=== PATIENT | female | born 1950 | race African-American/Black ===

== ENCOUNTER 2021-09-02 21:50 | Inpatient (IN) | payer MEDICARE, OTHER ==
[~2021-09-02] VITALS: Ht 154.9 cm; Wt 63.5 kg
--- NOTE | 2021-09-02 22:31 | NUR ---
PT BIBRA [facility] 30 C/O FEVER 101 & WHEEZING. UPON TRIAGE RECTAL TEMP 103.6. PT A/OX0. TOLERATING R/A AT 99%. CONNECTED PT TO POX AND MONITOR
--- NOTE | 2021-09-02 22:32 | NUR ---
PT COMING FROM [facility]. POLST: FULL CODE
[2021-09-02] MEDS ORDERED: ACETAMINOPHEN 650 MG/SUPP.RECT RC ONE ×2 (22:45→23:00)
[2021-09-02] MEDS ORDERED: ALBUTEROL FS 2.5 MG/0.5 ML VIAL.NEB ONE (22:46)
--- NOTE | 2021-09-02 22:50 | NUR ---
RAC #18G S/L; PATENT AND INTACT. BLOOD COLLECTED AND SENT TO LAB
--- NOTE | 2021-09-02 22:50 | NUR ---
RT AT PT'S BEDSIDE
[2021-09-02] MEDS ORDERED: ALBUTEROL FS 2.5 MG/0.5 ML VIAL.NEB NEB ONE (23:00)
[2021-09-02 23:14] LABS: BASOPHILS # (AUTO) 0.1 K/uL (0.0-0.2); BASOPHILS % (AUTO) 0.6 % (0.0-2.0); EOSINOPHILS % (AUTO) 0.1 % (0.0-6.0); HEMATOCRIT 34 % (33-45); HEMOGLOBIN 10.9 g/dL (11.5-14.8); LYMPHOCYTES # (AUTO) 1.7 K/uL (0.8-4.8); LYMPHOCYTES % (AUTO) 15.4 % (20.0-44.0); MEAN CORPUSCULAR HGB CONC 32 g/dl (31.0-36.0); MEAN CORPUSCULAR VOLUME 101 fL (82-100); MONOCYTES # (AUTO) 1.8 K/uL (0.1-1.30); MONOCYTES % (AUTO) 16.6 % (2.0-12.0); NEUTROPHILS # (AUTO) 7.5 K/uL (1.8-8.9); NEUTROPHILS % (AUTO) 67.3 % (43.0-81.0); PLATELET COUNT (AUTO) 269 K/uL (150-450); RED BLOOD CELL COUNT(AUTO) 3.36 MIL/uL (4.0-5.2); WHITE BLOOD COUNT (AUTO) 11.1 K/uL (4.3-11.0)
[2021-09-02 23:17] LABS: BILIRUBIN,URINE NEGATIVE (NEGATIVE); COLOR,URINE YELLOW (YELLOW); LEUKOCYTE ESTERASE ,URINE LARGE (NEGATIVE); NITRITE, URINE POSITIVE (NEGATIVE); PH,URINE 7.5 (5.0-8.0); PROTEIN,URINE 100 mg/dl (NEGATIVE); UGLUCOSE NEGATIVE (NEGATIVE)
[2021-09-02 23:46] LABS: CALCIUM, SERUM 8.4 mg/dL (8.5-10.1); CARBON DIOXIDE 22 mmol/L (21-32); CHLORIDE 105 mmol/L (98-107); CREATININE 1.2 mg/dL (0.6-1.3); GLUCOSE 123 mg/dL (74-106); POTASSIUM 4.3 mmol/L (3.5-5.1); SODIUM SERUM 138 mmol/L (136-145); UREA NITROGEN, BLOOD 12 mg/dL (7-18)
[2021-09-02 23:59] LABS: ALANINE AMINOTRANSFERASE 32 U/L (12-78); ALBUMIN 2.8 g/dL (3.4-5.0); ALKALINE PHOSPHATASE 79 U/L (46-116); ASPARTATE AMINOTRANSFERASE 21 U/L (15-37); BILIRUBIN,DIRECT 0.2 mg/dL (0.0-0.2); BILIRUBIN,TOTAL 0.6 mg/dL (0.2-1.0); TOTAL PROTEIN, SERUM 7.1 g/dL (6.4-8.2)
[2021-09-03] VITALS (7 sets, daily range): BP systolic 92–132; BP diastolic 54–77
[2021-09-03] MEDS ORDERED: ONDANSETRON HCL/PF 4 MG/2 ML VIAL IVP PRN
[2021-09-03] MEDS ORDERED: MAGNESIUM HYDROXIDE 30 ML UDC PO PRN
[2021-09-03] MEDS ORDERED: Z GUARD REMEDY 4 OZ OINT TP PRN
[2021-09-03] MEDS ORDERED: MAG HYDROX/AL HYDROX/SIMETH 30 ML UDC PO PRN
[2021-09-03] MEDS ORDERED: ACETAMINOPHEN 325 MG TABLET PO PRN
[2021-09-03] MEDS ORDERED: CEFTRIAXONE 1GM BAG (ER ONLY) 1 GM/50 ML PIGGYBACK IV ONE
[2021-09-03] MEDS ORDERED: ZOLPIDEM TARTRATE 5 MG TABLET PO PRN
[2021-09-03] MEDS ORDERED: CEFTRIAXONE 1GM BAG (ER ONLY) 50 ML IV ONE (00:17)
--- NOTE | 2021-09-03 00:39 | NUR ---
TELE 324-2
--- NOTE | 2021-09-03 00:55 | NUR ---
REPORT GIVEN TO NIDIA ALVARADO
--- NOTE | 2021-09-03 01:22 | NUR ---
PT TRANSFERRED TO 3W VIA ACLS PROTOCOL; VSS. ALL BELONGINGS WITH PT.
[2021-09-03] MEDS: IV NS 0.9% 1,000 ML IV PRN ×3 (01:51→20:11)
[2021-09-03] MEDS ORDERED: PANTOPRAZOLE 40 MG TABLET.DR PO SCH (07:30)
--- NOTE | 2021-09-03 07:35 | NUR ---
MACHINE HOSTLER OPENING NOTES RECEIVED IN BED, AWAKE, ALERT AND ORIENTED X1. VS STABLE, NO SHORTNESS OF BREATH NOTED, NOT IN ANY FORM OF RESPIRATORY DISTRESS. ON EXTERNAL CARDIAC MONITORING, SINUS RHYTHM 80. ON ROOM AIR, TOLERATED WELL. WITH IVF OF NORMAL SALINE 1L AT 125 ML/HR INFUSING WELL AT RIGHT ANTECUBITAL G18; PATENT AND INTACT. BED IS IN LOWEST LOCKED POSITION. TABLE AND CALL LIGHT WITHIN REACH. SAFETY MEASURES IN PLACED. NEEDS ATTENDED. WILL CONTINUE TO MONITOR
[2021-09-03 07:50] LABS: CALCIUM, SERUM 8.4 mg/dL (8.5-10.1); CREATININE 1.1 mg/dL (0.6-1.3); POTASSIUM 3.9 mmol/L (3.5-5.1)
[2021-09-03 08:09] LABS: BACTERIA,URINE MANY /HPF (None Seen); RBC,URINE 20-30 /HPF (0-2); SQUAMOUS EPITHELIAL CELL,UR None Seen /HPF (None Seen); WBC,URINE >100 /HPF (0-3)
[2021-09-03 08:24] LABS: BASOPHILS % (AUTO) 0.5 % (0.0-2.0); EOSINOPHILS % (AUTO) 0.3 % (0.0-6.0); HEMATOCRIT 30 % (33-45); HEMOGLOBIN 9.9 g/dL (11.5-14.8); LYMPHOCYTES # (AUTO) 1.4 K/uL (0.8-4.8); LYMPHOCYTES % (AUTO) 17.4 % (20.0-44.0); MEAN CORPUSCULAR HGB CONC 33 g/dl (31.0-36.0); MEAN CORPUSCULAR VOLUME 101 fL (82-100); MONOCYTES # (AUTO) 1.6 K/uL (0.1-1.30); MONOCYTES % (AUTO) 19.7 % (2.0-12.0); NEUTROPHILS # (AUTO) 5.1 K/uL (1.8-8.9); NEUTROPHILS % (AUTO) 62.1 % (43.0-81.0); PLATELET COUNT (AUTO) 254 K/uL (150-450); RED BLOOD CELL COUNT(AUTO) 2.99 MIL/uL (4.0-5.2); WHITE BLOOD COUNT (AUTO) 8.2 K/uL (4.3-11.0)
--- NOTE | 2021-09-03 08:30 | NUR ---
HYDROGEN POWER PLANT ENGINEER NOTES SEEN AND EXAMINED BY DR VERO ROCHE, WITH ORDERS MADE. DUE MEDS GIVEN IV AND SQ ORDERED.
[2021-09-03] MEDS: ENOXAPARIN SODIUM 40 MG/0.4 ML DISP.SYRIN SQ SCH (09:29)
[2021-09-03] MEDS: PANTOPRAZOLE 40 MG VIAL IV SCH (09:32)
[2021-09-03 13:42] LABS: LYMPHOCYTES % (MANUAL) 20 % (16-48); MONOCYTES % (MANUAL) 15 % (0-11.0); NEUTROPHILS % (MANUAL) 65 (42-76)
[2021-09-03 13:44] LABS: LYMPHOCYTES % (MANUAL) 17 % (16-48); MONOCYTES % (MANUAL) 19 % (0-11.0); NEUTROPHILS % (MANUAL) 64 (42-76)
[2021-09-03 16:00] LABS: THYROID STIMULATING HORMONE 3.569 uIU/mL (0.358-3.74)
--- NOTE | 2021-09-03 19:12 | NUR ---
HAND ORNAMENT MAKER CLOSING NOTES PATIENT IS IN BED, AWAKE, ALERT AND ORIENTED TIMES 1. BREATHING IS EVEN AND UNLABORED. NO SOB. SINUS RHYTHM 98. SAFETY MEASURES IN PLACED. BED IS IN LOWEST LOCKED POSITION. ENDORSED TO NEXT SHIFT.
--- NOTE | 2021-09-03 19:45 | NUR ---
RN OPENING NOTES RECEIVED PT IN BED, AWAKE. AOx1-2, WITH CONFUSION. ON RA AND TOLERATING WELL. NO SOB NOTED. NO S/SX OF RESPIRATORY DISTRESS NOTED. TELE MONITOR DETECTS SINUS RHYTHM, WITH RATE IN 90s. IV ACCESS IN RAC #18 RUNNING NS @ 125 ML/HR. SAFETY PRECAUTIONS IN PLACE: BED IN LOWEST, LOCKED POSITION, SIDERAILS UPx2, AND BRAKES ON. TABLE AND CALL LIGHT WITHIN REACH. WILL CONTINUE TO MONITOR.
[2021-09-03] MEDS: CEFTRIAXONE 1 G in IV D5W 50 ML IV SCH (20:12)
--- NOTE | 2021-09-03 20:37 | NUR ---
RECEIVED CALL FROM LAB STATING BLOOD CULTURE WAS POSITIVE FOR GRAM NEGATIVE RODS. WILL LET KNOW. Addendum: 09/04/21 at 0108 by LINNETTE NGUYEN RN DR. JAIRO ESCAMILLA.
[2021-09-04] VITALS: BP 126/73
[2021-09-04 04:00] VITALS: BP 117/71
[2021-09-04] MEDS: IV NS 0.9% 1,000 ML IV PRN ×2 (06:58→17:18)
--- NOTE | 2021-09-04 07:19 | NUR ---
RN CLOSING NOTES PT IN BED, AWAKE. AOx1-2, WITH CONFUSION. ON RA AND TOLERATING WELL. NO SOB NOTED. NO S/SX OF RESPIRATORY DISTRESS NOTED. TELE MONITOR DETECTS SINUS RHYTHM, WITH RATE IN 90s. IV ACCESS IN RAC #18 RUNNING NS @ 125 ML/HR. ALL NEEDS MET. PT KEPT CLEAN AND DRY. SAFETY PRECAUTIONS IN PLACE: BED IN LOWEST, LOCKED POSITION, SIDERAILS UPx2, AND BRAKES ON. TABLE AND CALL LIGHT WITHIN REACH. WILL ENDORSE TO ONCOMING SHIFT FOR KWAME.
--- NOTE | 2021-09-04 07:35 | NUR ---
WASTE WATER PLANT OPERATOR OPENING NOTES RECEIVED ON BED; ALERT, AWAKE AND RESPONSIVE TIMES 2. NOT IN ANY FORM OF RESPIRATORY DISTRESS. NO SHORTNESS OF BREATH NOTED. ON ROOM AIR, TOLERATING WELL. WITH IVF OF NS 1L AT 125 ML/HR INFUSING WELL AT RIGHT AC. DENIES ANY PAIN. BED PLACED IN LOWEST LOCKED POSITION. TABLE AND CALL LIGHT WITHIN REACH. SIDE RAILS UP TIMES 2. SAFETY MEASURES IN PLACED. WILL CONTINUE TO MONITOR
[2021-09-04 07:43] LABS: BASOPHILS % (AUTO) 0.6 % (0.0-2.0); EOSINOPHILS % (AUTO) 0.6 % (0.0-6.0); HEMATOCRIT 28 % (33-45); HEMOGLOBIN 9.1 g/dL (11.5-14.8); LYMPHOCYTES # (AUTO) 1.2 K/uL (0.8-4.8); LYMPHOCYTES % (AUTO) 19.3 % (20.0-44.0); MEAN CORPUSCULAR HGB CONC 32 g/dl (31.0-36.0); MEAN CORPUSCULAR VOLUME 101 fL (82-100); MONOCYTES # (AUTO) 1.1 K/uL (0.1-1.30); MONOCYTES % (AUTO) 17.9 % (2.0-12.0); NEUTROPHILS # (AUTO) 3.7 K/uL (1.8-8.9); NEUTROPHILS % (AUTO) 61.6 % (43.0-81.0); PLATELET COUNT (AUTO) 269 K/uL (150-450); RED BLOOD CELL COUNT(AUTO) 2.79 MIL/uL (4.0-5.2); WHITE BLOOD COUNT (AUTO) 6.1 K/uL (4.3-11.0)
[2021-09-04 08:00] VITALS: BP 121/66
--- NOTE | 2021-09-04 08:05 | NUR ---
ARCHITECTURAL PROJECT MANAGER NOTES SEEN AND EXAMINED BY VERO ROCHE MD; WITH ORDERS MADE AND CARRIED OUT.
[2021-09-04 08:46] LABS: CALCIUM, SERUM 7.9 mg/dL (8.5-10.1); CREATININE 0.7 mg/dL (0.6-1.3); POTASSIUM 3.8 mmol/L (3.5-5.1)
[2021-09-04] MEDS: PANTOPRAZOLE 40 MG VIAL IV SCH (09:42)
[2021-09-04] MEDS: ENOXAPARIN SODIUM 40 MG/0.4 ML DISP.SYRIN SQ SCH (09:44)
--- NOTE | 2021-09-04 10:00 | NUR ---
SUPERVISOR REWORK NOTES DUE MEDS GIVEN IV AND SQ ORDERED
[2021-09-04 11:12] LABS: LYMPHOCYTES % (MANUAL) 20 % (16-48); MONOCYTES % (MANUAL) 19 % (0-11.0); NEUTROPHILS % (MANUAL) 61 (42-76)
[2021-09-04 16:00] VITALS: BP 126/76
--- NOTE | 2021-09-04 18:13 | NUR ---
ms rn on bed,no distress noted, will monitor patient.
[2021-09-04 20:00] VITALS: BP 105/59
[2021-09-04] MEDS: risperiDONE 0.25 MG TABLET PO SCH (20:14)
[2021-09-04] MEDS: RIVASTIGMINE TARTRATE 1.5 MG CAPSULE PO SCH (20:15)
[2021-09-04] MEDS: CEFTRIAXONE 1 G in IV D5W 50 ML IV SCH (20:15)
--- NOTE | 2021-09-05 06:07 | NUR ---
MILLI JACOB NOTES PT REFUSED BLOOD DRAW. EXPLAINED TO PT IMPORTANCE OF BLOOD DRAW IN HIS POC BUT PT STILL REFUSED. WILL TRY AGAIN LATER PER LAB. Addendum: 09/05/21 at 0607 by TIARA ASTUDILLO RN MS JACOB NOTES SHEFALI MORLEY
--- NOTE | 2021-09-05 06:30 | NUR ---
MS RN NOTES AWAKE & RESPONSIVE. NOT IN ANY DISTRESS. NO SOB NOTED. DENIES ANY PAIN OR DISCOMFORT AT THIS TIME. WITH IVF INFUSING WELL. AM CARE DONE. MONITORED ACCORDINGLY. CALL LIGHT WITHIN REACH. BED IN LOWEST POSITION. SR UP X 3 WITH BED ALARM ON FOR SAFETY. WILL ENDORSE TO NEXT SHIFT.
--- NOTE | 2021-09-05 07:30 | NUR ---
MS RN OPENING NOTES RECEIVED PATIENT ON BED AWAKE. ALERT, AWAKE AND RESPONSIVE TIMES 2. NO RESPIRATORY DISTRESS NOTED. NO SHORTNESS OF BREATH NOTED. ON ROOM AIR, TOLERATING WELL. WITH IVF OF NS AT 125 ML/HR INFUSING WELL AT RIGHT AC. DENIES ANY PAIN AND DISCOMFORT. BED IN LOWEST LOCKED POSITION. TABLE AND CALL LIGHT WITHIN REACH. SIDE RAILS UP TIMES 2. SAFETY MEASURES IN PLACED. WILL CONTINUE TO MONITOR
[2021-09-05] MEDS: RIVASTIGMINE TARTRATE 1.5 MG CAPSULE PO SCH (07:40)
[2021-09-05] MEDS: risperiDONE 0.25 MG TABLET PO SCH (07:40)
[2021-09-05] MEDS ORDERED: RISP0.2515 PO (07:59)
[2021-09-05] MEDS ORDERED: RIVA1.5C13 PO (07:59)
[2021-09-05] MEDS ORDERED: SULF1TAB48 PO (07:59)
[2021-09-05 08:00] VITALS: BP 110/71
[2021-09-05] MEDS: PANTOPRAZOLE 40 MG VIAL IV SCH (08:35)
[2021-09-05] MEDS: ENOXAPARIN SODIUM 40 MG/0.4 ML DISP.SYRIN SQ SCH (08:37)
[2021-09-05 12:25] LABS: EOSINOPHILS % (AUTO) 1.3 % (0.0-6.0); HEMATOCRIT 29 % (33-45); HEMOGLOBIN 9.6 g/dL (11.5-14.8); LYMPHOCYTES # (AUTO) 1.2 K/uL (0.8-4.8); LYMPHOCYTES % (AUTO) 27.3 % (20.0-44.0); MEAN CORPUSCULAR HGB CONC 33 g/dl (31.0-36.0); MEAN CORPUSCULAR VOLUME 99 fL (82-100); MONOCYTES # (AUTO) 0.6 K/uL (0.1-1.30); MONOCYTES % (AUTO) 13.9 % (2.0-12.0); NEUTROPHILS # (AUTO) 2.4 K/uL (1.8-8.9); NEUTROPHILS % (AUTO) 56.5 % (43.0-81.0); PLATELET COUNT (AUTO) 312 K/uL (150-450); RED BLOOD CELL COUNT(AUTO) 2.96 MIL/uL (4.0-5.2); WHITE BLOOD COUNT (AUTO) 4.2 K/uL (4.3-11.0)
[2021-09-05 12:26] LABS: CALCIUM, SERUM 8.5 mg/dL (8.5-10.1); CREATININE 0.8 mg/dL (0.6-1.3); POTASSIUM 3.5 mmol/L (3.5-5.1)
--- NOTE | 2021-09-05 13:30 | NUR ---
RN NOTES CALLED JEN JACOB AT [facility] WITH PHONE NUMBER [phone] AT 1330 AND GAVE REPORT FOR THE PATIENT.
--- NOTE | 2021-09-05 14:08 | NUR ---
RN NOTES 3 MT FROM [facility] 275 CAME AND RADIATION ENGINEER PATIENT AT 1400 WITH RENATO.
--- NOTE | 2021-09-05 14:09 | NUR ---
SERVER SYSTEMS ADMINISTRATOR NOTES PATIENT DISCHARGED AT 1400 IN STABLE CONDITION. VITAL SIGNS IN STABLE CONDITION. NO PAIN NOTED. NO RESPIRATORY DISTRESS NOTED. IV FROM LEFT HAND REMOVED COVERED WITH DRY DRESSING.NO BLEEDING NOTED. ID BAND REMOVED FROM BOTH HANDS. BELONGINGS ACCOUNTED AND SIGNED FOR WITH ME AND JOVEN THE RN SINCE PATIENT IS UNABLE TO SIGN. PATIENT LEFT THE FACILITY IN GOOD CONDITION. MD AND CHARGE NURSE AWARE OF THE DISCHARGE.
[2021-09-06] MEDS ORDERED: PANTOPRAZOLE 40 MG TABLET.DR PO SCH (07:30)
== END 2021-09-05 14:00 | DRG 872 ==
LOC: ER 21:58 → TELE 09-03 00:46 → MED 09-04 10:51
PROVIDERS: ADMIT Student in an Organized Health Care Education/Training Program; ATTEND Family Medicine
DX: A41.51 Sepsis due to Escherichia coli [E. coli] (principal); E44.0 Moderate protein-calorie malnutrition; N39.0 Urinary tract infection, site not specified; E78.5 Hyperlipidemia, unspecified; F03.90 Unspecified dementia, unspecified severity, without behavioral disturbance, psychotic disturbance, mood disturbance, and anxiety; G40.909 Epilepsy, unspecified, not intractable, without status epilepticus; Z20.822 Contact with and (suspected) exposure to COVID-19; Z79.01 Long term (current) use of anticoagulants; F22 Delusional disorders; F29 Unspecified psychosis not due to a substance or known physiological condition; D63.8 Anemia in other chronic diseases classified elsewhere; E88.09 Other disorders of plasma-protein metabolism, not elsewhere classified; B96.20 Unspecified Escherichia coli [E. coli] as the cause of diseases classified elsewhere; R73.03 Prediabetes; R73.9 Hyperglycemia, unspecified
CPT/HCPCS: 36415; 70450-TC; 71045-TC; 80048-TC; 80076-TC; 81001; 83605-TC; 83735-TC; 83880; 84100-TC; 84443-TC; 84484-TC; 85025-TC; 85730-TC; 87040-TC; 87081-TC; 87086-TC; 87186-TC; 92526; 92611-TC; 97116-TC; 97530-TC; C9113; C9803; G0378; J0696; J1650; J7030; J7060

== ENCOUNTER 2021-09-08 13:38 | Emergency (ER) | payer MEDICARE, OTHER ==
[~2021-09-08] VITALS: Ht 154.9 cm; Wt 62.1 kg
[~2021-09-08 13:38] MED LIST: RISP0.2515 PO; RIVA1.5C13 PO; SULF1TAB48 PO
--- NOTE | 2021-09-08 13:45 | NUR ---
[facility] FOR WITNESSED SEIZURE LASTING "30SECS" + VOMITING. ZOFRAM 4MG IVP GIVEN ELECTRONIC GLUING MACHINE OPERATOR WITH BS152. PATIENT CAME ASLEEP, AROUSABLE BUT STILL CONFUSED. CAME WITH IV CANNULA G20 ON LEFT HAND. PLACED COMFORTABLY IN BED. VITALS CHECKED. CHANGE TO HOSPITAL GOWN.
--- NOTE | 2021-09-08 13:45 | NUR ---
PLACED PATIENT ON SEIZURE PRECAUTION
--- NOTE | 2021-09-08 13:50 | NUR ---
BLOOD DRAWN AND SENT TO LAB
--- NOTE | 2021-09-08 14:12 | NUR ---
RADIOLOGY AT BEDSIDE FOR CHEST XRAY.
[2021-09-08 14:29] LABS: BASOPHILS # (AUTO) 0.1 K/uL (0.0-0.2); BASOPHILS % (AUTO) 0.8 % (0.0-2.0); EOSINOPHILS % (AUTO) 0.1 % (0.0-6.0); HEMATOCRIT 31 % (33-45); HEMOGLOBIN 9.7 g/dL (11.5-14.8); LYMPHOCYTES # (AUTO) 1.4 K/uL (0.8-4.8); LYMPHOCYTES % (AUTO) 16.7 % (20.0-44.0); MEAN CORPUSCULAR HGB CONC 32 g/dl (31.0-36.0); MEAN CORPUSCULAR VOLUME 101 fL (82-100); MONOCYTES # (AUTO) 0.4 K/uL (0.1-1.30); MONOCYTES % (AUTO) 4.2 % (2.0-12.0); NEUTROPHILS # (AUTO) 6.7 K/uL (1.8-8.9); NEUTROPHILS % (AUTO) 78.2 % (43.0-81.0); PLATELET COUNT (AUTO) 434 K/uL (150-450); RED BLOOD CELL COUNT(AUTO) 3.02 MIL/uL (4.0-5.2); WHITE BLOOD COUNT (AUTO) 8.5 K/uL (4.3-11.0)
--- NOTE | 2021-09-08 14:30 | NUR ---
pt is wheeled to ct scan via [facility].
--- NOTE | 2021-09-08 14:30 | NUR ---
WHEELED OUT VIA RNEY FOR CT SCAN
[2021-09-08 14:35] LABS: CALCIUM, SERUM 8.8 mg/dL (8.5-10.1); CARBON DIOXIDE 20 mmol/L (21-32); CHLORIDE 106 mmol/L (98-107); GLUCOSE 138 mg/dL (74-106); POTASSIUM 3.9 mmol/L (3.5-5.1); SODIUM SERUM 138 mmol/L (136-145); UREA NITROGEN, BLOOD 11 mg/dL (7-18)
[2021-09-08 14:41] LABS: ALANINE AMINOTRANSFERASE 36 U/L (12-78); ALBUMIN 2.8 g/dL (3.4-5.0); ALCOHOL, BLOOD < 3 mg/dL (0-0); ALKALINE PHOSPHATASE 74 U/L (46-116); ASPARTATE AMINOTRANSFERASE 14 U/L (15-37); BILIRUBIN,DIRECT 0.1 mg/dL (0.0-0.2); BILIRUBIN,TOTAL 0.2 mg/dL (0.2-1.0); TOTAL PROTEIN, SERUM 7.4 g/dL (6.4-8.2)
--- NOTE | 2021-09-08 15:02 | NUR ---
[facility] CALLED FOR TRANSPORT ETA 30 MINS PER JOLEEN.
--- NOTE | 2021-09-08 15:29 | NUR ---
REPORT GIVEN TO NIDIA WHITMAN OF [facility] FOR KWAME.
--- NOTE | 2021-09-08 15:32 | NUR ---
REPORT GIVEN TO EMT FOR PT TRANSPORT BACK TO [facility].
[2021-09-08 15:33] VITALS: BP 135/72
--- NOTE | 2021-09-08 15:33 | NUR ---
IV removed. Catheter intact and site benign. Pressure and 4x4 applied to site. No bleeding noted.
[2021-09-08 15:41] LABS: BAND % (MANUAL) 2 % (0.0-5.0); LYMPHOCYTES % (MANUAL) 22 % (16-48); MONOCYTES % (MANUAL) 6 % (0-11.0); NEUTROPHILS % (MANUAL) 70 (42-76)
== END 2021-09-08 15:39 ==
LOC: ER 13:40
DX: G40.909 Epilepsy, unspecified, not intractable, without status epilepticus (principal); E78.5 Hyperlipidemia, unspecified; Z86.69 Personal history of other diseases of the nervous system and sense organs; Z87.440 Personal history of urinary (tract) infections; Z79.899 Other long term (current) drug therapy
CPT/HCPCS: 36415; 70450-TC; 71045-TC; 80048-TC; 80076-TC; 85025-TC; G0480

== ENCOUNTER 2021-10-19 07:50 | Inpatient (IN) | payer MEDICARE, OTHER ==
[~2021-10-19] VITALS: Ht 154.9 cm; Wt 56.7 kg
--- NOTE | 2021-10-19 07:55 | NUR ---
BIB RA [facility] EP[facility], VERSED GIVEN AUTOMOBILE UPHOLSTERY TRIM INSTALLER. PLACED ON BE NOT RESPONDING TO VERBAL AND PAINFUL STIMULI. NOT IN DISTRESS BREATHING SPONTANEOUSLY SATURATING AT 97% ON ROOM AIR.
--- NOTE | 2021-10-19 08:00 | NUR ---
AT BED SIDE
--- NOTE | 2021-10-19 08:20 | NUR ---
BLOOD DRAWN, SWAB FOR RAPID COVID 19 AND SENT TO LAB.
[2021-10-19 08:24] LABS: BASOPHILS % (AUTO) 0.4 % (0.0-2.0); EOSINOPHILS % (AUTO) 0.1 % (0.0-6.0); HEMATOCRIT 37 % (33-45); HEMOGLOBIN 12.3 g/dL (11.5-14.8); LYMPHOCYTES % (AUTO) 15.3 % (20.0-44.0); MEAN CORPUSCULAR HGB CONC 33 g/dl (31.0-36.0); MEAN CORPUSCULAR VOLUME 98 fL (82-100); MONOCYTES # (AUTO) 0.1 K/uL (0.1-1.30); MONOCYTES % (AUTO) 1.8 % (2.0-12.0); NEUTROPHILS # (AUTO) 5.2 K/uL (1.8-8.9); NEUTROPHILS % (AUTO) 82.4 % (43.0-81.0); PLATELET COUNT (AUTO) 261 K/uL (150-450); RED BLOOD CELL COUNT(AUTO) 3.76 MIL/uL (4.0-5.2); WHITE BLOOD COUNT (AUTO) 6.3 K/uL (4.3-11.0)
--- NOTE | 2021-10-19 08:25 | NUR ---
PATIENT WENT FOR CT HEAD VIA [facility]
[2021-10-19] MEDS ORDERED: DIVA500T2 PO (08:26)
[2021-10-19] MEDS ORDERED: ACET-868 PO (08:26)
[2021-10-19] MEDS ORDERED: RISP0.2515 PO (08:26)
[2021-10-19] MEDS ORDERED: ACET-2605 PO (08:26)
[2021-10-19] MEDS ORDERED: RIVA1.5C13 PO (08:26)
[2021-10-19] MEDS ORDERED: DEXT38GE12 PO (08:26)
[2021-10-19] MEDS ORDERED: POLY17PO4 PO (08:26)
[2021-10-19] MEDS ORDERED: MAGN400O6 PO (08:26)
[2021-10-19] MEDS ORDERED: TOPI100T PO (08:26)
[2021-10-19] MEDS ORDERED: GLUC1KIT IM (08:26)
[2021-10-19] MEDS ORDERED: IV NS 0.9% 1,000 ML BAG IV ONE (08:30)
--- NOTE | 2021-10-19 09:00 | NUR ---
URINE SAMPLE SENT TO LAB
[2021-10-19 09:43] LABS: ALANINE AMINOTRANSFERASE 17 U/L (12-78); ALBUMIN 3.6 g/dL (3.4-5.0); ALKALINE PHOSPHATASE 86 U/L (46-116); ASPARTATE AMINOTRANSFERASE 11 U/L (15-37); BILIRUBIN,DIRECT 0.1 mg/dL (0.0-0.2); BILIRUBIN,TOTAL 0.2 mg/dL (0.2-1.0); CARBON DIOXIDE 25 mmol/L (21-32); CREATININE 0.9 mg/dL (0.6-1.3); GLUCOSE 119 mg/dL (74-106); TOTAL PROTEIN, SERUM 7.8 g/dL (6.4-8.2); UREA NITROGEN, BLOOD 13 mg/dL (7-18)
[2021-10-19 09:50] LABS: BILIRUBIN,URINE NEGATIVE (NEGATIVE); COLOR,URINE YELLOW (YELLOW); LEUKOCYTE ESTERASE ,URINE NEGATIVE (NEGATIVE); NITRITE, URINE NEGATIVE (NEGATIVE); PH,URINE 7.5 (5.0-8.0); PROTEIN,URINE NEGATIVE (NEGATIVE); UGLUCOSE NEGATIVE (NEGATIVE); UROBILINOGEN,URINE 0.2 EU/dL (0.2)
[2021-10-19 09:57] LABS: ALCOHOL, BLOOD < 3 mg/dL (0-0)
[2021-10-19 10:21] LABS: CALCIUM, SERUM 9.2 mg/dL (8.5-10.1)
[2021-10-19 10:23] LABS: POTASSIUM 4.8 mmol/L (3.5-5.1); SODIUM SERUM 141 mmol/L (136-145)
[2021-10-19 10:26] LABS: CHLORIDE 108 mmol/L (98-107)
--- NOTE | 2021-10-19 11:13 | NUR ---
WHEELED PATIENT TO ROOM
--- NOTE | 2021-10-19 11:15 | NUR ---
PATIENT TRANFER TO W-106 REPORT GIVEN TO BOBY FOR KWAME.
[2021-10-19] MEDS ORDERED: MAGNESIUM HYDROXIDE 30 ML UDC PO PRN (11:30)
[2021-10-19] MEDS ORDERED: ACETAMINOPHEN ES 500 MG TABLET PO PRN (11:30)
[2021-10-19] MEDS ORDERED: POLYETHYLENE GLYCOL 3350 17 GM POWD.PACK PO PRN (11:30)
[2021-10-19] MEDS ORDERED: LORAZEPAM INJ 2 MG/ML VIAL IV PRN (11:30)
[2021-10-19] MEDS ORDERED: Z GUARD REMEDY 4 OZ OINT TP PRN (11:30)
[2021-10-19] MEDS ORDERED: ONDANSETRON HCL/PF 4 MG/2 ML VIAL IVP PRN (11:30)
--- NOTE | 2021-10-19 11:44 | NUR ---
ASSISTANT UNIT FORESTER NOTE T 100.2, DR BRUCE WELSH NOTIFIED WITH ORDER TYLENOL SUPPOSITORY , PATIENT IS LETHARGIC AT THIS TIME ,OK TO ORDER SWALLOW EVAL WILL F\U
--- NOTE | 2021-10-19 11:45 | NUR ---
SALES DEVELOPMENT REPRESENTATIVE NOTES RECEIVED PATIENT FROM ER VIA GURNEY, LETHARGIC, RESPONDS TO LOCALIZED PAIN ONLY. ON 2L O2 NASAL CANULA. NO DISTRESS, NO SOB, RESPIRATION UNLABORED. O2 SAT 97%. SR HR 84 ON MONITOR. NO SIGNS OF PAIN/DISCOMFORT. IV ACCESS ON LAC G 20, FLUSHES WELL, SITE CLEAR. ABD SOFT, NON TENDER. BED REST FOR NOW. NO SKIN ISSUES. ON DIAPERS. HOB UP 30 DEG. SEIZURE PRECAUTION/PADDINGS IN PLACE. BED LOW LOCKED, SR UP X 3, CALL LIGHT WITHIN REACH. SAFETY MEASURES IN PLACE. WILL CONT TO MONITOR
[2021-10-19 11:53] VITALS: BP 111/55
[2021-10-19] MEDS ORDERED: ACETAMINOPHEN 650 MG/SUPP.RECT RC PRN (12:00)
--- NOTE | 2021-10-19 12:21 | NUR ---
SUPERVISOR SHELLFISH FARMING NOTE PATIENT LETHARGIC, UNABLE TO TAKE PO MEDS ,SPOKE WITH DR BRUCE MEZA TO CHANGE DEPAKOTE AND PROTONIX FROM PO TO IV ,PHARMACY NOTIFIED , WILL F\U
[2021-10-19] MEDS: ENOXAPARIN SODIUM 40 MG/0.4 ML DISP.SYRIN SQ SCH (12:28)
[2021-10-19] MEDS: IV NS 0.9% 1,000 ML IV PRN (12:29)
[2021-10-19] MEDS ORDERED: DOSE PER PHARMACY (MD SPECIFY MEDICATION) 1 EA IV PRN (12:30)
--- NOTE | 2021-10-19 12:30 | NUR ---
RN NOTES TEMPERATURE RECHECKED 99 DEG
[2021-10-19] MEDS ORDERED: DIVALPROEX SODIUM 500 MG TABLET.DR PO SCH (13:00)
[2021-10-19] MEDS: VALPROATE 500 MG in IV D5W 100 ML IV SCH ×2 (13:41→20:32)
--- NOTE | 2021-10-19 14:20 | NUR ---
LAB NURSE NOTE CALLED SON RAMON ANDERSON LEFT A MESSAGE ABOUT SOFT RESTRAIN, WILL F\U
--- NOTE | 2021-10-19 15:01 | NUR ---
SENIOR LEAD SOFTWARE ENGINEER NOTE NG TUBE PLACED ORDERED , PLACEMENT VERIFIED BY AUSCULTATION BY AIR , CHEST X RAY DONE , PER RADIOLOGY N G TUBE IS ADEQUATE POSITION IN STOMACH, WILL F\U
[2021-10-19 16:00] VITALS: BP 143/83
--- NOTE | 2021-10-19 18:56 | NUR ---
CLINICAL DATA COORDINATOR CLOSING NOTES PATIENT IN BED, STILL LETHARGIC, RESPONDS TO LOCALIZED PAIN ONLY. ON 2L O2 NASAL CANULA. NO DISTRESS, NO SOB, RESPIRATION UNLABORED. O2 SAT 97%. SR MONITOR. NO SIGNS OF PAIN/DISCOMFORT. IV ACCESS ON LAC G 20, FLUSHES WELL, SITE CLEAR. NS AT 75 ML INFUSING WELL. NGT IN PLACE. CLAMPED. NPO EXCEPT MEDS. ABD SOFT, NON TENDER. BED REST FOR NOW. NO SKIN ISSUES. ON DIAPERS. HOB UP 30 DEG. SEIZURE PRECAUTION/PADDINGS IN PLACE. BED LOW LOCKED, SR UP X 3, CALL LIGHT WITHIN REACH. SAFETY MEASURES IN PLACE. ALL NEEDS MET. WILL ENDORSE TO NEXT SHIFT FOR KWAME.
[2021-10-19] MEDS: risperiDONE 0.25 MG TABLET PO SCH (20:31)
[2021-10-19] MEDS: TOPIRAMATE 100 MG TABLET PO SCH (20:31)
[2021-10-19] MEDS: RIVASTIGMINE TARTRATE 1.5 MG CAPSULE PO SCH (20:31)
[2021-10-19] MEDS: ACETAMINOPHEN 325 MG TABLET PO PRN (20:32)
[2021-10-20] MEDS: IV NS 0.9% 1,000 ML IV PRN ×2 (04:45→19:52)
[2021-10-20] MEDS: VALPROATE 500 MG in IV D5W 100 ML IV SCH ×2 (04:47→12:22)
[2021-10-20 06:33] LABS: BASOPHILS % (AUTO) 0.8 % (0.0-2.0); EOSINOPHILS % (AUTO) 0.4 % (0.0-6.0); HEMATOCRIT 34 % (33-45); HEMOGLOBIN 11.2 g/dL (11.5-14.8); LYMPHOCYTES # (AUTO) 1.9 K/uL (0.8-4.8); LYMPHOCYTES % (AUTO) 48.4 % (20.0-44.0); MEAN CORPUSCULAR HGB CONC 33 g/dl (31.0-36.0); MEAN CORPUSCULAR VOLUME 99 fL (82-100); MONOCYTES # (AUTO) 0.3 K/uL (0.1-1.30); MONOCYTES % (AUTO) 6.9 % (2.0-12.0); NEUTROPHILS # (AUTO) 1.7 K/uL (1.8-8.9); NEUTROPHILS % (AUTO) 43.5 % (43.0-81.0); PLATELET COUNT (AUTO) 238 K/uL (150-450); RED BLOOD CELL COUNT(AUTO) 3.41 MIL/uL (4.0-5.2)
--- NOTE | 2021-10-20 06:44 | NUR ---
car repairer pullman Closing Note Pt in bed, continues to be lethargic, but withdraws from localized pain. Pt remains to be on 2L NC, O2sat 100%. No s/s of resp distress, SOB; non-labored breathing. Pt attached to external monitor and is SR throughout the night with HR 63-73. Bilateral soft wrist restraints are continued; no s/s of impaired circulation and skin remains intact. NGT noted to be at 55 and is intact and patent. LAC IV intact and patent. Bed in lowest position, side rails up x3, call light within reach. Will endorse care to dayshift to continue care.
[2021-10-20] MEDS ORDERED: PANTOPRAZOLE 40 MG TABLET.DR PO SCH (07:30)
[2021-10-20] MEDS: TOPIRAMATE 100 MG TABLET PO SCH ×2 (08:22→21:12)
[2021-10-20] MEDS: RIVASTIGMINE TARTRATE 1.5 MG CAPSULE PO SCH ×2 (08:22→21:12)
[2021-10-20] MEDS: PANTOPRAZOLE 40 MG VIAL IV SCH (08:22)
[2021-10-20] MEDS: risperiDONE 0.25 MG TABLET PO SCH ×2 (08:22→21:12)
[2021-10-20 08:37] LABS: BILIRUBIN,TOTAL 0.4 mg/dL (0.2-1.0); CALCIUM, SERUM 8.5 mg/dL (8.5-10.1); CREATININE 0.9 mg/dL (0.6-1.3); MAGNESIUM 2.1 mg/dL (1.8-2.4); PHOSPHORUS 2.9 mg/dL (2.5-4.9); POTASSIUM 3.9 mmol/L (3.5-5.1); TOTAL PROTEIN, SERUM 6.6 g/dL (6.4-8.2)
[2021-10-20 08:54] LABS: THYROID STIMULATING HORMONE 1.199 uIU/mL (0.358-3.74)
[2021-10-20] MEDS: ENOXAPARIN SODIUM 40 MG/0.4 ML DISP.SYRIN SQ SCH (11:07)
[2021-10-20 12:00] VITALS: BP 151/93
[2021-10-20 13:36] VITALS: BP 118/55
[2021-10-20] MEDS: JEVITY 1.2 CAL 1,000 ML BOTTLE NG PRN (15:55)
[2021-10-20 16:00] VITALS: BP 119/56
--- NOTE | 2021-10-20 17:23 | NUR ---
RN NOTE PT RESTING IN BED, REMAINS LETHARGIC. RESPONSIVE TO PAINFUL STIMULI. ON O2 AT 2L VIA NC WITH O2 SAT OF 99. NGT IN PLACE AND PATENT. STARTED ON FEEDING JEVITY 1.2 @50/HR. TOLERATING WELL. PT HAS IV ACCESS TO LAC G20 WITH IVF NS @75/HR. CONTINUES ON ASPIRATION AND SEIZURE PREC. DUE MEDS GIVEN. MORNING CARE DONE. NEEDS ATTENDED. WILL CONTINUE TO MONITOR. SAFETY MEASURES FOLLOWED.
--- NOTE | 2021-10-20 19:10 | NUR ---
RN OPENING NOTES RECEIVED PATIENT ON BED, SLEEPING. ON NASAL CANULA @ 2LPM. RESPIRATORY EVEN AND UNLABORED, NO SOB NOTED. REMAIN AFEBRILE. NO S/S OF DISTRESS NOTED. NOTED WITH LAC PERIPHERAL LINE, INTACT PATENT, FLUSHED WITH NS. NO INFILTRATION NOTED AT SITE. RUNNING WITH NS 1L @ 75ML/HR. NG TUBE INTACT, INPLACED, VERIFIED PLACEMENT BY AUSCULTATION, NO RESIDUAL NOTED UPON ASPIRATION, FLUSH WITH WATER, RUNNING WITH JEVITY 1.5 @ 50 ML/HR. SAFETY MEASURE PROVIDED. SEIZURE AND ASPIRATION PRECAUTION PROVIDED. BED IN LOWEST POSITION, LOCKED. BED ALARM ARMED. CONTINUE TO MONITOR.
[2021-10-20 20:00] VITALS: BP 113/79
[2021-10-20] MEDS: VALPROIC ACID 250 MG/5 ML UDC GT SCH (21:11)
[2021-10-21] VITALS: BP 126/70
[2021-10-21 04:00] VITALS: BP 107/66
[2021-10-21 06:50] LABS: BASOPHILS % (AUTO) 0.3 % (0.0-2.0); EOSINOPHILS % (AUTO) 1.1 % (0.0-6.0); HEMATOCRIT 34 % (33-45); LYMPHOCYTES # (AUTO) 1.3 K/uL (0.8-4.8); LYMPHOCYTES % (AUTO) 22.8 % (20.0-44.0); MEAN CORPUSCULAR HGB CONC 33 g/dl (31.0-36.0); MEAN CORPUSCULAR VOLUME 99 fL (82-100); MONOCYTES # (AUTO) 0.4 K/uL (0.1-1.30); MONOCYTES % (AUTO) 6.6 % (2.0-12.0); NEUTROPHILS % (AUTO) 69.2 % (43.0-81.0); PLATELET COUNT (AUTO) 241 K/uL (150-450); RED BLOOD CELL COUNT(AUTO) 3.43 MIL/uL (4.0-5.2); WHITE BLOOD COUNT (AUTO) 5.8 K/uL (4.3-11.0)
[2021-10-21 07:03] LABS: CALCIUM, SERUM 8.4 mg/dL (8.5-10.1); CREATININE 0.7 mg/dL (0.6-1.3); PHOSPHORUS 2.7 mg/dL (2.5-4.9); POTASSIUM 3.6 mmol/L (3.5-5.1)
--- NOTE | 2021-10-21 07:22 | NUR ---
STRAIGHT LINE EDGER NOTES RECEIVED PATIENT ON BED, RESTING COMFORTABLY. ON NASAL CANULA @ 2LPM. RESPIRATORY EVEN AND UNLABORED, NO SOB NOTED. REMAIN AFEBRILE. NO S/S OF DISTRESS NOTED. NOTED WITH LAC PERIPHERAL LINE, INTACT PATENT, RUNNING WITH NS 1L @ 75ML/HR. NG TUBE INTACT, IN PLACED, VERIFIED PLACEMENT BY AUSCULTATION, NO RESIDUAL NOTED UPON ASPIRATION, RUNNING WITH JEVITY 1.5 @ 50 ML/HR. SAFETY MEASURE PROVIDED. SEIZURE AND ASPIRATION PRECAUTION PROVIDED. BED IN LOWEST POSITION, LOCKED. BED ALARM ARMED. CONTINUE TO MONITOR.
--- NOTE | 2021-10-21 07:22 | NUR ---
RN NOTES PATIENT REMAIN STABLE THROUGH OUT THE SHIFT. RESPIRATORY EVEN AND UNLABORED, NO SOB NOTED. REMAIN AFEBRILE. NO S/S OF DISTRESS NOTED. RUNNING WITH NS 1L @ 75ML/HR. RUNNING WITH JEVITY 1.5 @ 50 ML/HR, HEAD OF BED KEPT ELEVATED. ALL DUE MEDS GIVEN ORDERED. SAFETY MEASURE PROVIDED. SEIZURE AND ASPIRATION PRECAUTION PROVIDED. BED IN LOWEST POSITION, LOCKED. BED ALARM ARMED. ENDORSED TO NEXT SHIFT.
[2021-10-21 08:00] VITALS: BP 122/67
[2021-10-21] MEDS: risperiDONE 0.25 MG TABLET PO SCH ×2 (08:37→21:31)
[2021-10-21] MEDS: PANTOPRAZOLE 40 MG VIAL IV SCH (08:37)
[2021-10-21] MEDS: RIVASTIGMINE TARTRATE 1.5 MG CAPSULE PO SCH ×2 (08:37→21:31)
[2021-10-21] MEDS: TOPIRAMATE 100 MG TABLET PO SCH ×2 (08:37→21:31)
[2021-10-21] MEDS: VALPROIC ACID 250 MG/5 ML UDC GT SCH ×3 (08:38→21:31)
[2021-10-21] MEDS: IV NS 0.9% 1,000 ML IV PRN ×2 (08:45→21:41)
--- NOTE | 2021-10-21 09:56 | NUR ---
teletype clerk note rounds made all needs attended cont on ivf and g tube feeding, keep hob elevated ,will cont to monitor
[2021-10-21] MEDS: ENOXAPARIN SODIUM 40 MG/0.4 ML DISP.SYRIN SQ SCH (11:53)
[2021-10-21 12:00] VITALS: BP 122/77
--- NOTE | 2021-10-21 12:00 | NUR ---
PIT STEWARD NOTE ON N G TUBE FEEDING ORDERED ,PLACEMENT VERIFIED BY AUSCULTATION OF AIR , KEEP HOB ELEVATED AT ALL TIME , WILL MONITOR
--- NOTE | 2021-10-21 12:19 | NUR ---
tele r n note patient is lethargic unable to remove or pooled all tubes ,will monitor, restrain is removed at this time,will monitor closely
[2021-10-21] MEDS: JEVITY 1.2 CAL 1,000 ML BOTTLE NG PRN (14:56)
[2021-10-21 16:00] VITALS: BP 130/92
--- NOTE | 2021-10-21 16:00 | NUR ---
PROJECTION PRINTER NOTE ROUND MADE ,T 99.6 TYLENOL VIA N G TU BE GIVEN .PLACEMENT VERIFIED BY AUSCULTATION OF AIR, KEEP HOB ELEVATED AT ALL TIME , WILL CONT TO MONITOR
[2021-10-21] MEDS: ACETAMINOPHEN 325 MG TABLET PO PRN (16:24)
--- NOTE | 2021-10-21 17:38 | NUR ---
teletypesetter monitor note patient become more alert , open both eyes and start to speak ,trying to touch n g tube and iv line attempting to remove , placed soft restrain, dr Jitendra Jasmine notified, called son Sundar notified about soft restrain
--- NOTE | 2021-10-21 19:08 | NUR ---
television parts tester note patient in bed ,more awake and alert at this time with soft restrain at this time ,with n g tube feeding as ordered, keep hob elevated at all time , noted t 100.0 ,cooling measure provided, will cont to monitor closely
[2021-10-21 20:00] VITALS: BP 146/46
--- NOTE | 2021-10-21 21:00 | NUR ---
television production technician note Received patient in bed ,more awake and alert at this time on 2 liters of o2 via nc sating 97% no sob no distress noted v/s stable afebrile . on ngt at right nosetrils at 55cm intact and patent . on gt feeding of jevity 1.2 at 50cc/hr , ivf of ns at 75cc/hr infusing well . with bilateral soft wrist restraint to prevent pulling invasive tubing . kept hob elevated at all time , all due meds given as ordered no ase noted .will cont to monitor closely.
[2021-10-22] VITALS: BP 126/81
[2021-10-22 04:00] VITALS: BP 108/45
[2021-10-22] MEDS ORDERED: PANTOPRAZOLE 40 MG TABLET.DR PO SCH (07:30)
--- NOTE | 2021-10-22 07:30 | NUR ---
RN OPENING NOTES RECEIVED PATIENT IN BED SLEEPING, RESPONDS TO VERBAL STIMULI. A/O X1. ON 2L OF O2 VIA NC WITH RESPIRATIONS EVEN AND UNLABORED. L AC G#20 INTACT AND PATENT. RUNNING WITH NS 1L @ 75ML/HR. NG TUBE INTACT AND PATENT VERIFIED PLACEMENT BY AUSCULTATION, NO RESIDUAL NOTED UPON ASPIRATION, RUNNING JEVITY 1.5 @ 50 ML/HR. SAFETY MEASURE PROVIDED. SEIZURE AND ASPIRATION PRECAUTIONS IN PLACE. BED IN LOWEST POSITION, LOCKED. BED ALARM ARMED. WILL CONTINUE TO MONITOR
[2021-10-22 08:00] VITALS: BP 115/52
[2021-10-22] MEDS: VALPROIC ACID 250 MG/5 ML UDC GT SCH ×3 (08:36→20:39)
[2021-10-22] MEDS: risperiDONE 0.25 MG TABLET PO SCH ×2 (08:36→20:38)
[2021-10-22] MEDS: TOPIRAMATE 100 MG TABLET PO SCH ×2 (08:36→20:38)
[2021-10-22] MEDS: RIVASTIGMINE TARTRATE 1.5 MG CAPSULE PO SCH ×2 (08:36→20:38)
[2021-10-22] MEDS: PANTOPRAZOLE 40 MG/PACK PACK GT SCH (08:36)
[2021-10-22 12:00] VITALS: BP 110/53
[2021-10-22] MEDS: ENOXAPARIN SODIUM 40 MG/0.4 ML DISP.SYRIN SQ SCH (12:43)
[2021-10-22] MEDS: JEVITY 1.2 CAL 1,000 ML BOTTLE NG PRN (13:35)
[2021-10-22] MEDS: IV NS 0.9% 1,000 ML IV PRN (13:35)
[2021-10-22 16:00] VITALS: BP 110/54
--- NOTE | 2021-10-22 18:38 | NUR ---
RN NOTES PATIENT WAS SEEN BY DR TIDWELL. AWAKE MOST OF THE DAY WITH NO SEIZURES PRESENTED. SEEN BY SPEECH THERAPIST FOR SWALLOW EVALUATION, PATIENT NOT READY FOR EVALUATION AT THIS TIME, UNABLE TO FOLLOW COMMANDS. NO S/SX OF DISTRESS NOTED THROUGH OUT SHIFT. ON 2L OF O2 VIA NC WITH UNLABORED BREATHING. NG-TUBE IN PLACE AND PATENT. SAFETY, ASPIRATION, AND SEIZURE PRECAUTIONS MAINTAINED. WILL ENDORSE TO THE RUNNING SPECIALIST NURSE FOR KWAME
--- NOTE | 2021-10-22 19:40 | NUR ---
RN NOTE RECEIVED PATIENT IN BED, EYES CLOSED, OPENS EYES TO NAME AND TOUCH. CONFUSED WITH GARBLED SPEECH. BREATHING EVEN AND UNLABORED. ON 2L/MIN VIA NASAL CANNULA. NO S/S OF RESPIRATORY DISTRESS. HOB ELEVATED 35 DEGREES. ON TELE MONITORING, NO S/S OF DISTRESS. SKIN WARM AND DRY. NOTED WITH LEFT AC 20G, INFUSING NS AT 75 CC/HR, NO INFILTRATION. BILATERAL SOFT WRIST RESTRAINTS ARE ON. RELEASED TO PERFORM PASSIVE RANGE OF MOTION. NOTED WITH NGT ON RIGHT NARE, INFUSING JEVITY AT 50 CC/HR. NO RESIDUAL. FEEDING CONTINUED. NO EPISODE OF SEIZURES AT THIS TIME, WILL CONTINUE TO ASSESS. BEDSIDE RAILS PADDED TO PREVENT INJURY. ASSISTED WITH TURNING AND REPOSITIONING. BED LOW, IN LOCKED POSITION, CALL LIGHT WITHIN REACH.
[2021-10-22 20:00] VITALS: BP 125/75
[2021-10-22] MEDS: ACETAMINOPHEN 325 MG TABLET PO PRN (20:17)
--- NOTE | 2021-10-22 20:30 | NUR ---
RN NOTE PATIENT NOTED WITH ELEVATED TEMPERATURE 100.6 F. COOLING MEASURES INITIATED WITH ICE BAGS. WET TOWEL TO FOREHEAD. ADMINISTERED TYLENOL 650 VIA NGT. WILL CONTINUE TO MONITOR.
[2021-10-23] VITALS: BP 116/62
[2021-10-23] MEDS: IV NS 0.9% 1,000 ML IV PRN (02:16)
[2021-10-23 04:00] VITALS: BP 126/78
--- NOTE | 2021-10-23 07:12 | NUR ---
RN OPENING NOTES RECEIVED PATIENT IN BED SLEEPING A/O X1. RESPONDS TO VERBAL STIMULI. ON 2L OF O2 VIA NC WITH RESPIRATIONS EVEN AND UNLABORED. L AC G#20 INTACT AND PATENT. RUNNING WITH NS 1L @ 75ML/HR. NG TUBE INTACT AND PATENT VERIFIED PLACEMENT BY AUSCULTATION, NO RESIDUAL NOTED UPON ASPIRATION, RUNNING JEVITY 1.5 @ 50 ML/HR. SAFETY MEASURE PROVIDED. SEIZURE AND ASPIRATION PRECAUTIONS IN PLACE. BED IN LOWEST POSITION, LOCKED. BED ALARM ARMED. WILL CONTINUE TO MONITOR THROUGHOUT SHIFT.
[2021-10-23 08:00] VITALS: BP 104/46
[2021-10-23] MEDS: TOPIRAMATE 100 MG TABLET PO SCH ×2 (09:04→21:21)
[2021-10-23] MEDS: PANTOPRAZOLE 40 MG/PACK PACK GT SCH (09:05)
[2021-10-23] MEDS: VALPROIC ACID 250 MG/5 ML UDC GT SCH ×3 (09:05→21:20)
[2021-10-23] MEDS: RIVASTIGMINE TARTRATE 1.5 MG CAPSULE PO SCH ×2 (09:05→21:20)
[2021-10-23] MEDS: risperiDONE 0.25 MG TABLET PO SCH ×2 (09:05→21:21)
[2021-10-23] MEDS: ENOXAPARIN SODIUM 40 MG/0.4 ML DISP.SYRIN SQ SCH (11:06)
[2021-10-23 12:00] VITALS: BP 131/76
[2021-10-23 16:00] VITALS: BP 109/59
--- NOTE | 2021-10-23 18:59 | NUR ---
RN CLOSING NOTES PATIENT IN BED SLEEPING A/O X1. RESPONDS TO VERBAL STIMULI. ON 2L OF O2 VIA NC WITH RESPIRATIONS EVEN AND UNLABORED. L AC G#20 INTACT AND PATENT. RUNNING WITH NS 1L @ 75ML/HR. NG TUBE INTACT AND PATENT VERIFIED PLACEMENT BY AUSCULTATION, NO RESIDUAL NOTED UPON ASPIRATION, RUNNING JEVITY 1.5 @ 50 ML/HR. SAFETY MEASURE PROVIDED. SEIZURE AND ASPIRATION PRECAUTIONS IN PLACE. BED IN LOWEST POSITION, LOCKED. BED ALARM ARMED. WILL ENDORSE TO THERAPEUTIC RECREATION ASSISTANT NURSE FOR KWAME.
--- NOTE | 2021-10-23 19:10 | NUR ---
RN NOTES RECEIVED REPORT FROM MORNING RN PATIENT NON VERBAL. WITH NGT PATENT CONNECTED TO TUBE FEEDING JEVITY 1.2 @ 50CC/HR NO GASTRIC RESIDUAL NOTED. WITH IV ACCESS AT L AC # 20 CONNECTED TO CONTINUOS IVF NS@75CC/HR TOLERATING WELL. WITH OXYGEN INHALATION AT 2 LPM SATING 98% TOLERATING WELL NO SOB NOTED AT THIS TIME. WITH BILATERAL SOFT RESTRAINTS IN PLACE AT ALL TIMES. ALL SAFETY MEASURES IN PLACE. HOB ELEVATED AT ALL TIMES. BED ON LOWEST POSITION AND LOCKED. WILL CLOSELY MONITOR THE PATIENT.
[2021-10-23 20:00] VITALS: BP 122/74
[2021-10-24] VITALS: BP 100/55
[2021-10-24 04:00] VITALS: BP 106/70
[2021-10-24] MEDS: IV NS 0.9% 1,000 ML IV PRN ×2 (06:11→19:19)
[2021-10-24 06:15] LABS: BASOPHILS % (AUTO) 0.5 % (0.0-2.0); EOSINOPHILS % (AUTO) 2.9 % (0.0-6.0); HEMATOCRIT 32 % (33-45); HEMOGLOBIN 10.8 g/dL (11.5-14.8); LYMPHOCYTES # (AUTO) 1.4 K/uL (0.8-4.8); LYMPHOCYTES % (AUTO) 34.6 % (20.0-44.0); MEAN CORPUSCULAR HGB CONC 33 g/dl (31.0-36.0); MEAN CORPUSCULAR VOLUME 99 fL (82-100); MONOCYTES # (AUTO) 0.4 K/uL (0.1-1.30); MONOCYTES % (AUTO) 8.8 % (2.0-12.0); NEUTROPHILS # (AUTO) 2.1 K/uL (1.8-8.9); NEUTROPHILS % (AUTO) 53.2 % (43.0-81.0); PLATELET COUNT (AUTO) 220 K/uL (150-450); RED BLOOD CELL COUNT(AUTO) 3.27 MIL/uL (4.0-5.2)
[2021-10-24 06:44] LABS: CALCIUM, SERUM 8.6 mg/dL (8.5-10.1); CREATININE 0.6 mg/dL (0.6-1.3); MAGNESIUM 2.2 mg/dL (1.8-2.4); PHOSPHORUS 3.9 mg/dL (2.5-4.9); POTASSIUM 3.9 mmol/L (3.5-5.1)
--- NOTE | 2021-10-24 07:04 | NUR ---
RN NOTES PATIENT IN BED NO SIGNIFICANT CHANGES IN HEALTH CONDITION THIS SHIFT. ALL DUE MEDS GIVEN ORDERED. STILL WITH NGT PATENT CONNECTED TO CONTINUOS FEEDING. IV ACCES PATENT FLUSHES WELL CONNECTED TO CONNECTED TO CONTINUOS IVF 75CC/HR. ALL DUE MEDS GIVEN ORDERED NO SOB NO DISTRESS NO SEIZURE NOTED AT THIS TIME. ALL NEEDS ATTENDED. KEPT CLEAN AND DRY AT ALL TIMES. ALL SAFETY MEASURES IN PLACE AT ALL TIMES. BED ON LOWEST POSITION AND LOCKED. HOB ELEVATED. WILL ENDORSED TO MORNING SHIFT FOR KWAME
--- NOTE | 2021-10-24 07:30 | NUR ---
RN OPENING NOTE PATIENT IS IN BED, ON SEMI HIGGINBOTHAM'S POSITION, AOX1, NON VERBAL. ON O2 VIA NASAL CANNULA AT 2L/MIN. WITH NGT CONNECTED TO TUBE FEEDING AT 50 CC/HR. ON TOWER HELPER SHOWING SINUS RHYTHM AT 75 BPM,. PATIENT IS ON SOFT WRIST RESTRAINTS. WITH LEFT ARM IV GAUGE 20 INFUSING WITH NSS AT 75 ML/HR. DENIES PAIN AND NOT IN ACUTE RESPIRATORY DISTRESS. BED IS LOCKED IN LOWEST POSITION, 3 GUARD RAILS RAISED, CALL [place] WITHIN REACH, AND ALL HOSPITAL SAFETY PRECAUTIONS ARE IN PLACE. WILL CONTINUE TO MONITOR THROUGHOUT SHIFT.
[2021-10-24 08:00] VITALS: BP 121/75
[2021-10-24] MEDS: RIVASTIGMINE TARTRATE 1.5 MG CAPSULE PO SCH ×2 (09:26→20:12)
[2021-10-24] MEDS: TOPIRAMATE 100 MG TABLET PO SCH ×2 (09:27→20:14)
[2021-10-24] MEDS: risperiDONE 0.25 MG TABLET PO SCH ×2 (09:27→20:14)
[2021-10-24] MEDS: VALPROIC ACID 250 MG/5 ML UDC GT SCH ×3 (09:27→20:13)
[2021-10-24] MEDS: PANTOPRAZOLE 40 MG/PACK PACK GT SCH (09:28)
[2021-10-24] MEDS: ENOXAPARIN SODIUM 40 MG/0.4 ML DISP.SYRIN SQ SCH (10:57)
[2021-10-24 12:08] VITALS: BP 125/60
[2021-10-24 16:00] VITALS: BP 129/61
[2021-10-24] MEDS: JEVITY 1.2 CAL 1,000 ML BOTTLE NG PRN (16:08)
--- NOTE | 2021-10-24 18:39 | NUR ---
RN CLOSING NOTE PATIENT IS IN BED, ON SEMI HIGGINBOTHAM'S POSITION, AOX1, NON VERBAL. ON O2 VIA NASAL CANNULA AT 2L/MIN. WITH NGT CONNECTED TO TUBE FEEDING AT 50 CC/HR. ON ELECTRONICS DESIGN ENGINEER SHOWING SINUS RHYTHM AT 65 BPM,. PATIENT IS ON SOFT WRIST RESTRAINTS. WITH LEFT ARM IV GAUGE 20 INFUSING WITH NSS AT 75 ML/HR, INTACT. DENIES PAIN AND NOT IN ACUTE RESPIRATORY DISTRESS. BED IS LOCKED IN LOWEST POSITION, 3 GUARD RAILS RAISED, CALL [place] WITHIN REACH, AND ALL HOSPITAL SAFETY PRECAUTIONS ARE IN PLACE. ALL DUE MEDICATIONS GIVEN AND PATIENT REMAINED STABLE THROUGHOUT SHIFT. WILL ENDORSE TO PLODDING MACHINE OPERATOR NURSE.
--- NOTE | 2021-10-24 19:30 | NUR ---
RN OPENING NOTE RECEIVED PATIENT IN BED, ON SEMI HIGGINBOTHAM'S POSITION, AOX1, NON VERBAL. ON O2 VIA NASAL CANNULA AT 2L/MIN. WITH NGT CONNECTED TO TUBE FEEDING AT 50 CC/HR. ON SCOOP MACHINE OPERATOR SHOWING SINUS RHYTHM, PATIENT IS ON BILATERAL SOFT WRIST RESTRAINTS. WITH LEFT ARM IV GAUGE 20 INFUSING WITH NSS AT 75 ML/HR. DENIES PAIN AND NOT IN ACUTE RESPIRATORY DISTRESS. BED IS LOCKED IN LOWEST POSITION, SIDERAILS UP X3, CALL LIGHT WITHIN REACH, WILL CONTINUE TO MONITOR CLOSELY.
[2021-10-24 20:00] VITALS: BP 146/62
--- NOTE | 2021-10-24 20:45 | NUR ---
RN NOTE DUE MEDS GIVEN
[2021-10-25] VITALS: BP 136/59
[2021-10-25 04:00] VITALS: BP 118/62
[2021-10-25 06:44] LABS: BASOPHILS % (AUTO) 0.8 % (0.0-2.0); EOSINOPHILS % (AUTO) 1.9 % (0.0-6.0); HEMATOCRIT 34 % (33-45); HEMOGLOBIN 11.1 g/dL (11.5-14.8); LYMPHOCYTES # (AUTO) 1.5 K/uL (0.8-4.8); MEAN CORPUSCULAR HGB CONC 33 g/dl (31.0-36.0); MEAN CORPUSCULAR VOLUME 99 fL (82-100); MONOCYTES # (AUTO) 0.4 K/uL (0.1-1.30); MONOCYTES % (AUTO) 9.4 % (2.0-12.0); NEUTROPHILS # (AUTO) 2.5 K/uL (1.8-8.9); NEUTROPHILS % (AUTO) 54.9 % (43.0-81.0); PLATELET COUNT (AUTO) 249 K/uL (150-450); RED BLOOD CELL COUNT(AUTO) 3.39 MIL/uL (4.0-5.2); WHITE BLOOD COUNT (AUTO) 4.5 K/uL (4.3-11.0)
--- NOTE | 2021-10-25 07:09 | NUR ---
RN CLOSING NOTE PATIENT IN BED SLEEPING A/O X1. RESPONDS TO VERBAL STIMULI. ON 2L OF O2 VIA NC WITH RESPIRATIONS EVEN AND UNLABORED. L AC G#20 INTACT AND PATENT. RUNNING WITH NS 1L @ 75ML/HR. NG TUBE INTACT AND PATENT RUNNING JEVITY 1.5 @ 50 ML/HR. SAFETY MEASURES PROVIDED. SEIZURE AND ASPIRATION PRECAUTIONS IN PLACE. ALL DUE MEDS GIVEN, BED IN LOWEST POSITION, LOCKED. BED ALARM ARMED. WILL ENDORSE TO THE DAY SHIFT NURSE.
[2021-10-25 07:29] LABS: CREATININE 0.7 mg/dL (0.6-1.3); MAGNESIUM 2.3 mg/dL (1.8-2.4); PHOSPHORUS 3.9 mg/dL (2.5-4.9); POTASSIUM 4.2 mmol/L (3.5-5.1)
--- NOTE | 2021-10-25 07:47 | NUR ---
RN OPENING NOTE PATIENT IS IN BED, ON SEMI HIGGINBOTHAM'S POSITION, AOX1, NON VERBAL. ON O2 VIA NASAL CANNULA AT 2L/MIN. WITH NGT CONNECTED TO TUBE FEEDING AT 50 CC/HR. ON OFFICE EXECUTIVE SHOWING SINUS RHYTHM AT 77 BPM,. PATIENT IS ON SOFT WRIST RESTRAINTS. WITH LEFT ARM IV GAUGE 20 INFUSING WITH NSS AT 75 ML/HR. PATIENT IS NOT IN ACUTE DISTRESS. BED IS LOCKED IN LOWEST POSITION, 3 GUARD RAILS RAISED, CALL [place] WITHIN REACH, AND ALL HOSPITAL SAFETY PRECAUTIONS ARE IN PLACE. WILL CONTINUE TO MONITOR THROUGHOUT SHIFT.
[2021-10-25 08:00] VITALS: BP 108/55
[2021-10-25] MEDS: IV NS 0.9% 1,000 ML IV PRN (08:04)
[2021-10-25] MEDS: RIVASTIGMINE TARTRATE 1.5 MG CAPSULE PO SCH ×2 (08:30→21:58)
[2021-10-25] MEDS: TOPIRAMATE 100 MG TABLET PO SCH ×2 (08:30→21:58)
[2021-10-25] MEDS: PANTOPRAZOLE 40 MG/PACK PACK GT SCH (08:31)
[2021-10-25] MEDS: VALPROIC ACID 250 MG/5 ML UDC GT SCH ×3 (08:31→21:58)
[2021-10-25] MEDS: risperiDONE 0.25 MG TABLET PO SCH ×2 (08:31→21:58)
--- NOTE | 2021-10-25 09:40 | NUR ---
RN NOTE BRADYCARDIA AT 39 BPM OCCURRED FOR LESS THAN [address] TIDWELL INFORMED. CURRENT HR IS AT 70 BPM. WILL CONTINUE TO MONITOR.
[2021-10-25 12:00] VITALS: BP 131/48
[2021-10-25] MEDS: ENOXAPARIN SODIUM 40 MG/0.4 ML DISP.SYRIN SQ SCH (12:15)
[2021-10-25] MEDS ORDERED: ANESTHESIA TRAY IN PYXIS 1 EA TRAY MC ONE (14:44)
[2021-10-25 16:00] VITALS: BP 132/91
--- NOTE | 2021-10-25 19:01 | NUR ---
RN CLOSING NOTE PATIENT CURRENTLY AT OR FOR PEG INSERTION. WILL ENDORSE TO LINING SETTER NURSE.
--- NOTE | 2021-10-25 19:45 | NUR ---
RN OPENING NOTES: PT CAME BACK FROM OR AFTER GTUBE PLACEMENT. RECEIVED REPORT FROM NIDIA DIEGO AT BEDSIDE. PT AWAKE, A/O X1, EPISODES OF TALKING TO HERSELF. ON 2L/MIN VIA N/C, O2 SAT 100% AND PT TOLERATED WELL. IV ACCESS LAC#20G INTACT AND PATENT. NO S/S OF INFILTRATIONS. RUNNING NS 75CC/HR. NO FACIAL GRIMACING NOTED. NO ACUTE DISTRESS. GTUBE INTACT AND PATENT. PER OR NURSE WILL START FEEDING IN THE MORNING. GTUBE SITE NOTED WITH SCANT AMOUNT OF BLEEDING. APPLIED DRESSING. ALL SAFETY MEASURES IN PLACE. SIDE RAILS UP X3, PLACE CALL LIGHT WITH IN REACH. BED IN LOWEST POSITION AND LOCKED. WILL CONTINUE TO MONITOR
[2021-10-25 20:00] VITALS: BP 138/74
--- NOTE | 2021-10-25 20:45 | NUR ---
RN NOTES: NOTIFIED DR. ROMO, IF IT'S OKAY TO ADMINISTER THE ROUTINE MEDS NOW. HE AGREED. WILL ADMINISTER HER ROUTINE MEDS ORDER. WILL CONTINUE TO MONITOR
[2021-10-26] VITALS: BP 109/58
[2021-10-26 04:00] VITALS: BP 100/45
[2021-10-26] MEDS: ACETAMINOPHEN 325 MG TABLET PO PRN (05:02)
[2021-10-26 06:33] LABS: CALCIUM, SERUM 8.4 mg/dL (8.5-10.1); CREATININE 0.7 mg/dL (0.6-1.3); PHOSPHORUS 3.6 mg/dL (2.5-4.9); POTASSIUM 4.2 mmol/L (3.5-5.1)
[2021-10-26 06:46] LABS: BASOPHILS % (AUTO) 0.4 % (0.0-2.0); EOSINOPHILS % (AUTO) 0.3 % (0.0-6.0); HEMATOCRIT 34 % (33-45); HEMOGLOBIN 11.5 g/dL (11.5-14.8); LYMPHOCYTES # (AUTO) 1.9 K/uL (0.8-4.8); LYMPHOCYTES % (AUTO) 22.9 % (20.0-44.0); MEAN CORPUSCULAR HGB CONC 34 g/dl (31.0-36.0); MEAN CORPUSCULAR VOLUME 99 fL (82-100); MONOCYTES # (AUTO) 0.6 K/uL (0.1-1.30); NEUTROPHILS # (AUTO) 5.6 K/uL (1.8-8.9); NEUTROPHILS % (AUTO) 68.4 % (43.0-81.0); PLATELET COUNT (AUTO) 238 K/uL (150-450); RED BLOOD CELL COUNT(AUTO) 3.45 MIL/uL (4.0-5.2); WHITE BLOOD COUNT (AUTO) 8.1 K/uL (4.3-11.0)
--- NOTE | 2021-10-26 06:47 | NUR ---
RN CLOSING NOTES: RECIVED PT IN BED SLEEPING, BUT AROUSABLE, A/O X1, EPISODES OF TALKING TO HERSELF. ON 2L/MIN VIA N/C AND PT TOLERATED WELL. O2 SAT 100%. IV ACCESS LAC#20G AND RAC#22G INTACT AND PATENT. NO S/S OF INFILTRATIONS. RUNNING NS 75CC/HR. NO FACIAL GRIMACING NOTED. NO ACUTE DISTRESS. GTUBE SITE INTACT AND PATENT AND COVERED WITH DRY DRESSING. GTUBE WILL START AM SHIFT. ALL DUE MEDS GIVEN ORDER. . ALL SAFETY MEASURES IN PLACE. SIDE RAILS UP X3, PLACE CALL LIGHT WITH IN REACH. BED IN LOWEST POSITION AND LOCKED. WILLENDORSE TO MORNING SHIFT NURSE.
[2021-10-26] MEDS: IV NS 0.9% 1,000 ML IV PRN (07:06)
--- NOTE | 2021-10-26 07:30 | NUR ---
RN OPENING NOTES, RECEIVED PATIENT FROM PRAMOD JACOB FOR CONTINUATION OF CARE, PATIENT A/O TO SELF UNABLE TO COMMUNICATE, AT 2LPM VIA NC WITH OPTIMAL O2 SAT LEVEL, S/P GT PLACEMENT YESTERDAY, WILL START GT FEEDING THIS MORNING, WITH DC PLANNING TODAY TO [facility], DRY AND CLEAN, BED LOCKED AND IN LOWEST POSITION, BILATERAL S/R OF BED UP, CALL LIGHT W/I REACH, WILL CONTINUE TO MONITOR CLOSELY.
[2021-10-26] MEDS: JEVITY 1.2 CAL 1,000 ML BOTTLE NG PRN (07:53)
[2021-10-26 08:00] VITALS: BP 127/87
[2021-10-26] MEDS ORDERED: JEVITY 1.2 CAL 1,000 ML BOTTLE GT PRN (08:00)
[2021-10-26] MEDS: PANTOPRAZOLE 40 MG/PACK PACK GT SCH (08:59)
[2021-10-26] MEDS: VALPROIC ACID 250 MG/5 ML UDC GT SCH ×2 (08:59→12:22)
[2021-10-26] MEDS: TOPIRAMATE 100 MG TABLET PO SCH (08:59)
[2021-10-26] MEDS: RIVASTIGMINE TARTRATE 1.5 MG CAPSULE PO SCH (08:59)
[2021-10-26] MEDS: risperiDONE 0.25 MG TABLET PO SCH (08:59)
[2021-10-26 10:29] VITALS: BP 127/87
--- NOTE | 2021-10-26 10:54 | NUR ---
REPORT GIVEN TO LIAT FROM [facility] AT [phone], [facility] WILL SOFTWARE TRAINER PATIENT AT 1300.
[2021-10-26 12:00] VITALS: BP 124/52
[2021-10-26] MEDS: ENOXAPARIN SODIUM 40 MG/0.4 ML DISP.SYRIN SQ SCH (12:23)
--- NOTE | 2021-10-26 12:26 | NUR ---
urine specimen obtained via straight cath and send to lab ,awaits result.
[2021-10-26 12:45] LABS: BILIRUBIN,URINE NEGATIVE (NEGATIVE); LEUKOCYTE ESTERASE ,URINE NEGATIVE (NEGATIVE); NITRITE, URINE NEGATIVE (NEGATIVE); PH,URINE 7.5 (5.0-8.0); PROTEIN,URINE NEGATIVE (NEGATIVE); UGLUCOSE NEGATIVE (NEGATIVE); UROBILINOGEN,URINE 0.2 EU/dL (0.2)
[2021-10-26 12:47] LABS: COLOR,URINE LIGHT YELLOW (YELLOW)
--- NOTE | 2021-10-26 13:44 | NUR ---
DISCHARGE NOTES, PATIENT LEFT AT THIS TIME VIA GURNEY IN STABLE CONDITION ACCOMPANIED BY 3EMTS, VITAL SIGNS STABLE AT THIS TIME ON ROOM AIR TOLERATED WELL, NO SOB/ACUTE DISTRESS NOTED, NO BELONGING IN CHART, REPORT GIVEN TO YECENIA AND AWARE PATIENT IS TGRANFERRED AT THIS TIME, DC IV LINES, DC TELE MONITOR.
== END 2021-10-26 13:51 | DRG 100 ==
LOC: ER 07:52 → TRANSITION 09:52 → TELE1 10:46 → MEDSG1 10-26 12:42
PROVIDERS: ADMIT Nurse Practitioner Acute Care; ATTEND Nurse Practitioner Family
PROC: 0DH63UZ Insertion of Feeding Device into Stomach, Percutaneous Approach (ICD-10-PCS; principal; 2021-10-25)
DX: G40.901 Epilepsy, unspecified, not intractable, with status epilepticus (principal); G93.41 Metabolic encephalopathy; F03.90 Unspecified dementia, unspecified severity, without behavioral disturbance, psychotic disturbance, mood disturbance, and anxiety; E11.9 Type 2 diabetes mellitus without complications; Z20.822 Contact with and (suspected) exposure to COVID-19; K29.70 Gastritis, unspecified, without bleeding; E78.5 Hyperlipidemia, unspecified; D64.9 Anemia, unspecified; Z87.440 Personal history of urinary (tract) infections; F29 Unspecified psychosis not due to a substance or known physiological condition; Z79.84 Long term (current) use of oral hypoglycemic drugs; Z79.899 Other long term (current) drug therapy; D72.819 Decreased white blood cell count, unspecified; R13.10 Dysphagia, unspecified; F31.9 Bipolar disorder, unspecified
CPT/HCPCS: 36415; 43246; 70450-TC; 71045-TC; 80048-TC; 80053-TC; 80061-TC; 80076-TC; 80164-TC; 81001; 82140-TC; 82962-TC; 83735-TC; 84100-TC; 84443-TC; 84484-TC; 85025-TC; 85730-TC; 95819-TC; C9113; G0378; G0480; J0690; J1650; J2060; J2704; J3490; J7030; J7060

== ENCOUNTER 2021-11-24 16:38 | Inpatient (IN) | payer MEDICARE, OTHER ==
[~2021-11-24] VITALS: Ht 162.6 cm; Wt 56.7 kg
[~2021-11-24 16:38] MED LIST changes: +ACET-868 GT; +GLUC1KIT IM; +RIVA1.5C13 GT; -RIVA1.5C13 PO; -SULF1TAB48 PO; +TOPI100T GT
--- NOTE | 2021-11-24 16:41 | NUR ---
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 SEIZURE PRECAUTION APPLIED. DR REYNOLDS AT BEDSIDE VERBAL ORDER FOR 2MG ATIVAN IV GIVEN. ATTACHED TO MONITOR, VITALS ARE WITHIN NORMAL LIMITS. AWAITING ORDERS.
[2021-11-24] MEDS ORDERED: LORAZEPAM INJ 2 MG/ML VIAL ONE (16:46)
--- NOTE | 2021-11-24 17:06 | NUR ---
MOVE SHEET SUBMITTED.
[2021-11-24 17:28] LABS: BASOPHILS % (AUTO) 0.5 % (0.0-2.0); HEMATOCRIT 41 % (33-45); HEMOGLOBIN 13.6 g/dL (11.5-14.8); LYMPHOCYTES # (AUTO) 0.8 K/uL (0.8-4.8); LYMPHOCYTES % (AUTO) 11.4 % (20.0-44.0); MEAN CORPUSCULAR HGB CONC 33 g/dl (31.0-36.0); MEAN CORPUSCULAR VOLUME 100 fL (82-100); MONOCYTES # (AUTO) 0.2 K/uL (0.1-1.30); MONOCYTES % (AUTO) 2.7 % (2.0-12.0); NEUTROPHILS # (AUTO) 5.7 K/uL (1.8-8.9); NEUTROPHILS % (AUTO) 85.4 % (43.0-81.0); PLATELET COUNT (AUTO) 162 K/uL (150-450); WHITE BLOOD COUNT (AUTO) 6.7 K/uL (4.3-11.0)
[2021-11-24 17:29] LABS: ALANINE AMINOTRANSFERASE 17 U/L (12-78); ALBUMIN 3.4 g/dL (3.4-5.0); ALCOHOL, BLOOD < 3 mg/dL (0-0); ALKALINE PHOSPHATASE 68 U/L (46-116); ASPARTATE AMINOTRANSFERASE 14 U/L (15-37); BILIRUBIN,DIRECT 0.1 mg/dL (0.0-0.2); BILIRUBIN,TOTAL 0.2 mg/dL (0.2-1.0); CALCIUM, SERUM 8.8 mg/dL (8.5-10.1); CARBON DIOXIDE 23 mmol/L (21-32); CHLORIDE 109 mmol/L (98-107); CREATININE 0.8 mg/dL (0.6-1.3); GLUCOSE 146 mg/dL (74-106); POTASSIUM 4.1 mmol/L (3.5-5.1); SODIUM SERUM 146 mmol/L (136-145); TOTAL PROTEIN, SERUM 7.6 g/dL (6.4-8.2); UREA NITROGEN, BLOOD 16 mg/dL (7-18)
--- NOTE | 2021-11-24 17:31 | NUR ---
X RAY AT BEDSIDE
--- NOTE | 2021-11-24 17:33 | NUR ---
16FR JIMENEZ CATHETER PLACED 50CC OUTPUT, URINE COLLECTED AND SENT.
--- NOTE | 2021-11-24 17:39 | NUR ---
COVID TEST COLLECTED AND SENT
--- NOTE | 2021-11-24 17:43 | NUR ---
PT TAKEN TO CT VIA RENATO
--- NOTE | 2021-11-24 17:44 | NUR ---
HILDA NAVARRO, DAUGHTER IN LAW [phone]
--- NOTE | 2021-11-24 18:25 | NUR ---
[facility] CALLED CRIME LABORATORY ANALYST PAGED.
[2021-11-24] MEDS ORDERED: PANT40SU2 GT (18:30)
[2021-11-24] MEDS ORDERED: MAGN400O6 GT (18:30)
[2021-11-24] MEDS ORDERED: POLY17PO4 GT (18:30)
[2021-11-24] MEDS ORDERED: ACET-2605 GT (18:30)
[2021-11-24] MEDS ORDERED: NUT.237L31 GT (18:30)
[2021-11-24] MEDS ORDERED: VALP250S4 GT ×2 (18:30)
--- NOTE | 2021-11-24 18:31 | NUR ---
GOT BED 306-1
[2021-11-24] MEDS ORDERED: ALLA266C2 TP (18:32)
[2021-11-24] MEDS ORDERED: MAGNESIUM HYDROXIDE 30 ML UDC PO PRN (19:30)
[2021-11-24] MEDS ORDERED: POLYETHYLENE GLYCOL 3350 17 GM POWD.PACK GT PRN (19:30)
[2021-11-24] MEDS ORDERED: ONDANSETRON HCL/PF 4 MG/2 ML VIAL IVP PRN (19:30)
[2021-11-24] MEDS ORDERED: MAGNESIUM HYDROXIDE 30 ML UDC GT PRN (19:30)
[2021-11-24] MEDS ORDERED: Z GUARD REMEDY 4 OZ OINT TP PRN (19:30)
[2021-11-24] MEDS ORDERED: MAG HYDROX/AL HYDROX/SIMETH 30 ML UDC PO PRN (19:30)
--- NOTE | 2021-11-24 19:45 | NUR ---
REPORT GIVEN TO LATRICE FOR KWAME
[2021-11-24] MEDS ORDERED: LORAZEPAM INJ 2 MG/ML VIAL IV ONE (20:00)
[2021-11-24 20:25] VITALS: BP 122/74
--- NOTE | 2021-11-24 20:31 | NUR ---
PATIENT TRANSFERRED TO 306 VIA ACLS
--- NOTE | 2021-11-24 20:35 | NUR ---
RN ADMITTING NOTE PATIENT ADMITTED FROM ER FOR SEIZURES. PATIENT IS AO X 0 AT THIS TIME, ONLY WAKES UP WITH PAINFUL STIMULI. PATIENT IS ON 2 LPM, SATTING 99% NO SOB NOTED. PATIENT'S TELE MONITOR READS SR 110 BPM. PATIENT HAS A JIMENEZ CATHETER IN PLACE DRAINING YELLOW URINE. G TUBE PATENT AND INTACT, IN APPROPRIATE PLACE, AUSCULTATED, ASPIRATED, NO RESIDUAL. PATIENT HAS A LAC 20 G PATENT AND INTACT, FLUSHING WELL. PATIENT HAS SACRAL REDNESS/DISCOLORATION, PHOTOS TAKEN. PATIENT DID NOT COME WITH ANY BELONGINGS, SAFETY MEASURES IN PLACE: BED LOCKED AND IN LOWEST POSITION, CALL LIGHT WITHIN REACH, SIDE RAILS UP, SEIZURE PRECAUTIONS IN PLACE. WILL MONITOR PATIENT CLOSELY.
[2021-11-24] MEDS: IV NS 0.9% 1,000 ML IV PRN (20:59)
[2021-11-24] MEDS ORDERED: GLUCERNA 1.5 1,000 ML BOTTLE GT SCH (21:00)
--- NOTE | 2021-11-24 21:00 | NUR ---
RN NOTE CALLED [facility] TO OBTAIN IMMUNIZATION INFO AND OTHER INFO FOR ADMISSION. PER NURSING BUSINESS REPORTING DEVELOPER. PER SNF, PATIENT HAS A POLST THAT STATES FULL CODE, WILL FAX POLST TO US. PATIENT'S COVID VACCINES RECEIVED, AND PNEUMONIA RECEIVED FEB 2021, FLU JUN 2021.
[2021-11-24] MEDS: VALPROIC ACID 250 MG/5 ML UDC GT SCH (22:12)
[2021-11-24] MEDS: RIVASTIGMINE TARTRATE 1.5 MG CAPSULE GT SCH (22:12)
[2021-11-24] MEDS: TOPIRAMATE 100 MG TABLET GT SCH (22:12)
[2021-11-24] MEDS ORDERED: GLUCERNA 1.2 1,000 ML BOTTLE GT SCH (22:30)
--- NOTE | 2021-11-24 22:35 | NUR ---
RN NOTE PER NUSING COMMUNITY HEALTH PLANNING DIRECTOR, WE DONT CARRY GLUCERNA 1.5, REPLACED ORDER WITH GLUCERNA 1.2 AND PUT PATIENT ON MODERATE SS ACHS. BS 122 MG/DL, NO COVERAGE GIVEN. PATIENT GIVEN TF 237 ML BOLUS.
[2021-11-24] MEDS ORDERED: DEXTROSE 50%-WATER 50 ML DISP.SYRIN IV PRN (23:00)
[2021-11-24] MEDS ORDERED: *INSULIN REGULAR(HUMULIN R)HUM 100 UNIT/ML VIAL SQ PRN (23:00)
[2021-11-24] MEDS ORDERED: INSULIN REGULAR, HUMAN 100 UNIT/ML 3 ML VIAL SQ PRN (23:00)
[2021-11-25] VITALS: BP 121/66
[2021-11-25 04:00] VITALS: BP 118/78
[2021-11-25 05:58] LABS: BASOPHILS # (AUTO) 0.1 K/uL (0.0-0.2); BASOPHILS % (AUTO) 0.6 % (0.0-2.0); HEMATOCRIT 40 % (33-45); HEMOGLOBIN 13.4 g/dL (11.5-14.8); LYMPHOCYTES # (AUTO) 2.1 K/uL (0.8-4.8); LYMPHOCYTES % (AUTO) 19.7 % (20.0-44.0); MEAN CORPUSCULAR HGB CONC 34 g/dl (31.0-36.0); MEAN CORPUSCULAR VOLUME 100 fL (82-100); MONOCYTES # (AUTO) 1.1 K/uL (0.1-1.30); MONOCYTES % (AUTO) 10.2 % (2.0-12.0); NEUTROPHILS # (AUTO) 7.4 K/uL (1.8-8.9); NEUTROPHILS % (AUTO) 69.5 % (43.0-81.0); PLATELET COUNT (AUTO) 172 K/uL (150-450); RED BLOOD CELL COUNT(AUTO) 4.02 MIL/uL (4.0-5.2); WHITE BLOOD COUNT (AUTO) 10.6 K/uL (4.3-11.0)
[2021-11-25 06:02] LABS: ALBUMIN 3.1 g/dL (3.4-5.0); BILIRUBIN,TOTAL 0.2 mg/dL (0.2-1.0)
[2021-11-25 06:11] LABS: THYROID STIMULATING HORMONE 0.733 uIU/mL (0.358-3.74)
[2021-11-25 06:14] LABS: CALCIUM, SERUM 8.9 mg/dL (8.5-10.1); CREATININE 0.7 mg/dL (0.6-1.3); POTASSIUM 3.8 mmol/L (3.5-5.1)
--- NOTE | 2021-11-25 06:42 | NUR ---
RN CLOSING NOTE PATIENT IN BED, EYES CLOSED. PATIENT STILL NONVERBAL AT THIS TIME D/T MENTAL STATUS AND LETHARGIC, PER PATIENT'S SON, PATIENT CAN ANSWER YES OR NO. PATIENT DID NOT HAVE ANY SEIZURES DURING THE SHIFT. PATIENT REMAINS ON 2LPM, TOLERATING WELL NO SOB. PATIENT HAS A JIMENEZ CATHETER IN PLACE DRAINING VIA GRAVITY. GTUBE STILL PATENT AND INTACT, TOLERATED BOLUS FEEDING NO RESIDUAL. TELE MONITOR READS 93 BPM SR. BS 111, NO COVERAGE GIVEN. SAFETY MEASURES IMPLEMENTED. SEIZURE PRECAUTIONS MAINTAINED. ALL NEEDS MET AND ATTENDED. ALL ORDERS CARRIED OUT.
[2021-11-25 08:00] VITALS: BP 106/72
--- NOTE | 2021-11-25 08:01 | NUR ---
RN OPENING NOTE PATIENT RECEIVED IN BED, LETHARGIC. ABLE TO RESPONDS PHYSICAL STIMULI. IN NO ACUTE DISTRESS NOTED. RESPIRATORY EVEN AND UNLABORED ON OXYGEN AT 2Ls VIA NC. SKIN IS WARM TO TOUCH, KEEP CLEAN/DRY. KEPT ELEVATED HOB FOR ENSURE AIRWAY AND ASPIRATION PRECAUTION, ALSO LOWEST POSITION OF THE BED, S/R UP X 3, BED ALARM IS ON AT ALL THE TIMES. ALL SAFETY PRECAUTION APPLIED. CALL LIGHT WITHIN REACH, WILL CONTINUE TO MONITOR.
[2021-11-25] MEDS ORDERED: GLUCERNA SHAKE 237 ML CAN GT SCH (09:00)
[2021-11-25] MEDS: BLOOD SUGAR DIAGNOSTIC 1 EACH STRIP VI SCH ×4 (09:02→21:50)
[2021-11-25] MEDS: RIVASTIGMINE TARTRATE 1.5 MG CAPSULE GT SCH ×2 (09:05→20:14)
[2021-11-25] MEDS: VALPROIC ACID 250 MG/5 ML UDC GT SCH ×3 (09:06→20:15)
[2021-11-25] MEDS: PANTOPRAZOLE 40 MG/PACK PACK GT SCH (09:06)
[2021-11-25] MEDS: TOPIRAMATE 100 MG TABLET GT SCH ×2 (09:06→20:15)
--- NOTE | 2021-11-25 09:16 | NUR ---
WOUND CARE CONSULT: PT PRESENTS WITH SACRAL SCARRING AND INTACT DEEP TISSUE INJURY WELL SCARRING TO FEET AND ANKLES, PRESENT ON ADMISSION. RECOMMENDATIONS MADE FOR SKIN PROTECTION. DISCUSSED [facility] NURSING STAFF. MD IN AGREEMENT WITH PLAN OF CARE. JIMENEZ CATH NOTED.
[2021-11-25] MEDS: IV NS 0.9% 1,000 ML IV PRN (10:16)
[2021-11-25] MEDS: GLUCERNA 1.2 1,000 ML BOTTLE PEG PRN (10:16)
[2021-11-25 12:00] VITALS: BP 118/60
--- NOTE | 2021-11-25 16:12 | NUR ---
PATIENT NOTED 2 SECOND PAUSES HR DROPPED TO 35, THEN BACK UP TO NORMAL HR 60'S AFTER A MINUTE. INFORMED DR. CABRERA REGARDING ABOVE, NO NEW ORDER AT THIS TIME. WILL CONTINUE TO MONITOR.
[2021-11-25 16:14] VITALS: BP 111/60
--- NOTE | 2021-11-25 17:43 | NUR ---
PATIENT NOTED CLOUDY URINE WITH ODOR, MD MADE AWARE AND PLACED ORDER UA/C&S. WILL CONTINUE TO MONITOR.
--- NOTE | 2021-11-25 18:56 | NUR ---
RN CLOSING PATIENT IN BED, SLEEPING COMFORTABLY. IN NO ACUTE DISTRESS OBSERVED. SKIN IS WARM TO TOUCH KEEP CLEAN/DRY, PATIENT TOLERATED TUBE FEEDING GLUCERNA 1.2 AT 55 ML/HR, NO RESIDUAL NOTED. RESPIRATORY EVEN AND UNLABORED ON OXYGEN AT 2Ls VIA NC. KEPT ELEVATED HOB FOR ASPIRATION PRECAUTION AND ENSURE AIRWAY. LOWEST POSITION OF THE BED FOR SAFETY. BED ALARM IS ON AT ALL THE TIME. ALL SAFETY PRECAUTION APPLIED. WILL ENDORSE TO PIER MASTER.
[2021-11-25 20:00] VITALS: BP 114/62
--- NOTE | 2021-11-25 20:04 | NUR ---
RN NOTE PATIENT HANDED TO ME LAST MINUTE ASSIGNED NURSE DID NOT SHOW. PATIENT HAS AN INCREASE DROP FROM 3SECS IN THE DAY TIME TO 5 SECS CURRENTLY OF SR 60S DROPS TO [address] GILL NOTIFIED. PATIENT ALSO CURRENTLY HAS A TEMP 101.5. WILL INITIATE PROTOCOL: TYLENOL, ICE PACKS, REMOVAL OF SHEETS, AND AC TURNED ON. CURRENTLY AWAITING ANY NEW ORDERS FROM .
[2021-11-25] MEDS: ACETAMINOPHEN 325 MG TABLET PO PRN (20:14)
[2021-11-25 21:00] LABS: COLOR,URINE YELLOW (YELLOW)
--- NOTE | 2021-11-25 21:00 | NUR ---
RN NOTE DR. GILL RESPONDED: CONTINUE TO MONITOR PATIENT, F/U W/ DR. CABRERA IN A.M., NO NEW ORDERS AT THIS TIME. PATIENT REMAINS STABLE; WILL CONTINUE TO MONITOR PATIENT.
[2021-11-25 21:01] LABS: PH,URINE 8.5 (5.0-8.0)
[2021-11-25 21:02] LABS: BILIRUBIN,URINE NEGATIVE (NEGATIVE); UGLUCOSE NEGATIVE (NEGATIVE)
[2021-11-25 21:03] LABS: LEUKOCYTE ESTERASE ,URINE LARGE (NEGATIVE); NITRITE, URINE POSITIVE (NEGATIVE); PROTEIN,URINE 3+ mg/dl (NEGATIVE); UROBILINOGEN,URINE 0.2 EU/dL (0.2)
[2021-11-25 21:08] LABS: MUCUS,URINE Moderate /LPF (None Seen)
[2021-11-25 21:09] LABS: FINE GRANULAR CASTS,URINE Few /LPF (None Seen); TRIPLE PHOSPHATE CRYSTAL,UR Few /HPF (None Seen); URINE AMORPHOUS PHOSPHATES Many /HPF (None Seen)
[2021-11-25 21:10] LABS: BACTERIA,URINE 2+ /HPF (None Seen); RBC,URINE 21-50 /HPF (0-2); SQUAMOUS EPITHELIAL CELL,UR 0-2 /HPF (None Seen); WBC,URINE 21-50 /HPF (0-3)
--- NOTE | 2021-11-25 21:49 | NUR ---
RN NOTE PATIENT'S TEMP HAS DECREASED TO 97.4 F. PATIENT STABLE; WILL CONTINUE TO MONITOR PATIENT.
--- NOTE | 2021-11-25 23:54 | NUR ---
RN NOTE PATIENT HAS 3-7 SEC PAUSES ON TELE MONITOR READ OUT. DR. GILL NOTIFIED. PER MD PATIENT WILL BE TRANSFERRED TO [facility] FOR HLOC.
[2021-11-26] VITALS (7 sets, daily range): BP systolic 98–135; BP diastolic 50–77
--- NOTE | 2021-11-26 01:08 | NUR ---
RN NOTE REPORT GIVEN TO SHAWNA IN [facility]/113-1. PATIENT WILL BE TRANSFERRED W/ ACLS MEASURES IN PLACE.
--- NOTE | 2021-11-26 01:18 | NUR ---
RN NOTE PATIENT SAFELY & SUCCESSFULLY TRANSFERRED TO [facility]. REPORT AND HAND-OFF GIVEN TO NIDIA MATOS.
--- NOTE | 2021-11-26 01:25 | NUR ---
RN NOTE REPORT RECEIVED FROM JOVANNY RN, PATIENT TRANSFERRED FROM [facility] VIA MEDICAL BED ACCOMPANIED BY JOVANNY JACOB AND NANI YOST PT NON VERBAL, OPENS EYES, DOES NOT FOLLOW COMMANDS, IN NO ACUTE DISTRESS AT THIS TIME. RESPIRATION UNLABORED, SATURATION AT 97% ON 2L VIA NC, SR ON THE MONITOR, HR IS 74. IV LINE AT L AC 20G PATENT AND FLUSHING WELL, NO S/S OF INFECTION OR INFILTRATION WITH NS INFUSING AT 75 ML/HR. NOTED GTUBE IN PLACE POSITIVE PLACEMENT NOTED, NO RESIDUAL, WITH TUBE FEEDING OF GLUCERNA AT 55 ML/HR. JIMENEZ CATHETER DRAINING TO A CLEAR, YELLOW OUTPUT. SKIN CHECK DONE, NO SKIN ISSUES NOTED. DVT PUMPS IN PLACE. SAFETY MEASURES IMPLEMENTED. PATIENT BED ALARM IS ON. HEAD OF BED ELEVATED. BED IS LOCKED, IN LOWEST POSITION AND SIDE RAILS UP. CALL LIGHT WITHIN REACH OF THE PATIENT. WILL CONTINUE TO MONITOR AND REASSESS FOR ANY CHANGES.
[2021-11-26] MEDS: IV NS 0.9% 1,000 ML IV PRN ×2 (03:43→17:10)
[2021-11-26] MEDS ORDERED: DEXTROSE 50%-WATER 50 ML DISP.SYRIN IV PRN (05:00)
[2021-11-26] MEDS: BLOOD SUGAR DIAGNOSTIC 1 EACH STRIP IN SCH ×4 (06:05→23:09)
[2021-11-26 07:10] LABS: BASOPHILS # (AUTO) 0.1 K/uL (0.0-0.2); BASOPHILS % (AUTO) 0.7 % (0.0-2.0); EOSINOPHILS % (AUTO) 0.5 % (0.0-6.0); HEMATOCRIT 37 % (33-45); HEMOGLOBIN 12.4 g/dL (11.5-14.8); LYMPHOCYTES # (AUTO) 2.6 K/uL (0.8-4.8); MEAN CORPUSCULAR HGB CONC 34 g/dl (31.0-36.0); MEAN CORPUSCULAR VOLUME 100 fL (82-100); MONOCYTES # (AUTO) 0.8 K/uL (0.1-1.30); MONOCYTES % (AUTO) 11.2 % (2.0-12.0); NEUTROPHILS # (AUTO) 3.9 K/uL (1.8-8.9); NEUTROPHILS % (AUTO) 52.6 % (43.0-81.0); PLATELET COUNT (AUTO) 154 K/uL (150-450); WHITE BLOOD COUNT (AUTO) 7.4 K/uL (4.3-11.0)
[2021-11-26 07:24] LABS: ALBUMIN 2.9 g/dL (3.4-5.0); BILIRUBIN,TOTAL 0.2 mg/dL (0.2-1.0); CALCIUM, SERUM 8.6 mg/dL (8.5-10.1); CREATININE 0.9 mg/dL (0.6-1.3); MAGNESIUM 2.2 mg/dL (1.8-2.4); PHOSPHORUS 2.9 mg/dL (2.5-4.9); POTASSIUM 3.8 mmol/L (3.5-5.1); TOTAL PROTEIN, SERUM 6.5 g/dL (6.4-8.2)
--- NOTE | 2021-11-26 07:52 | NUR ---
VEHICLE COST ENGINEER NOTE PATIENT RECEIVED ASLEEP ON BED. A/O X0, PT NON VERBAL, OPENS EYES, DOES NOT FOLLOW COMMANDS, IN NO ACUTE DISTRESS AT THIS TIME. RESPIRATION UNLABORED, SATURATION AT 97% ON 2L VIA NC, SR ON THE MONITOR, HR IS 770-80'S. IV LINE AT L AC 20G PATENT AND FLUSHING WELL, NO S/S OF INFECTION OR INFILTRATION WITH NS INFUSING AT 75 ML/HR. NOTED GTUBE IN PLACE POSITIVE PLACEMENT NOTED, NO RESIDUAL, WITH TUBE FEEDING OF GLUCERNA AT 55 ML/HR. JIMENEZ CATHETER DRAINING CLEAR, YELLOW OUTPUT. NO SKIN ISSUES NOTED. DVT PUMPS AND SAFETY MEASURES IN PLACE. PATIENT BED ALARM IS ON. HEAD OF BED ELEVATED. BED IS LOCKED, IN LOWEST POSITION AND SIDE RAILS UP WITH PADS. CALL LIGHT WITHIN REACH OF THE PATIENT. WILL CONTINUE TO MONITOR AND REASSESS FOR ANY CHANGES.
[2021-11-26] MEDS: RIVASTIGMINE TARTRATE 1.5 MG CAPSULE GT SCH ×2 (08:03→21:47)
[2021-11-26] MEDS: VALPROIC ACID 250 MG/5 ML UDC GT SCH ×3 (08:03→21:47)
[2021-11-26] MEDS: TOPIRAMATE 100 MG TABLET GT SCH ×2 (08:03→21:47)
[2021-11-26] MEDS: PANTOPRAZOLE 40 MG/PACK PACK GT SCH (08:04)
--- NOTE | 2021-11-26 09:30 | NUR ---
RN NOTES DUE MEDS GIVEN
[2021-11-26] MEDS: CEFTRIAXONE 1 G in IV D5W 50 ML IV SCH (10:45)
[2021-11-26] MEDS: GLUCERNA 1.2 1,000 ML BOTTLE PEG PRN (10:51)
--- NOTE | 2021-11-26 13:32 | NUR ---
RN NOTES REPORT GIVEN TO DENISE PUENTE.
[2021-11-26] MEDS: INSULIN REGULAR, HUMAN 100 UNIT/ML 3 ML VIAL SQ PRN ×2 (17:14→23:09)
--- NOTE | 2021-11-26 18:43 | NUR ---
RN CLOSING PATIENT IN BED, SLEEPING COMFORTABLY. IN NO ACUTE DISTRESS OBSERVED. SKIN IS WARM TO TOUCH KEEP CLEAN/DRY, PATIENT TOLERATED TUBE FEEDING GLUCERNA 1.2 AT 55 ML/HR, NO RESIDUAL NOTED. RESPIRATORY EVEN AND UNLABORED ON OXYGEN AT 2L VIA NC. KEPT ELEVATED HOB FOR ASPIRATION PRECAUTION AND ENSURE AIRWAY. JIMENEZ DRAINING CLEAR YELLOW OUTPUT. LOWEST POSITION OF THE BED FOR SAFETY. BED ALARM IS ON AT ALL THE TIME. ALL SAFETY PRECAUTION APPLIED. WILL ENDORSE TO TAX SERVICES SPECIALIST.
--- NOTE | 2021-11-26 19:20 | NUR ---
RN NOTES RECEIVED PT FOR CONTINUITY OF CARE. PATIENT A/OX0 ; NON VERBAL IN NO S/SX OF ACUTE DISTRESS AT THIS TIME; CURRENTLY ON 2L OF 02 VIA NC; WITH 02 SAT >95% AT THIS TIME. IV ACCESS PATENT AND INTACT. WITH IV FLUID RUNNING ORDERED. ALSO HAS A RUNNING TUBE FEEDING PRESCRIBED NO SIGNIFICANT RESIDUAL AT THIS TIME. WILL ENSURE SAFETY MEASURES WITHIN THE SHIFT. PATIENT BED ALARM IS ON. HEAD OF BED ELEVATED. BED IS LOCKED, IN LOWEST POSITION AND SIDE RAILS UP. CALL LIGHT WITHIN REACH OF THE PATIENT. APPLICABLE ISOLATION PRECAUTIONS IN PLACE. WILL CONTINUE TO MONITOR AND REASSESS FOR ANY CHANGES AND WILL CARRY OUT ANY ONGOING AND ACTIVE MD ORDER.
[2021-11-27] VITALS: BP 102/53
[2021-11-27 04:00] VITALS: BP 118/55
--- NOTE | 2021-11-27 04:00 | NUR ---
RN NOTES FACILITATED INSERTION OF IV LINE/ACCESS @ R FA G#22; SECURED, INTACT AND FLUSHING WELL. CONCRETE BOOM OPERATOR MADE AWARE.
[2021-11-27] MEDS: INSULIN REGULAR, HUMAN 100 UNIT/ML 3 ML VIAL SQ PRN ×2 (05:15→12:48)
[2021-11-27] MEDS: BLOOD SUGAR DIAGNOSTIC 1 EACH STRIP IN SCH ×3 (05:15→18:17)
--- NOTE | 2021-11-27 05:22 | NUR ---
RN NOTES REPORT GIVEN TO NIDIA REED FOR KWAME. ALL PERTINENT PT & MEDICAL INFO GIVEN.
--- NOTE | 2021-11-27 05:52 | NUR ---
rn telephone triage notes received pts and report to ricci .remain on 2liters of 02 , iv fluids of ns 75cc/hr cont on tube feeding .no residual noted,will endorse to rn day shift for continuity of care.
[2021-11-27 06:27] LABS: BASOPHILS # (AUTO) 0.1 K/uL (0.0-0.2); BASOPHILS % (AUTO) 0.7 % (0.0-2.0); EOSINOPHILS % (AUTO) 1.7 % (0.0-6.0); HEMATOCRIT 38 % (33-45); HEMOGLOBIN 12.6 g/dL (11.5-14.8); LYMPHOCYTES # (AUTO) 2.2 K/uL (0.8-4.8); LYMPHOCYTES % (AUTO) 25.7 % (20.0-44.0); MEAN CORPUSCULAR HGB CONC 33 g/dl (31.0-36.0); MEAN CORPUSCULAR VOLUME 101 fL (82-100); MONOCYTES % (AUTO) 11.7 % (2.0-12.0); NEUTROPHILS # (AUTO) 5.1 K/uL (1.8-8.9); NEUTROPHILS % (AUTO) 60.2 % (43.0-81.0); PLATELET COUNT (AUTO) 141 K/uL (150-450); RED BLOOD CELL COUNT(AUTO) 3.81 MIL/uL (4.0-5.2); WHITE BLOOD COUNT (AUTO) 8.5 K/uL (4.3-11.0)
[2021-11-27 06:38] LABS: CALCIUM, SERUM 8.8 mg/dL (8.5-10.1); CREATININE 0.8 mg/dL (0.6-1.3)
--- NOTE | 2021-11-27 07:26 | NUR ---
RN AM NOTE PATIENT IS IN BED SLEEPING , ON )2 2L VIAN/C ,BREATHING UNLABORED, NO SIGHS OF DISTRESS, CURRENTLY ON ng TUBE GLUCERNA FEEDING AT 40 ML/HR NO RESIDUAL , HAS R HAND PERIPHERAL LINE 22 G WITH NS RUNNING AT 75 ML PER HR, PATIENT HAS JIMENEZ CATH , URINE IN YELLOW AND CLEAR, O2 SAT 98 %.ALL SAFETY MEASURES ARE OBSERVED . BED AT THE LOWEST POSITION, BED SIDE RAILS ARE UP,CALL LIGHT WITHIN REACH . WILL CONTINUE TO MONITOR.
[2021-11-27] MEDS: GLUCERNA 1.2 1,000 ML BOTTLE PEG PRN (07:48)
[2021-11-27] MEDS: IV NS 0.9% 1,000 ML IV PRN (07:49)
[2021-11-27 08:00] VITALS: BP 112/58
[2021-11-27] MEDS: VALPROIC ACID 250 MG/5 ML UDC GT SCH ×2 (08:35→13:37)
[2021-11-27] MEDS: RIVASTIGMINE TARTRATE 1.5 MG CAPSULE GT SCH (08:36)
[2021-11-27] MEDS: TOPIRAMATE 100 MG TABLET GT SCH (08:37)
[2021-11-27] MEDS: PANTOPRAZOLE 40 MG/PACK PACK GT SCH (08:37)
[2021-11-27] MEDS: CEFTRIAXONE 1 G in IV D5W 50 ML IV SCH (09:39)
[2021-11-27] MEDS ORDERED: VALP250S4 GT (10:55)
[2021-11-27] MEDS ORDERED: LEVO500T90 PO (10:55)
[2021-11-27 12:00] VITALS: BP 131/60
[2021-11-27 16:00] VITALS: BP 137/75
[2021-11-27 16:15] VITALS: BP 137/75
[2021-11-27] MEDS: ACETAMINOPHEN 325 MG TABLET PO PRN (18:13)
--- NOTE | 2021-11-27 18:27 | NUR ---
RN pm note Patient was sleepinf all day,on O2 via n/c 2 L per hr via n/c . Patient has G tube in place , Glucerna at 55 ml/per hr. Patient is breathing un labored , O 2 sat 89 %. Patient is at stable condition and ready for discharge at this moment . IV fluid was discontinued . peripheral IV access was removed .
== END 2021-11-27 20:25 | DRG 100 ==
LOC: ER 16:40 → TELE 20:06 → TELE1 11-26 01:28 → TELE-TD 11-26 01:31 → TELE1 11-26 09:54
PROVIDERS: ADMIT Internal Medicine; ATTEND Internal Medicine
DX: G40.911 Epilepsy, unspecified, intractable, with status epilepticus (principal); E43 Unspecified severe protein-calorie malnutrition; G93.41 Metabolic encephalopathy; N39.0 Urinary tract infection, site not specified; E11.9 Type 2 diabetes mellitus without complications; E78.5 Hyperlipidemia, unspecified; Z20.822 Contact with and (suspected) exposure to COVID-19; E88.09 Other disorders of plasma-protein metabolism, not elsewhere classified; Z79.84 Long term (current) use of oral hypoglycemic drugs; Z79.899 Other long term (current) drug therapy; K21.9 Gastro-esophageal reflux disease without esophagitis; R13.10 Dysphagia, unspecified; Z93.1 Gastrostomy status; B96.89 Other specified bacterial agents as the cause of diseases classified elsewhere; Z86.59 Personal history of other mental and behavioral disorders
CPT/HCPCS: 36415; 70450-TC; 71045-TC; 80048-TC; 80053-TC; 80076-TC; 80164-TC; 81001; 82962-TC; 83735-TC; 84100-TC; 84443-TC; 85025-TC; 85730-TC; 87081-TC; 87086-TC; 87186-TC; 94799-TC; C9803; G0378; G0480; J0696; J1815; J2060; J3490; J7030; J7060

== ENCOUNTER 2022-03-07 08:42 | Inpatient (IN) | payer MEDICARE, OTHER ==
[~2022-03-07] VITALS: Ht 157.5 cm; Wt 43.1 kg
[~2022-03-07 08:42] MED LIST changes: +ACET-2605 GT; +ALLA266C2 TP; +MAGN400O6 GT; +NUT.237L31 GT; +PANT40SU2 GT; +POLY17PO4 GT; -RISP0.2515 PO; +VALP250S4 GT
--- NOTE | 2022-03-07 08:45 | NUR ---
BIB RA 86 FROM [facility] STATING THAT FACICILITY REPORTED SHE HAD A SEIZURE AT 0800 THIS MORNIGN UPON ARRIVAL AT 0820 SHE WAS STILL SEIZING IN WHICH THEY GAVE 5MG VERSED IN WHICH SHE STOPPED SEIZING AND APPLIED NONREBREATHER MASK, PT WAS SATTING LOW 80'S. UPON ARRIVAL PT HAS A FEVER 0F 103. ATTACHED TO MONITOR. PT HAS HX OF SEIZURE BASELINE IS NONVERBAL. AWAITING MD ORDERS.
[2022-03-07] MEDS ORDERED: PHEN125O3 GT (08:56)
[2022-03-07] MEDS ORDERED: LEVE100S GT (08:56)
[2022-03-07] MEDS ORDERED: AMIN30LI27 GT (08:56)
[2022-03-07] MEDS ORDERED: IV NS 0.9% 1,000 ML BAG IV ONE (09:00)
[2022-03-07] MEDS ORDERED: VANCOMYCIN 1 GM in IV D5W 250 ML IV ONE (09:00)
[2022-03-07] MEDS ORDERED: ACETAMINOPHEN 650 MG/SUPP.RECT RC ONE ×2 (09:00→09:03)
[2022-03-07] MEDS ORDERED: PIPERACILLIN /TAZOBACTAM 3.375 G in IV D5W 50 ML IV ONE (09:00)
--- NOTE | 2022-03-07 09:05 | NUR ---
IV LINE ESTABLISHED, BLOOD DRAWN AND SENT TO LAB
--- NOTE | 2022-03-07 09:08 | NUR ---
URINE COLLECTED AND SENT
--- NOTE | 2022-03-07 09:18 | NUR ---
PT TAKEN TO CT VIA RENATO
[2022-03-07 09:23] LABS: BASOPHILS # (AUTO) 0.1 K/uL (0.0-0.2); BASOPHILS % (AUTO) 0.4 % (0.0-2.0); EOSINOPHILS % (AUTO) 0.1 % (0.0-6.0); HEMATOCRIT 42 % (33-45); HEMOGLOBIN 13.1 g/dL (11.5-14.8); LYMPHOCYTES # (AUTO) 2.5 K/uL (0.8-4.8); LYMPHOCYTES % (AUTO) 17.8 % (20.0-44.0); MEAN CORPUSCULAR HGB CONC 32 g/dl (31.0-36.0); MEAN CORPUSCULAR VOLUME 104 fL (82-100); MONOCYTES # (AUTO) 0.4 K/uL (0.1-1.30); MONOCYTES % (AUTO) 3.2 % (2.0-12.0); NEUTROPHILS # (AUTO) 10.8 K/uL (1.8-8.9); NEUTROPHILS % (AUTO) 78.5 % (43.0-81.0); PLATELET COUNT (AUTO) 365 K/uL (150-450); RED BLOOD CELL COUNT(AUTO) 4.01 MIL/uL (4.0-5.2); WHITE BLOOD COUNT (AUTO) 13.8 K/uL (4.3-11.0)
--- NOTE | 2022-03-07 09:30 | NUR ---
COVID SWAB COLLECTED AND SENT TO LAB
[2022-03-07 09:34] LABS: CALCIUM, SERUM 8.3 mg/dL (8.5-10.1); CARBON DIOXIDE 22 mmol/L (21-32); CHLORIDE 109 mmol/L (98-107); CREATININE 0.9 mg/dL (0.6-1.3); GLUCOSE 330 mg/dL (74-106); SODIUM SERUM 142 mmol/L (136-145); UREA NITROGEN, BLOOD 29 mg/dL (7-18)
[2022-03-07 09:40] LABS: ALANINE AMINOTRANSFERASE 44 U/L (12-78); ALBUMIN 2.5 g/dL (3.4-5.0); ALKALINE PHOSPHATASE 141 U/L (46-116); ASPARTATE AMINOTRANSFERASE 37 U/L (15-37); BILIRUBIN,TOTAL 0.2 mg/dL (0.2-1.0)
[2022-03-07 10:09] LABS: BILIRUBIN,URINE NEGATIVE (NEGATIVE); COLOR,URINE YELLOW (YELLOW); LEUKOCYTE ESTERASE ,URINE NEGATIVE (NEGATIVE); NITRITE, URINE NEGATIVE (NEGATIVE); PROTEIN,URINE 30 mg/dl (NEGATIVE); UGLUCOSE NEGATIVE (NEGATIVE); UROBILINOGEN,URINE 0.2 EU/dL (0.2)
[2022-03-07 10:13] LABS: WBC,URINE 0-2 /HPF (0-3)
[2022-03-07 10:14] LABS: BACTERIA,URINE None seen /HPF (None Seen); SQUAMOUS EPITHELIAL CELL,UR Few /HPF (None Seen)
[2022-03-07] MEDS ORDERED: MORPHINE SULFATE INJ 2 MG/ML DISP.SYRIN IV PRN (11:00)
[2022-03-07] MEDS ORDERED: ONDANSETRON HCL/PF 4 MG/2 ML VIAL IVP PRN (11:00)
[2022-03-07] MEDS ORDERED: GLUCERNA 1.5 1,000 ML BOTTLE GT SCH (11:00)
[2022-03-07] MEDS ORDERED: ACETAMINOPHEN ES 500 MG TABLET GT PRN (11:00)
[2022-03-07] MEDS ORDERED: Z GUARD REMEDY 4 OZ OINT TP PRN (11:00)
--- NOTE | 2022-03-07 11:20 | NUR ---
room 105
--- NOTE | 2022-03-07 11:46 | NUR ---
ROOM 108 PER [facility]
--- NOTE | 2022-03-07 11:55 | NUR ---
NIDIA LIRA, FOR REPORT
--- NOTE | 2022-03-07 12:14 | NUR ---
REPORT GIVEN TO DADA JACOB ROOM 108 FOR KWAME
[2022-03-07 13:00] VITALS: BP 120/65
[2022-03-07] MEDS ORDERED: VALPROIC ACID 250 MG/5 ML UDC GT SCH (13:00)
--- NOTE | 2022-03-07 13:00 | NUR ---
RN NOTES RECEIVED PT IN ROOM 108 TELE STATUS , PT IS OBTUNDED, DOES NOT FOLLOW COMMAND, DOES NOT RESPONDED TO PAINFUL STIMULI ,ON FACE MASK AT 8L , ORAL AND NT SUCTION CODE, SMALL AMOUNT OF RED BLOODY SECRETION NOTED , O2 SAT 92-93%, PEG TUBE INTACT AND CLAMPED AT THIS TIME, IV SITES CDI, IVF AT 75CC/HR STARTED, SR UPx3, CALL LIGHT WITHIN EASY REACH, BED LOCKED AND IN LOWEST POSITION, CONTINUE TO MONITOR Addendum: 03/07/22 at 1754 by THEO PICKENS RN correction : pt is [facility] STATUS
[2022-03-07] MEDS: ENOXAPARIN SODIUM 40 MG/0.4 ML DISP.SYRIN SQ SCH (13:34)
[2022-03-07] MEDS: LEVETIRACETAM SOL (5 ML) 100 MG/ML UDC GT SCH ×2 (13:35→16:30)
[2022-03-07] MEDS: PHENYTOIN SUSP UDC 100 MG/4 ML UDC PO SCH ×2 (13:35→16:30)
[2022-03-07] MEDS: IV D5/0.45 NACL 1,000 ML IV PRN (13:36)
[2022-03-07 14:04] LABS: PHENYTOIN (DILANTIN) 14.7 ug/ml (10.0-20.0)
[2022-03-07 14:22] LABS: ABG PCO2 38.2 mmHg (35.0-45.0); ABG PH 7.324 (7.350-7.450); ABG PO2 77.1 mmHg (75.0-100.0); AaDO2 164.2 mmHg; COHb 0.3 % (0.5-1.5); MetHb 0.1 % (0.0-1.5); O2Hb 93.6 % (94.0-97.0); SITE, ABG Right Radial
[2022-03-07] MEDS ORDERED: PIPERACILLIN /TAZOBACTAM 3.375 G in IV D5W 50 ML IV SCH (15:00)
[2022-03-07] MEDS ORDERED: LORAZEPAM INJ 2 MG/ML VIAL IV PRN (15:00)
[2022-03-07] MEDS: GLUCERNA 1.2 1,000 ML BOTTLE GT PRN (15:26)
[2022-03-07 16:00] VITALS: BP 106/66
--- NOTE | 2022-03-07 16:39 | NUR ---
RN NOTES SLEEVE TAILOR AT THE BESIDE AT THIS TIME
--- NOTE | 2022-03-07 18:17 | NUR ---
RN NOTES NO SIGN OF SEIZURE ACTIVITIES NOTED ON THIS SHIFT, TF AT 75CC/HR RUNNING , TOLERATING TF WELL, NO RESIDUAL NOTED, PT OPENS EYES AT TIMES, NO SIGNIFICANT CHANGES NOTED ON THIS SHIFT , WILL ENDORSE TO CONTINUOUS IMPROVEMENT SPECIALIST NURSE FOR CONTINUITY OF CARE.
[2022-03-07 20:00] VITALS: BP 100/64
[2022-03-07] MEDS: CEFTRIAXONE 2 G in IV D5W 100 ML IV SCH (20:38)
[2022-03-07] MEDS: RIVASTIGMINE TARTRATE 1.5 MG CAPSULE GT SCH (20:41)
[2022-03-07] MEDS: TOPIRAMATE 100 MG TABLET GT SCH (20:41)
[2022-03-07] MEDS ORDERED: TOPIRAMATE 100 MG TABLET PO SCH (21:00)
[2022-03-07] MEDS ORDERED: TOPIRAMATE 100 MG TABLET GT SCH (21:00)
[2022-03-07] MEDS: VANCOMYCIN 0.75 GM in IV D5W 250 ML IV SCH (22:08)
--- NOTE | 2022-03-07 23:12 | NUR ---
TD RN OPENING NOTE PT RECEIVED IN BED, OBTUNDED, NON-VERBAL, OPENS EYES; NOTED TO MOVE EXTREMITIES TO LOCALIZED DEEP PAIN. PT ON 4L NC WITH CURRENT O2SAT OF 100%; NOTED TO HAVE CHEST CONGESTION, PT UNABLE TO COUGH; NO OTHER S/S OF RESP DISTRESS, NO SOB, NON-LABORED AND EQUAL BREATHING. PT ATTACHED TO EXTERNAL MONITOR,SR WITH HR OF 93. GTD C/D/I WITH GLUCERNA RUNNING AT 75 ML/HR X20 HRS; WILL TURN FEEDING OFF AT 0000 03/08/22; NO RESIDUALS NOTED. IV ACCESS ON RAC 20G AND RIGHT HAND 20G, INTACT AND PATENT, FLUSHES EASILY WITH NO RESISTANCE; D5 1/2 NS INFUSING AT 75 ML/HR. BED IN LOWEST POSITION, CALL LIGHT WITHIN REACH, SIDE RAILS UP X3. WILL CONTINUE TO MONITOR THROUGHOUT THE NIGHT.
[2022-03-08] VITALS: BP 120/68
[2022-03-08 04:00] VITALS: BP 109/68
[2022-03-08] MEDS: IV D5/0.45 NACL 1,000 ML IV PRN ×2 (04:23→18:26)
--- NOTE | 2022-03-08 06:14 | NUR ---
RN NOTE RECEIVED CALL FROM SIGRID FROM [facility]. CONFIRMED WITH HER THAT PT WILL STILL NEED TRANSFER SERVICES TO THEIR FACILITY FOR VIDEO EEG MONITORING; SIGRID RESPONDED THAT THEY WILL NEED TO CONFIRM WITH AN EXTERNAL PROVIDER FIRST.
--- NOTE | 2022-03-08 06:14 | NUR ---
TD RN CLOSING NOTE PT RECEIVED IN BED, OBTUNDED, NON-VERBAL, OPENS EYES; NOTED TO MOVE EXTREMITIES TO LOCALIZED DEEP PAIN, SUCH APPLYING PRESSURE TO FINGERNAILS WITH PEN. NO SEIZURES SUSTAINED DURING THE NIGHT AND REMAINS SAFE IN BED. CONTINUES TO BE ON 4L NC WITH O2SAT STABLE AT 100% THROUGHOUT THE WHOLE NIGHT. NO S/S OF RESP DISTRESS, NO SOB, NON-LABORED AND EQUAL BREATHING. PT ATTACHED TO EXTERNAL MONITOR, SR WITH HR RANGING FROM 93-97. GTD C/D/I WITH GLUCERNA RUNNING AT 75 ML/HR X20 HRS; GTF TURNED BACK ON AT 0400; NO RESIDUALS NOTED. IV ACCESS ON RAC 20G AND RIGHT HAND 20G, INTACT AND PATENT, FLUSHES EASILY WITH NO RESISTANCE; D5 1/2 NS INFUSING AT 75 ML/HR. ALL DUE MEDS ADMINISTERED DURING THE NIGHT. BED IN LOWEST POSITION, CALL LIGHT WITHIN REACH, SIDE RAILS UP X3. WILL ENDORSE TO DAYSHIFT NURSE TO CONTINUE CARE.
[2022-03-08 06:42] LABS: BASOPHILS % (AUTO) 0.3 % (0.0-2.0); HEMATOCRIT 36 % (33-45); HEMOGLOBIN 11.6 g/dL (11.5-14.8); LYMPHOCYTES # (AUTO) 1.4 K/uL (0.8-4.8); MEAN CORPUSCULAR HGB CONC 33 g/dl (31.0-36.0); MEAN CORPUSCULAR VOLUME 102 fL (82-100); MONOCYTES # (AUTO) 0.7 K/uL (0.1-1.30); NEUTROPHILS # (AUTO) 8.9 K/uL (1.8-8.9); NEUTROPHILS % (AUTO) 80.7 % (43.0-81.0); PLATELET COUNT (AUTO) 247 K/uL (150-450); RED BLOOD CELL COUNT(AUTO) 3.51 MIL/uL (4.0-5.2)
[2022-03-08 07:21] LABS: CALCIUM, SERUM 8.4 mg/dL (8.5-10.1); CREATININE 0.5 mg/dL (0.6-1.3); MAGNESIUM 1.9 mg/dL (1.8-2.4); PHOSPHORUS 1.6 mg/dL (2.5-4.9); POTASSIUM 3.4 mmol/L (3.5-5.1)
[2022-03-08 07:32] LABS: PHENYTOIN (DILANTIN) 14.8 ug/ml (10.0-20.0)
[2022-03-08 08:00] VITALS: BP 112/63
--- NOTE | 2022-03-08 08:00 | NUR ---
rn notes seen patient via neuralogist, lab values checked, and get new orders EEG 03/07/22 with right paroxysmal discharges which spread to left. will increase Depakote to 500 mg q12, increase Dilantin to 200 mg q8 and increase Topamax to 150 mg q12. Continue Keppra 1500 mg q12. recommend patient be transferred to higher level center for continuous EEG monitoring optimize medical management.
[2022-03-08] MEDS ORDERED: VALPROATE 1,000 MG in IV D5W 100 ML IV ONE (09:00)
[2022-03-08] MEDS: LEVETIRACETAM SOL (5 ML) 100 MG/ML UDC GT SCH ×2 (09:03→17:07)
[2022-03-08] MEDS: RIVASTIGMINE TARTRATE 1.5 MG CAPSULE GT SCH ×2 (09:04→21:50)
[2022-03-08] MEDS: PANTOPRAZOLE 40 MG/PACK PACK GT SCH (09:04)
[2022-03-08] MEDS: TOPIRAMATE 100 MG TABLET GT SCH ×2 (09:05→21:51)
[2022-03-08] MEDS: VALPROIC ACID 250 MG/5 ML UDC GT SCH ×3 (09:08→21:50)
[2022-03-08] MEDS: VANCOMYCIN 0.75 GM in IV D5W 250 ML IV SCH ×2 (09:09→21:51)
[2022-03-08] MEDS: PHENYTOIN SUSP UDC 100 MG/4 ML UDC PO SCH ×3 (09:19→21:50)
[2022-03-08] MEDS: ENOXAPARIN SODIUM 40 MG/0.4 ML DISP.SYRIN SQ SCH (10:02)
[2022-03-08] MEDS ORDERED: NEUTRA PHOS 1 POWD.PACKET NG ONE ×2 (10:30→13:30)
[2022-03-08 12:00] VITALS: BP 114/50
[2022-03-08 12:49] LABS: BAND % (MANUAL) 19 % (0.0-5.0); LYMPHOCYTES % (MANUAL) 13 % (16-48); MONOCYTES % (MANUAL) 4 % (0-11.0); NEUTROPHILS % (MANUAL) 64 (42-76)
[2022-03-08] MEDS: GLUCERNA 1.2 1,000 ML BOTTLE GT PRN (14:00)
[2022-03-08 16:00] VITALS: BP 112/63
[2022-03-08] MEDS: ACETAMINOPHEN 325 MG TABLET PO PRN (17:07)
--- NOTE | 2022-03-08 17:07 | NUR ---
RN NOTES T-100.0 F ADMINISTERED TYLENOL 650 MG VIA GT. ALSO ADMINISTERED DUE MEDICATION.
--- NOTE | 2022-03-08 18:30 | NUR ---
RN NOTES T-99F, MEDICATION WERE ADMINISTERED EFFECTIVE, DUE MEDICATION ADMINISTERED, PM CARE DONE, ASSIST TURN AND REPOSTION Q 2HR. PATIENT TOLERATED FEEDING WELL, NO SEIZURE AT THIS TIME. BED IS PADDED FOR SAFETY. PATIENT WILL TRANSFER TO THE [facility], CASE MANAGEMENT WORKING FOR AVAILABLE BED. CALL LIGHT WITHIN TO REACH. ENDORSED ONCOMING NURSE KWAME.
--- NOTE | 2022-03-08 19:45 | NUR ---
TD RN OPENING NOTES: RECEIVED PT IN BED, OBTUNDED, NON-VERBAL. ON O2 AT 4L/MIN VIA N/C AND PT TOLERATED WELL. IV ACCESS ON RAC 20G AND RIGHT HAND 20G INTACT AND PATENT. NO S/S OF INFILTRATIONS. RUNNING D5 1/2 NS AT 75 ML/HR. NO FACIAL GRIMACING NOTED. ON GTUBE FEEDING, RUNNING GLUCERNA 1.2 AT 75 ML/HR X20 HRS. WILL TURN OFF THE FEEDING AT 0000 AND TURN ON 0400. NO FACIAL GRIMACING NOTED. NO ACUTE DISTRESS. ALL SAFETY MEASURES IN PLACE. BED IN LOWEST POSITION AND LOCKED. SIDE RAILS UP X3, PLACE CALL LIGHT WITHIN REACH, WILL CONTINUE TO MONITOR.
--- NOTE | 2022-03-08 19:49 | NUR ---
RN NOTES: [facility]: #[phone], CALLED REGARDING PT GOT BED ROOM 272-1 AT [facility]. ADDRESS: [address] [place] [address], [id number]. WILL GIVE REPORT- [phone]. HOSPITALIST DR. ALEXANDER DEJESUS ALREADY ACCEPTED THE PT. CONSULTING DRLavelle WILL BE MYRNA PEOPLES.
[2022-03-08 20:00] VITALS: BP 105/50
[2022-03-08] MEDS: CEFTRIAXONE 2 G in IV D5W 100 ML IV SCH (20:23)
--- NOTE | 2022-03-08 20:49 | NUR ---
TELE-TD/RN EARLIEST BLOCK AND CASE MAKER AVAILABLE FOR ACLS PT TRANSFER TO [facility] IS 03/09/22 @1300 PER [facility] AMBULANCE SERVICE REF #[id number]. NURSING AUTOMATIC GRINDER OPERATOR LAYTON ESCAMILLA.
--- NOTE | 2022-03-08 20:55 | NUR ---
RN NOTES: CALLED [facility] OF [facility] AND TALKED TO ASAD. TRANSPORTATION AMBULANCE WILL BE APA#[phone]. REF#[id number]. EARLIEST GAMBLING BOX PERSON TIME WILL BE TOMORROW AT 1300.
[2022-03-09] VITALS: BP 119/59
[2022-03-09] MEDS: ACETAMINOPHEN 325 MG TABLET PO PRN ×2 (00:27→13:59)
--- NOTE | 2022-03-09 00:32 | NUR ---
RN NOTES: PT'S TEMP INCREASED TO 100.6 F. TYLENOL 325 MG 2 TABS GIVEN VIA GTUBE AND PT TOLERATED WELL. WILL CONTINUE TO MONITOR
[2022-03-09 04:00] VITALS: BP 118/62
[2022-03-09] MEDS: PHENYTOIN SUSP UDC 100 MG/4 ML UDC PO SCH ×2 (04:46→12:23)
--- NOTE | 2022-03-09 06:46 | NUR ---
TD RN CLOSING NOTES: PT IN BED, OBTUNDED, NON-VERBAL. ON O2 AT 4L/MIN VIA N/C AND PT TOLERATED WELL. O2 SAT 100%. IV ACCESS ON RIGHT HAND 20G INTACT AND PATENT. NO S/S OF INFILTRATIONS. RUNNING D5 1/2 NS AT 75 ML/HR. NO FACIAL GRIMACING NOTED. ON GTUBE FEEDING, RUNNING GLUCERNA 1.2 AT 75 ML/HR X20 HRS. WILL TURN OFF THE FEEDING AT 0000 AND TURN ON 0400. NO FACIAL GRIMACING NOTED. NO ACUTE DISTRESS. ALL DUE MEDS GIVEN ORDERED. ALL SAFETY MEASURES IN PLACE. BED IN LOWEST POSITION AND LOCKED. SIDE RAILS UP X3, PLACE CALL LIGHT WITHIN REACH, WILL ENDORSE TO MORNING SHIFT NURSE.
--- NOTE | 2022-03-09 07:00 | NUR ---
RN OPENING NOTES: PT IN BED, OBTUNDED, NON-VERBAL. ON O2 AT 4L/MIN VIA N/C AND PT TOLERATED WELL. O2 SAT 100%. IV ACCESS ON RIGHT HAND 20G INTACT AND PATENT. NO S/S OF INFILTRATIONS. RUNNING D5 1/2 NS AT 75 ML/HR. NO FACIAL GRIMACING NOTED. ON GTUBE FEEDING, RUNNING GLUCERNA 1.2 AT 75 ML/HR X20 HRS. NO FACIAL GRIMACING NOTED. NO ACUTE DISTRESS. ALL SAFETY MEASURES IN PLACE. BED IN LOWEST POSITION AND LOCKED. SIDE RAILS UP X3, PLACE CALL LIGHT WITHIN REACH, WILL CONTINUE PLAN OF CARE AND ANTICIPATE NEEDS.
[2022-03-09 07:18] LABS: BASOPHILS % (AUTO) 0.2 % (0.0-2.0); HEMATOCRIT 39 % (33-45); HEMOGLOBIN 12.5 g/dL (11.5-14.8); LYMPHOCYTES # (AUTO) 1.7 K/uL (0.8-4.8); LYMPHOCYTES % (AUTO) 12.3 % (20.0-44.0); MEAN CORPUSCULAR HGB CONC 32 g/dl (31.0-36.0); MEAN CORPUSCULAR VOLUME 101 fL (82-100); MONOCYTES % (AUTO) 7.2 % (2.0-12.0); NEUTROPHILS # (AUTO) 11.1 K/uL (1.8-8.9); NEUTROPHILS % (AUTO) 80.3 % (43.0-81.0); PLATELET COUNT (AUTO) 254 K/uL (150-450); RED BLOOD CELL COUNT(AUTO) 3.88 MIL/uL (4.0-5.2); WHITE BLOOD COUNT (AUTO) 13.8 K/uL (4.3-11.0)
[2022-03-09 07:34] LABS: CALCIUM, SERUM 8.8 mg/dL (8.5-10.1); CREATININE 0.4 mg/dL (0.6-1.3); POTASSIUM 3.7 mmol/L (3.5-5.1)
[2022-03-09 08:00] VITALS: BP 118/73
[2022-03-09] MEDS: LEVETIRACETAM SOL (5 ML) 100 MG/ML UDC GT SCH (08:39)
[2022-03-09] MEDS: RIVASTIGMINE TARTRATE 1.5 MG CAPSULE GT SCH (08:40)
[2022-03-09] MEDS: PANTOPRAZOLE 40 MG/PACK PACK GT SCH (08:40)
[2022-03-09] MEDS: VALPROIC ACID 250 MG/5 ML UDC GT SCH (08:40)
[2022-03-09] MEDS: TOPIRAMATE 100 MG TABLET GT SCH (08:40)
[2022-03-09] MEDS: IV D5/0.45 NACL 1,000 ML IV PRN (08:46)
[2022-03-09 09:07] LABS: PHOSPHORUS 1.9 mg/dL (2.5-4.9)
--- NOTE | 2022-03-09 09:12 | NUR ---
WOUND CARE CONSULT: PT PRESENTS WITH RT LATERAL ANKLE INTACT DEEP TISSUE INJURY/SCAR AND SACRAL SCARRING, PRESENT ON ADMISSION. RECOMMENDATIONS MADE FOR SKIN PROTECTION. DISCUSSED WITH NURSING STAFF. MD IN AGREEMENT WITH PLAN OF CARE.
[2022-03-09] MEDS ORDERED: VANCOMYCIN 1 GM in IV D5W 250ml IV SCH (10:00)
[2022-03-09] MEDS: ENOXAPARIN SODIUM 40 MG/0.4 ML DISP.SYRIN SQ SCH (10:13)
[2022-03-09 12:00] VITALS: BP 131/68
--- NOTE | 2022-03-09 14:30 | NUR ---
PATIENT HAS BEEN DISCHARGED TO ANOTHER FACILITY FOR HIGHER LEVEL OF CARE. IV ACCESS REMAINS. HAND OFF REPORT GIVEN TO NURSE AT OTHER HOSPITAL. PATIENT LEFT FACILITY WITH AMBULANCE CREW IN STABLE CONDITION.
== END 2022-03-09 15:15 | disposition short-term general hospital (02) | DRG 871 ==
LOC: ER 09:25 → TELE1 11:32 → TELE-TD 12:19
PROVIDERS: ATTEND Student in an Organized Health Care Education/Training Program
DX: A41.9 Sepsis, unspecified organism (principal); E43 Unspecified severe protein-calorie malnutrition; I21.4 Non-ST elevation (NSTEMI) myocardial infarction; J69.0 Pneumonitis due to inhalation of food and vomit; D68.59 Other primary thrombophilia; F05 Delirium due to known physiological condition; E87.2 Acidosis; G93.40 Encephalopathy, unspecified; G40.409 Other generalized epilepsy and epileptic syndromes, not intractable, without status epilepticus; Z20.822 Contact with and (suspected) exposure to COVID-19; E78.5 Hyperlipidemia, unspecified; K21.9 Gastro-esophageal reflux disease without esophagitis; K29.70 Gastritis, unspecified, without bleeding; R13.10 Dysphagia, unspecified; Z93.1 Gastrostomy status; E11.9 Type 2 diabetes mellitus without complications; F03.90 Unspecified dementia, unspecified severity, without behavioral disturbance, psychotic disturbance, mood disturbance, and anxiety; Z79.84 Long term (current) use of oral hypoglycemic drugs; Z79.899 Other long term (current) drug therapy; E88.09 Other disorders of plasma-protein metabolism, not elsewhere classified; Z74.09 Other reduced mobility; R09.02 Hypoxemia; G93.89 Other specified disorders of brain; F31.9 Bipolar disorder, unspecified; F29 Unspecified psychosis not due to a substance or known physiological condition
CPT/HCPCS: 36415; 36600; 70450-TC; 71045-TC; 80048-TC; 80076-TC; 80164-TC; 80185-TC; 80202-TC; 81001; 83605-TC; 83735-TC; 84100-TC; 84484-TC; 85025-TC; 85730-TC; 87040-TC; 87086-TC; 94799-TC; 95819-TC; C9803; G0378; J0696; J1650; J1953; J2543; J3370; J3490; J7030; J7060

== ENCOUNTER 2022-04-14 21:25 | Inpatient (IN) | payer MEDICARE, OTHER ==
[~2022-04-14] VITALS: Ht 157.5 cm; Wt 52.6 kg
[~2022-04-14 21:25] MED LIST changes: -ALLA266C2 TP; +AMIN30LI27 GT; +LEVE100S GT; +PHEN125O3 GT; -POLY17PO4 GT
--- NOTE | 2022-04-14 21:35 | NUR ---
RADHA FROM SNF C/O LOW 02 80% ON RA, NO TRIAGE 3L N/C 96%. PLACED ON BED, NON VERBAL, SATURATING AT 97%RA.
--- NOTE | 2022-04-14 22:04 | NUR ---
RAC #20G S/L BLOOD COLLECTED AND SENT TO LAB
[2022-04-14 22:13] LABS: BASOPHILS # (AUTO) 0.1 K/uL (0.0-0.2); BASOPHILS % (AUTO) 0.8 % (0.0-2.0); EOSINOPHILS % (AUTO) 0.4 % (0.0-6.0); HEMATOCRIT 43 % (33-45); HEMOGLOBIN 13.8 g/dL (11.5-14.8); LYMPHOCYTES # (AUTO) 2.4 K/uL (0.8-4.8); LYMPHOCYTES % (AUTO) 21.6 % (20.0-44.0); MEAN CORPUSCULAR HGB CONC 32 g/dl (31.0-36.0); MEAN CORPUSCULAR VOLUME 102 fL (82-100); MONOCYTES # (AUTO) 0.8 K/uL (0.1-1.30); MONOCYTES % (AUTO) 6.8 % (2.0-12.0); NEUTROPHILS # (AUTO) 7.8 K/uL (1.8-8.9); NEUTROPHILS % (AUTO) 70.4 % (43.0-81.0); PLATELET COUNT (AUTO) 247 K/uL (150-450); RED BLOOD CELL COUNT(AUTO) 4.23 MIL/uL (4.0-5.2); WHITE BLOOD COUNT (AUTO) 11.1 K/uL (4.3-11.0)
--- NOTE | 2022-04-14 22:25 | NUR ---
PATIENT TAKEN TO CT VIA RENATO
[2022-04-14 22:29] LABS: CALCIUM, SERUM 8.6 mg/dL (8.5-10.1); CARBON DIOXIDE 28 mmol/L (21-32); CHLORIDE 114 mmol/L (98-107); CREATININE 0.7 mg/dL (0.6-1.3); GLUCOSE 143 mg/dL (74-106); POTASSIUM 3.9 mmol/L (3.5-5.1); SODIUM SERUM 150 mmol/L (136-145); UREA NITROGEN, BLOOD 26 mg/dL (7-18)
[2022-04-14 22:34] LABS: ALANINE AMINOTRANSFERASE 74 U/L (12-78); ALBUMIN 2.4 g/dL (3.4-5.0); ALKALINE PHOSPHATASE 130 U/L (46-116); ASPARTATE AMINOTRANSFERASE 56 U/L (15-37); BILIRUBIN,DIRECT 0.2 mg/dL (0.0-0.2); BILIRUBIN,TOTAL 0.5 mg/dL (0.2-1.0); TOTAL PROTEIN, SERUM 7.2 g/dL (6.4-8.2)
--- NOTE | 2022-04-14 22:38 | NUR ---
SWAB FOR COVID19 SENT TO LAB
--- NOTE | 2022-04-14 22:57 | NUR ---
URINE SAMPLE SENT TO LAB
[2022-04-14] MEDS ORDERED: ACETAMINOPHEN ES 500 MG TABLET PO ONE (23:00)
--- NOTE | 2022-04-14 23:18 | NUR ---
DR MEZA PAGED PER DR KAYE. WILL CONSULT ON CASE.
--- NOTE | 2022-04-14 23:20 | NUR ---
SUPERVISING LAW ENFORCEMENT ANALYST AT PT'S BEDSIDE
[2022-04-14] MEDS ORDERED: PIPERACILLIN /TAZOBACTAM 3.375 G in IV D5W 50 ML IV ONE (23:30)
[2022-04-14] MEDS ORDERED: PIPERACILLIN /TAZOBACTAM 3.375 G VIAL IV ONE (23:43)
[2022-04-14] MEDS ORDERED: ACETAMINOPHEN ES 500 MG TABLET ONE (23:44)
[2022-04-14] MEDS ORDERED: ACETAMINOPHEN 650 MG/SUPP.RECT RC ONE (23:56)
[2022-04-15] MEDS ORDERED: ACETAMINOPHEN 650 MG/SUPP.RECT RC ONE
[2022-04-15] MEDS ORDERED: LORAZEPAM INJ 2 MG/ML VIAL IV PRN (00:30)
[2022-04-15] MEDS ORDERED: MORPHINE SULFATE INJ 2 MG/ML DISP.SYRIN IV PRN (00:30)
[2022-04-15] MEDS ORDERED: ONDANSETRON HCL/PF 4 MG/2 ML VIAL IVP PRN (00:30)
[2022-04-15] MEDS ORDERED: ACETAMINOPHEN 325 MG TABLET PO PRN (00:30)
[2022-04-15] MEDS ORDERED: Z GUARD REMEDY 4 OZ OINT TP PRN (00:30)
[2022-04-15 00:35] LABS: BILIRUBIN,URINE NEGATIVE (NEGATIVE); LEUKOCYTE ESTERASE ,URINE NEGATIVE (NEGATIVE); NITRITE, URINE NEGATIVE (NEGATIVE); PH,URINE 5.5 (5.0-8.0); PROTEIN,URINE 30 mg/dl (NEGATIVE); UGLUCOSE NEGATIVE (NEGATIVE)
[2022-04-15 00:36] LABS: COLOR,URINE DARK YELLOW (YELLOW)
[2022-04-15 01:25] VITALS: BP 92/68
--- NOTE | 2022-04-15 01:46 | NUR ---
REPORT GIVEN TO 3W NIDIA GRANDE FOR KWAME
--- NOTE | 2022-04-15 02:24 | NUR ---
PT TRANSFERRED TO 3W 326 VIA ACLS PROTOCOL. VSS.
[2022-04-15 02:30] VITALS: BP 92/68
--- NOTE | 2022-04-15 02:30 | NUR ---
LOADING MACHINE OPERATORFLAMER AFTER LASTING NOTE PT TRANSPORTED VIA GURNEY TO UNIT AT THIS TIME. PT FROM [facility] [place] ADMITTED TO TELE FROM ER UNDER CAMPUS RECRUITING COORDINATOR BETTY FOR ADMITTED DX OF PNEUMOPERITONEUM AND FACILITY ACQUIRED PNA. PT ABLE TO OPEN EYES AND RESPONSIVE TO LIGHT STIMULUS. NO SOB OR S/S OF RESPIRATORY DISTRESS. BREATHING EVEN AND UNLABORED. PT ON 3 LPM VIA NC, TOLERATING WELL. ON EXTERNAL SALES REPRESENTATIVE [employer] READING ST 106 BPM. NOTED WITH WOUNDS TO BILATERAL EARS, BILATERAL FEET, AND SACRAL SCAR. WOUND CARE CONSULT ORDERED AND PICTURES TAKEN AND PUT IN CHART. IV ACCESS RAC 20G, INTACT AND PATENT, RUNNING D5W @ 75 ML/HR. PT CAME WITH NO BELONGINGS AND BELONGINGS LIST SIGNED. SAFETY PRECAUTIONS IN PLACE. BED IN LOWEST LOCKED POSITION, HOB ELEVATED, SIDE RAILS UP X3 AND PADDED, AND CALL LIGHT AND TABLE WITHIN REACH. ALL NEEDS MET AT THIS TIME.
[2022-04-15] MEDS: IV D5W 1,000 ML IV PRN (02:46)
[2022-04-15 04:00] VITALS: BP 127/77
[2022-04-15] MEDS ORDERED: PIPERACILLIN /TAZOBACTAM 3.375 G in IV D5W 50 ML IV SCH (05:00)
[2022-04-15] MEDS ORDERED: PIPERACILLIN /TAZOBACTAM 3.375 G VIAL IV ONE (05:10)
[2022-04-15] MEDS ORDERED: PIPERACILLIN /TAZOBACTAM 3.375 G in IV D5W 50 ML IV ONE (06:00)
[2022-04-15 06:55] LABS: BACTERIA,URINE Rare /HPF (None Seen); SQUAMOUS EPITHELIAL CELL,UR Rare /HPF (None Seen); WBC,URINE NONE SEEN /HPF (0-3)
--- NOTE | 2022-04-15 06:55 | NUR ---
LINER REPLACER CLOSING NOTE PT RESTING IN BED, OPENS EYES TO VERBAL STIMULI. NONVERBAL. NO SOB OR S/S OF RESPIRATORY DISTRESS. BREATHING EVEN AND UNLABORED. PT ON 3 LPM VIA NC, TOLERATING WELL. ON EXTERNAL GANG PUSHER READING ST 110 BPM. IV ACCESS RAC 20G, INTACT AND PATENT, RUNNING D5W @ 75 ML/HR. ALL DUE MEDS GIVEN ORDERED. KEPT CLEAN AND DRY. KEPT NPO THIS SHIFT. SAFETY PRECAUTIONS IN PLACE AT ALL TIMES. BED IN LOWEST LOCKED POSITION, HOB ELEVATED, SIDE RAILS UP X3 AND PADDED, AND CALL LIGHT AND TABLE WITHIN REACH. ALL NEEDS MET AT THIS TIME AND WILL ENDORSE TO ONCOMING NURSE FOR KWAME.
--- NOTE | 2022-04-15 07:49 | NUR ---
[employer] MECHANIC OPENING NOTE RECEIVED PATIENT IN BED, AWAKE BUT NON VERBAL. AFEBRILE AND NOT ON ANY FORM OF ACUTE DISTRESS. ON O2 INHALATION VIA NASAL CANNULA AT 2LPM. WITH PEG TUBE WITH ORDER TO HOLD FEEDING FOR THE MEANTIME. WITH IV ACCESS ON RIGHT AC 20G INFUSING WITH D5W AT 75ML/HR. SAFETY MEASURES IN PLACE. KEPT BED IN LOCKED AND IN LOW POSITION TO REDUCE INJURY. SIDE RAILS UP AND CALL LIGHT WITHIN EASY REACH.
[2022-04-15] MEDS: PANTOPRAZOLE 40 MG VIAL IV SCH (08:21)
--- NOTE | 2022-04-15 08:30 | NUR ---
WOUND CARE CONSULT: PT PRESENTS WITH MULTIPLE DEEP TISSUE INJURIES TO FEET, BILATERAL EARS AND TO SACRUM (WITH SCARRING), PRESENT ON ADMISSION. DR TORRES AND DR MCCAULEY CALLED FOR SURGICAL AND DPM CONSULTS. RECOMMENDATIONS MADE FOR SKIN PROTECTION. DISCUSSED WITH NURSING STAFF. PT IS ON [place] [facility] LOW AIRLOSS BED. MD IN AGREEMENT WITH PLAN OF CARE.
[2022-04-15] MEDS ORDERED: ZINC220C6 GT (09:25)
[2022-04-15] MEDS ORDERED: MULT-439 GT (09:25)
[2022-04-15] MEDS ORDERED: POLY17PO4 GT (09:25)
[2022-04-15] MEDS ORDERED: INSU100V39 SQ (09:25)
[2022-04-15] MEDS ORDERED: HYDR-4076 GT (09:25)
[2022-04-15] MEDS ORDERED: ASCO500C17 GT (09:25)
[2022-04-15] MEDS: LEVETIRACETAM (500MG) 1,500 MG in IV NS 0.9% 100 ML IV SCH ×2 (09:30→21:10)
[2022-04-15] MEDS: PIPERACILLIN /TAZOBACTAM 3.375 G in IV D5W 100 ML IV SCH ×2 (13:56→22:39)
[2022-04-15] MEDS ORDERED: DIATR MEGLU/DIATRIZOATE SODIUM 30 ML BOTTLE (GASTROGRAPHIN) ONE (14:49)
--- NOTE | 2022-04-15 15:00 | NUR ---
RN NOTE- DR MEZA ORDERED 60CC GASTROGRAFIN ADMINISTERED TO GT. KUB 30 MINUTES AFTER. XR NOTIFIED. COMPLIED
--- NOTE | 2022-04-15 17:43 | NUR ---
RN NOTE- DR MEZA REVIEWED KUB. ORDERED TF RESTARTED. DIETARY CONSULT ORDERED.
--- NOTE | 2022-04-15 17:49 | NUR ---
RN NOTE- DR MEZA ORDERED RESTART GLUCERNA 1.5. / PREVIOUSLY WAS ON GLUCERNA 1.5 AT 60/HR. WILL RESTART AT 40 /HR . ADVANCE AND DIETARY CONSULT TOMORROW
[2022-04-15] MEDS ORDERED: GLUCERNA 1.5 1,000 ML BOTTLE PEG PRN (18:00)
[2022-04-15] MEDS ORDERED: GLUCERNA 1.2 1,000 ML BOTTLE NG PRN ×2 (18:30)
--- NOTE | 2022-04-15 18:41 | NUR ---
RN CLOSING NOTE PATIENT IN BED, AWAKE BUT NON VERBAL. AFEBRILE AND NOT IN ANY FORM OF ACUTE DISTRESS. ON O2 INHALATION VIA NASAL CANNULA AT 2LPM. NO COUGH, CHILLS OR CONGESTION NOTED. WITH INTACT PEG TUBE. 60 CC GASTROGRAFIN ADMINISTERED VIA GT PER DR MEZA. KUB THIRTY MIN AFTER. RELAYED RESULTS TO DR. MEZA AND ORDERED TO START FEEDING OF GLUCERNA 1.2KCAL AT 40ML/HR, AWAITING PUMP FROM CENTRAL SUPPLY. WITH IV ACCESS ON R AC 20G WITH D5W REGULATED AT 75ML/HR. ON IV ATB FOR PNA, MONITORED FOR ANY ADVERSE REACTION. RECEIVED AN ORDER SAFETY MEASURES IN PLACE. BED IN LOWEST POSITION. SIDE RAILS UP. CALL LIGHT WITHIN EASY REACH. ALL NURSING NEEDS ATTENDED.
--- NOTE | 2022-04-15 19:30 | NUR ---
noc rn opening received patient in bed with eyes closed, easy to arouse, non-verbal. no s/s of apparent distress on room air. not exhibiting pain via flacc. tele monitor reading sinus tachy with 106 bpm. IV d5w running @75mls/hr at this time. PEG tube in place with abdominal binder noted in place, clean and dry. started on G-tube feeding Glucerna 1.2 @40mls/hr as endorsed-- will monitor. seizure precaution in place. call light within reach. will continue with plan of care for patient.
[2022-04-15 20:00] VITALS: BP 97/66
[2022-04-16] VITALS: BP 104/67
[2022-04-16 04:00] VITALS: BP 109/66
[2022-04-16] MEDS: PIPERACILLIN /TAZOBACTAM 3.375 G in IV D5W 100 ML IV SCH ×3 (05:57→21:43)
[2022-04-16 06:36] LABS: BASOPHILS # (AUTO) 0.1 K/uL (0.0-0.2); BASOPHILS % (AUTO) 1.1 % (0.0-2.0); EOSINOPHILS % (AUTO) 0.1 % (0.0-6.0); HEMATOCRIT 35 % (33-45); HEMOGLOBIN 11.3 g/dL (11.5-14.8); LYMPHOCYTES # (AUTO) 1.7 K/uL (0.8-4.8); LYMPHOCYTES % (AUTO) 16.2 % (20.0-44.0); MEAN CORPUSCULAR HGB CONC 32 g/dl (31.0-36.0); MEAN CORPUSCULAR VOLUME 103 fL (82-100); MONOCYTES # (AUTO) 0.5 K/uL (0.1-1.30); MONOCYTES % (AUTO) 5.2 % (2.0-12.0); NEUTROPHILS # (AUTO) 8.1 K/uL (1.8-8.9); NEUTROPHILS % (AUTO) 77.4 % (43.0-81.0); PLATELET COUNT (AUTO) 211 K/uL (150-450); WHITE BLOOD COUNT (AUTO) 10.4 K/uL (4.3-11.0)
[2022-04-16] MEDS: IV D5W 1,000 ML IV PRN (06:52)
[2022-04-16 07:00] VITALS: BP 114/66
[2022-04-16 07:16] LABS: CALCIUM, SERUM 9.1 mg/dL (8.5-10.1); CREATININE 0.6 mg/dL (0.6-1.3); MAGNESIUM 2.5 mg/dL (1.8-2.4); PHOSPHORUS 2.5 mg/dL (2.5-4.9)
--- NOTE | 2022-04-16 07:48 | NUR ---
MULTI PURPOSE MACHINE OPERATOR OPENING NOTE RECEIVED PATIENT IN BED, ASLEEP BUT AROUSABLE , NON VERBAL. AFEBRILE , NO SOB OR DISTRESS NOTED . ON O2 INHALATION VIA NASAL CANNULA AT 2LPM. ON TELE MONITOR WITH READING OF SR 91 , WITH TUBE FEEDING OF GLUCERNA 1.2 @ 40 CC HR AND TOLERATED WELL , HOB AT ALL TIMES , WITH IV ACCESS ON RIGHT AC 20G INFUSING WITH D5W AT 75ML/HR. SAFETY MEASURES IN PLACE. KEPT BED IN LOCKED AND IN LOW POSITION TO REDUCE INJURY. SIDE RAILS UP AND CALL LIGHT WITHIN EASY REACH AND WILL CONTINUE , TO MONITOR FOR ANY CHANGES
--- NOTE | 2022-04-16 07:57 | NUR ---
noc rn closing report given to Jennifer for continuity of patient care.
[2022-04-16 08:42] LABS: POTASSIUM 2.8 mmol/L (3.5-5.1)
[2022-04-16] MEDS: LEVETIRACETAM (500MG) 1,500 MG in IV NS 0.9% 100 ML IV SCH (09:22)
[2022-04-16] MEDS: PROSOURCE / PROSTAT (PYXIS) 30 ML UDC GT SCH (09:55)
[2022-04-16] MEDS: POTASSIUM CHLORIDE 20 MEQ POWDER PACKET NG SCH ×5 (09:55→13:01)
[2022-04-16] MEDS: PANTOPRAZOLE 40 MG VIAL IV SCH (09:55)
[2022-04-16 12:00] VITALS: BP 110/69
[2022-04-16] MEDS: PHENYTOIN SUSP UDC 100 MG/4 ML UDC GT SCH ×2 (13:01→21:31)
[2022-04-16] MEDS: VALPROIC ACID 250 MG/5 ML UDC GT SCH ×2 (13:01→21:32)
[2022-04-16 16:00] VITALS: BP 108/71
--- NOTE | 2022-04-16 19:01 | NUR ---
CONTINUOUS DRYOUT OPERATOR HELPER CLOSING NOTE PATIENT IN BED, AWAKE BUT NON VERBAL. AFEBRILE , NO SOB OR DISTRESS NOTED . NO PAIN AND DISCOMFORT NOTED , ON O2 INHALATION VIA NASAL CANNULA AT 2LPM. ON TELE MONITOR WITH READING OF SR 91 AND TRANSFER TO [facility] , ALL DUE MEDS GIVEN ORDERED , WITH TUBE FEEDING OF GLUCERNA 1.2 @ [address] AND TOLERATED WELL , HOB AT ALL TIMES , WITH IV ACCESS ON RIGHT AC 20G INFUSING WITH D5W AT 75ML/HR. SAFETY MEASURES IN PLACE. KEPT BED IN LOCKED AND IN LOW POSITION TO REDUCE INJURY. SIDE RAILS UP AND CALL LIGHT WITHIN EASY REACH AND WILL CONTINUE , ENDORSED TO NEXT SHIFT
[2022-04-16 20:00] VITALS: BP 116/78
--- NOTE | 2022-04-16 20:07 | NUR ---
RN OPENING NOTE PATIENT ASLEEP IN BED. EYE-OPENING, NON-VERBAL. NO S/S OF DISTRESS, BREATHING WITHOUT DIFFICULTY ON 2L NC. RAC #20 INTACT AND PATENT W/ D5W @75ML/HR. GLUCERNA AT 60ML/HR. SAFETY MEASURES IN PLACE: BED LOCKED AND AT LOWEST POSITION, RAILS UP X2, CALL [place] WITHIN REACH. WILL CONTINUE TO MONITOR PATIENT.
[2022-04-16] MEDS: LEVETIRACETAM SOL (5 ML) 100 MG/ML UDC GT SCH (21:31)
[2022-04-16] MEDS: TOPIRAMATE 100 MG TABLET GT SCH (21:32)
[2022-04-17] MEDS: GLUCERNA 1.2 1,000 ML BOTTLE NG PRN (04:30)
[2022-04-17] MEDS: PIPERACILLIN /TAZOBACTAM 3.375 G in IV D5W 100 ML IV SCH ×3 (05:40→22:02)
[2022-04-17] MEDS: PHENYTOIN SUSP UDC 100 MG/4 ML UDC GT SCH ×3 (05:40→21:43)
[2022-04-17] MEDS: VALPROIC ACID 250 MG/5 ML UDC GT SCH ×3 (05:40→21:42)
[2022-04-17 06:36] LABS: BASOPHILS # (AUTO) 0.1 K/uL (0.0-0.2); BASOPHILS % (AUTO) 1.1 % (0.0-2.0); EOSINOPHILS % (AUTO) 2.6 % (0.0-6.0); HEMATOCRIT 35 % (33-45); LYMPHOCYTES # (AUTO) 1.5 K/uL (0.8-4.8); LYMPHOCYTES % (AUTO) 18.1 % (20.0-44.0); MEAN CORPUSCULAR HGB CONC 32 g/dl (31.0-36.0); MEAN CORPUSCULAR VOLUME 105 fL (82-100); MONOCYTES # (AUTO) 0.5 K/uL (0.1-1.30); MONOCYTES % (AUTO) 5.4 % (2.0-12.0); NEUTROPHILS # (AUTO) 6.1 K/uL (1.8-8.9); NEUTROPHILS % (AUTO) 72.8 % (43.0-81.0); PLATELET COUNT (AUTO) 196 K/uL (150-450); RED BLOOD CELL COUNT(AUTO) 3.32 MIL/uL (4.0-5.2); WHITE BLOOD COUNT (AUTO) 8.4 K/uL (4.3-11.0)
[2022-04-17 07:00] VITALS: BP 96/62
--- NOTE | 2022-04-17 07:00 | NUR ---
RN CLOSING NOTE PATIENT ASLEEP IN BED. A/OX NON-VERBAL, EYE OPENING. NO S/S OF DISTRESS, BREATHING WITHOUT DIFFICULTY ON 2L NC. RAC #20 INTACT AND PATENT W/ D5W @75ML/HR. SAFETY MEASURES IN PLACE: BED LOCKED AND AT LOWEST POSITION, RAILS UP X2, CALL [place] WITHIN REACH. WILL ENDORSE TO NEXT SHIFT FOR KWAME. Addendum: 04/17/22 at 0702 by JOVANNY OLIVEIRA RN ADDITIONAL INFORMATION: GLUCERNA 1.2 FEEDING @60ML/HR. NO RESIDUAL. TOLERATING FEEDING WELL.
[2022-04-17 07:04] LABS: CALCIUM, SERUM 8.8 mg/dL (8.5-10.1); CREATININE 0.5 mg/dL (0.6-1.3); MAGNESIUM 2.3 mg/dL (1.8-2.4); POTASSIUM 4.2 mmol/L (3.5-5.1)
--- NOTE | 2022-04-17 07:19 | NUR ---
MS RN OPENING NOTE RECEIVED PT IN BED, WITH SPONTANEOUS EYE OPENING, AWAKENS TO VERBAL STIMULI, PATIENT IS NON VERBAL. ON NC 2LPM AND TOLERATING WELL. NO SOB NOTED. WITH IV ACCES IN RAC #20G, PATENT AND INTACT. WITH G-TUBE WITH G-TUBE FEEDING ONGOING, TOLERATED WELL. SAFETY PRECAUTIONS IN PLACE: BED IN LOWEST, LOCKED POSITION, SIDERAILS UPx2, AND BRAKES ON. TABLE AND CALL LIGHT WITHIN REACH. COMFORT MEASURES PROVIDED. IN STABLE CONDITION.
[2022-04-17 07:49] LABS: PHOSPHORUS 3.2 mg/dL (2.5-4.9)
[2022-04-17] MEDS: PANTOPRAZOLE 40 MG/PACK PACK GT SCH (08:25)
[2022-04-17] MEDS: POLYETHYLENE GLYCOL 3350 17 GM POWD.PACK GT SCH (08:26)
[2022-04-17] MEDS: LEVETIRACETAM SOL (5 ML) 100 MG/ML UDC GT SCH ×2 (08:26→21:43)
[2022-04-17] MEDS: ZINC SULFATE 220 MG CAPSULE GT SCH (08:27)
[2022-04-17] MEDS: ASCORBIC ACID 500 MG TABLET GT SCH (08:27)
[2022-04-17] MEDS: PROSOURCE / PROSTAT (PYXIS) 30 ML UDC GT SCH ×2 (08:27→08:28)
[2022-04-17] MEDS: TOPIRAMATE 100 MG TABLET GT SCH ×2 (08:27→21:43)
[2022-04-17] MEDS ORDERED: ASCORBIC ACID SYRUP 500 MG/5 ML UDC GT SCH (09:00)
[2022-04-17 10:18] LABS: EOSINOPHILS % (MANUAL) 5 % (0-4); LYMPHOCYTES % (MANUAL) 20 % (16-48); MONOCYTES % (MANUAL) 2 % (0-11.0); NEUTROPHILS % (MANUAL) 73 (42-76)
--- NOTE | 2022-04-17 17:00 | NUR ---
MS RN NOTE SEEN BY DR. MCCURDY
--- NOTE | 2022-04-17 19:00 | NUR ---
MS RN CLOSING NOTE RECEIVED PT IN BED, WITH SPONTANEOUS EYE OPENING, AWAKENS TO VERBAL STIMULI, PATIENT IS NON VERBAL. ON NC 2LPM AND TOLERATING WELL. NO SOB NOTED. WITH IV ACCES IN RAC #20G, PATENT AND INTACT. WITH G-TUBE WITH G-TUBE FEEDING ONGOING, TOLERATED WELL. SAFETY PRECAUTIONS IN PLACE: BED IN LOWEST, LOCKED POSITION, SIDERAILS UPx2, AND BRAKES ON. TABLE AND CALL LIGHT WITHIN REACH. COMFORT MEASURES PROVIDED. ENDORSED TO NEXT SHIFT FOR CONTINUITY OF CARE.
--- NOTE | 2022-04-17 19:55 | NUR ---
RN OPENING NOTES RECEIVED PT IN BED, ASLEEP, AWAKENS TO VERBAL STIMULI. NONVERBAL AND SPONTANEOUS EYE OPENING. ON NC 2LPM AND TOLERATING WELL. NO SOB NOTED. NO S/SX OF RESPIRATORY DISTRESS NOTED. IV ACCES IN RAC #20G AND L HAND #22G. SAFETY PRECAUTIONS IN PLACE: BED IN LOWEST, LOCKED POSITION, SIDERAILS UPx2, AND BRAKES ON. TABLE AND CALL LIGHT WITHIN REACH. ALL NEEDS MET AT THIS TIME.
[2022-04-17 20:00] VITALS: BP 106/67
[2022-04-18] MEDS: PHENYTOIN SUSP UDC 100 MG/4 ML UDC GT SCH (04:48)
[2022-04-18] MEDS: VALPROIC ACID 250 MG/5 ML UDC GT SCH (04:48)
[2022-04-18] MEDS: IV D5W 1,000 ML IV PRN (04:48)
[2022-04-18] MEDS: GLUCERNA 1.2 1,000 ML BOTTLE NG PRN (04:50)
[2022-04-18] MEDS: PIPERACILLIN /TAZOBACTAM 3.375 G in IV D5W 100 ML IV SCH (05:15)
[2022-04-18 06:57] LABS: CREATININE 0.5 mg/dL (0.6-1.3); POTASSIUM 4.3 mmol/L (3.5-5.1)
[2022-04-18 07:00] VITALS: BP 107/62
--- NOTE | 2022-04-18 07:11 | NUR ---
MS RN OPENING NOTES RECEIVED PATIENT SLEEPING IN BED, NON-VERBAL, RESPONDS TO VERBAL AND TACTILE STIMULI. ON 2L OF O2 VIA NC. IV ACCESS: R AC #20 SL AND l HAND #22 RUNNING D5 @ 75 ML/HR. INTACT AND PATENT. INCONTINENT. HAS GTUBE FEEDING GLUCERNA @60 ML/HR. TOLERATING WELL. SKIN ISSUES: BILATERAL EAR WOUND, SACRAL SCAR, BILATERAL FOOT WOUNDS. DRESSING INTACT. SAFETY MEASURES IN PLACE: BED LOCKED AND IN LOWEST POSITION, SIDE RAILS UP x2, HOB ELEVATED, CALL LIGHT WITHIN REACH. WILL CONTINUE TO MONITOR.
--- NOTE | 2022-04-18 07:18 | NUR ---
RN CLOSING NOTES PT IN BED, ASLEEP, AWAKENS TO VERBAL STIMULI. NONVERBAL AND SPONTANEOUS EYE OPENING. ON NC 2LPM AND TOLERATING WELL. NO SOB NOTED. NO S/SX OF RESPIRATORY DISTRESS NOTED. IV ACCES IN RAC #20G AND L HAND #22G. ALL ORDERS CARRIED OUT. ALL NEEDS MET. PT KEPT CLEAN AND DRY. SAFETY PRECAUTIONS IN PLACE: BED IN LOWEST, LOCKED POSITION, SIDERAILS UPx2, AND BRAKES ON. TABLE AND CALL LIGHT WITHIN REACH. WILL ENDORSE TO ONCOMING SHIFT FOR KWAME.
[2022-04-18 08:37] LABS: BASOPHILS # (AUTO) 0.1 K/uL (0.0-0.2); BASOPHILS % (AUTO) 0.8 % (0.0-2.0); HEMATOCRIT 40 % (33-45); HEMOGLOBIN 11.8 g/dL (11.5-14.8); LYMPHOCYTES # (AUTO) 1.4 K/uL (0.8-4.8); LYMPHOCYTES % (AUTO) 18.1 % (20.0-44.0); MEAN CORPUSCULAR HGB CONC 30 g/dl (31.0-36.0); MEAN CORPUSCULAR VOLUME 112 fL (82-100); MONOCYTES # (AUTO) 0.5 K/uL (0.1-1.30); MONOCYTES % (AUTO) 6.5 % (2.0-12.0); NEUTROPHILS # (AUTO) 5.2 K/uL (1.8-8.9); NEUTROPHILS % (AUTO) 69.6 % (43.0-81.0); PLATELET COUNT (AUTO) 205 K/uL (150-450); RED BLOOD CELL COUNT(AUTO) 3.56 MIL/uL (4.0-5.2); WHITE BLOOD COUNT (AUTO) 7.5 K/uL (4.3-11.0)
[2022-04-18] MEDS: ASCORBIC ACID 500 MG TABLET GT SCH (09:00)
[2022-04-18] MEDS: ZINC SULFATE 220 MG CAPSULE GT SCH (09:00)
[2022-04-18] MEDS: PROSOURCE / PROSTAT (PYXIS) 30 ML UDC GT SCH ×2 (09:00→09:08)
[2022-04-18] MEDS: POLYETHYLENE GLYCOL 3350 17 GM POWD.PACK GT SCH (09:00)
[2022-04-18] MEDS: PANTOPRAZOLE 40 MG/PACK PACK GT SCH (09:00)
[2022-04-18] MEDS: LEVETIRACETAM SOL (5 ML) 100 MG/ML UDC GT SCH (09:00)
[2022-04-18] MEDS: TOPIRAMATE 100 MG TABLET GT SCH (09:08)
[2022-04-18] MEDS ORDERED: PIPE3.379 IV (10:44)
--- NOTE | 2022-04-18 13:50 | NUR ---
CAUL PULLER NOTES PATIENT DISCHARGE BACK TO SNF, REPORT GIVEN TO NIDIA POWER COMPLIANCE REPRESENTATIVE DEALER. ON 2L OF O2, VIA NC. STABLE, NO S/S OF RESPIRATORY DISTRESS. IV ACCESS KEPT L HAND #22 G, FOR IV ANTIBIOTICS TO BE CONTINUED. PATIENT IS NON-VERBAL UNABLE TO RESPOND, BUT REACTIVE TO VERBAL AND TACTILE STIMULI. HEALTH TEACHINGS AND DISCHARGE INSTRUCTIONS EXPLAINED TO NIDIA POWER. PATIENT LEFT UNIT @1330 ACCOMPANIED BY TWO machinist supervisor. CHARGE NURSE AND MD AWARE OF DISCHARGE.
== END 2022-04-18 13:35 | DRG 871 ==
LOC: ER 21:27 → TELE 04-15 01:40 → MED 04-16 18:11
PROVIDERS: ADMIT Nurse Practitioner Acute Care; ATTEND Nurse Practitioner Family
DX: A41.9 Sepsis, unspecified organism (principal); E43 Unspecified severe protein-calorie malnutrition; J15.9 Unspecified bacterial pneumonia; J69.0 Pneumonitis due to inhalation of food and vomit; D68.59 Other primary thrombophilia; E87.0 Hyperosmolality and hypernatremia; N17.9 Acute kidney failure, unspecified; G93.40 Encephalopathy, unspecified; K63.89 Other specified diseases of intestine; G40.909 Epilepsy, unspecified, not intractable, without status epilepticus; Z20.822 Contact with and (suspected) exposure to COVID-19; F03.90 Unspecified dementia, unspecified severity, without behavioral disturbance, psychotic disturbance, mood disturbance, and anxiety; E78.5 Hyperlipidemia, unspecified; R13.10 Dysphagia, unspecified; Z93.1 Gastrostomy status; E11.9 Type 2 diabetes mellitus without complications; F19.10 Other psychoactive substance abuse, uncomplicated; F29 Unspecified psychosis not due to a substance or known physiological condition; I25.2 Old myocardial infarction; Z74.09 Other reduced mobility; E88.09 Other disorders of plasma-protein metabolism, not elsewhere classified; F31.9 Bipolar disorder, unspecified; L89.896 Pressure-induced deep tissue damage of other site; Z66 Do not resuscitate; Z79.899 Other long term (current) drug therapy; N20.0 Calculus of kidney; N21.0 Calculus in bladder; R09.02 Hypoxemia
CPT/HCPCS: 31720; 36415; 71045-TC; 74018; 80048-TC; 80076-TC; 81001; 83605-TC; 83735-TC; 84100-TC; 84484-TC; 85025-TC; 85730-TC; 87040-TC; 87081-TC; 87086-TC; 93307-TC; 94799-TC; C9113; C9803; G0378; J1953; J2543; J7030; J7060; J7070; Q9963

== ENCOUNTER 2022-04-30 13:51 | Inpatient (IN) | payer MEDICARE, OTHER ==
[~2022-04-30] VITALS: Ht 154.9 cm; Wt 57.2 kg
[~2022-04-30 13:51] MED LIST changes: +ASCO500C17 GT; +HYDR-4076 GT; +INSU100V39 SQ; +MULT-439 GT; +PIPE3.379 IV; +POLY17PO4 GT; -RIVA1.5C13 GT; +ZINC220C6 GT
--- NOTE | 2022-04-30 13:55 | NUR ---
Received pt 71 yrs female transfer from [facility] BY ALEX FOR O2 SAT LASE THEN 80 % WITH ELVATED TEMP PT UNRESPONSIVE
--- NOTE | 2022-04-30 14:00 | NUR ---
SEEN BY DR. SAPP
--- NOTE | 2022-04-30 14:05 | NUR ---
INserted ango catheter on RT AC G 20 BLOOD DROW and sent to lab BLOOD CULTURE DROW and lactete
--- NOTE | 2022-04-30 14:10 | NUR ---
RAPID COVID SWAB DONE AND SENT TO LAB
[2022-04-30] MEDS ORDERED: ACET-868 GT (14:15)
[2022-04-30] MEDS ORDERED: ALLA266C2 TP (14:15)
[2022-04-30] MEDS ORDERED: GEL100GE TD (14:15)
[2022-04-30] MEDS ORDERED: PETR113O TP (14:15)
[2022-04-30] MEDS ORDERED: POVI3780 TP (14:15)
[2022-04-30] MEDS ORDERED: ACETAMINOPHEN 650 MG/SUPP.RECT RC ONE ×2 (14:15→14:30)
[2022-04-30] MEDS ORDERED: NUT.237L30 GT (14:15)
[2022-04-30] MEDS ORDERED: VANCOMYCIN 1 GM in IV D5W 250 ML IV ONE (14:30)
[2022-04-30] MEDS ORDERED: IV NS 0.9% 1,000 ML BAG IV ONE ×2 (14:30)
[2022-04-30] MEDS ORDERED: PIPERACILLIN /TAZOBACTAM 3.375 G in IV D5W 50 ML IV ONE (14:30)
--- NOTE | 2022-04-30 14:30 | NUR ---
PT CAME loss BM MOD AMT CLEAN PT DONE i&o catheter done UA SENT
[2022-04-30 14:31] LABS: BASOPHILS # (AUTO) 0.1 K/uL (0.0-0.2); BASOPHILS % (AUTO) 0.5 % (0.0-2.0); EOSINOPHILS % (AUTO) 0.2 % (0.0-6.0); HEMATOCRIT 42 % (33-45); HEMOGLOBIN 13.4 g/dL (11.5-14.8); LYMPHOCYTES # (AUTO) 1.4 K/uL (0.8-4.8); LYMPHOCYTES % (AUTO) 8.2 % (20.0-44.0); MEAN CORPUSCULAR HGB CONC 32 g/dl (31.0-36.0); MEAN CORPUSCULAR VOLUME 102 fL (82-100); MONOCYTES # (AUTO) 0.9 K/uL (0.1-1.30); MONOCYTES % (AUTO) 5.6 % (2.0-12.0); NEUTROPHILS # (AUTO) 14.1 K/uL (1.8-8.9); NEUTROPHILS % (AUTO) 85.5 % (43.0-81.0); PLATELET COUNT (AUTO) 329 K/uL (150-450); RED BLOOD CELL COUNT(AUTO) 4.14 MIL/uL (4.0-5.2); WHITE BLOOD COUNT (AUTO) 16.5 K/uL (4.3-11.0)
[2022-04-30 14:46] LABS: ABG BASE EXCESS 0.3 mmol/L; ABG PCO2 35.1 mmHg (35.0-45.0); ABG PH 7.449 (7.350-7.450); ABG PO2 144.9 mmHg (75.0-100.0); COHb 0.3 % (0.5-1.5); MetHb 0.4 % (0.0-1.5); O2Hb 98.1 % (94.0-97.0); SITE, ABG Left Radial; VENT MODE, BG 15L O2 NRB
[2022-04-30 14:59] LABS: ALANINE AMINOTRANSFERASE 54 U/L (12-78); ALBUMIN 2.5 g/dL (3.4-5.0); ALKALINE PHOSPHATASE 146 U/L (46-116); ASPARTATE AMINOTRANSFERASE 53 U/L (15-37); BILIRUBIN,DIRECT 0.1 mg/dL (0.0-0.2); BILIRUBIN,TOTAL 0.4 mg/dL (0.2-1.0); CALCIUM, SERUM 9.1 mg/dL (8.5-10.1); CARBON DIOXIDE 24 mmol/L (21-32); CHLORIDE 113 mmol/L (98-107); CREATININE 0.7 mg/dL (0.6-1.3); GLUCOSE 205 mg/dL (74-106); POTASSIUM 3.9 mmol/L (3.5-5.1); SODIUM SERUM 148 mmol/L (136-145); TOTAL PROTEIN, SERUM 7.5 g/dL (6.4-8.2); UREA NITROGEN, BLOOD 40 mg/dL (7-18)
--- NOTE | 2022-04-30 15:03 | NUR ---
MOVE SHEET SUBMITTED.
[2022-04-30 15:34] LABS: BILIRUBIN,URINE NEGATIVE (NEGATIVE); COLOR,URINE YELLOW (YELLOW); LEUKOCYTE ESTERASE ,URINE 2+ (NEGATIVE); NITRITE, URINE NEGATIVE (NEGATIVE); PROTEIN,URINE 1+ mg/dl (NEGATIVE); UGLUCOSE NEGATIVE (NEGATIVE)
[2022-04-30 15:41] LABS: BACTERIA,URINE 2+ /HPF (None Seen); SQUAMOUS EPITHELIAL CELL,UR 0-2 /HPF (None Seen); WBC,URINE 21-50 /HPF (0-3)
[2022-04-30 15:48] LABS: BAND % (MANUAL) 5 % (0.0-5.0); LYMPHOCYTES % (MANUAL) 10 % (16-48); MONOCYTES % (MANUAL) 5 % (0-11.0); NEUTROPHILS % (MANUAL) 80 (42-76)
[2022-04-30] MEDS ORDERED: ACETAMINOPHEN 325 MG TABLET PO PRN (16:00)
[2022-04-30] MEDS ORDERED: MAGNESIUM HYDROXIDE 30 ML UDC PO PRN (16:00)
[2022-04-30] MEDS ORDERED: GLUCERNA 1.2 1,000 ML BOTTLE NG PRN (16:00)
[2022-04-30] MEDS ORDERED: MAG HYDROX/AL HYDROX/SIMETH 30 ML UDC PO PRN (16:00)
[2022-04-30] MEDS ORDERED: HYDROCODONE/APAP 5/325MG TABLET PO PRN (16:00)
[2022-04-30] MEDS ORDERED: ONDANSETRON HCL/PF 4 MG/2 ML VIAL IVP PRN (16:00)
[2022-04-30] MEDS ORDERED: Z GUARD REMEDY 4 OZ OINT TP PRN (16:00)
--- NOTE | 2022-04-30 16:26 | NUR ---
VITAL SIGNS UPDATED.
--- NOTE | 2022-04-30 18:14 | NUR ---
GOT BED 119-1.
--- NOTE | 2022-04-30 18:15 | NUR ---
TRANSFER PT AFTER SHIFT PER NURSING SUP.
--- NOTE | 2022-04-30 18:55 | NUR ---
FLU SWAB DONE AND SENT TO LAB
--- NOTE | 2022-04-30 19:30 | NUR ---
HAND OFF RAOUL JACOB
--- NOTE | 2022-04-30 19:51 | NUR ---
REPORT GIVEN TO SHAWNA JACOB FOR KWAME
--- NOTE | 2022-04-30 20:10 | NUR ---
RN ADMITTING NOTE Received patient from ER via gurney accompanied by Shanique JACOB and EMT Andreas, transferred to bed via 2 person assist. Patient is confused, in no acute distress, saturation at 98% on 10L via simple mask. ST on the monitor HR is 104. IV line at R hand 20g patent and flushing well, started IV fluid of NS at 75 ml/hr per MD order. Comprehensive assessment done, DTI noted at B ears and B feet, referred for wound consult. Gtube in place, clamped. Verified with Dr Amato, may change diet from NPO to NPO except meds as patient has meds which needs to be given via gtube. Will continue to monitor and carry out MD orders.
[2022-04-30 20:25] VITALS: BP 97/62
[2022-04-30] MEDS: IV NS 0.9% 1,000 ML IV PRN (20:30)
[2022-04-30] MEDS: PHENYTOIN SUSP UDC 100 MG/4 ML UDC GT SCH (20:53)
[2022-04-30] MEDS: CEFEPIME 1 GM in IV D5W 50 ML IV SCH (20:53)
[2022-04-30] MEDS: LEVETIRACETAM SOL (5 ML) 100 MG/ML UDC GT SCH (20:53)
[2022-04-30] MEDS: VALPROIC ACID 250 MG/5 ML UDC GT SCH (20:53)
[2022-04-30] MEDS: TOPIRAMATE 100 MG TABLET GT SCH (20:54)
[2022-04-30] MEDS: ENOXAPARIN SODIUM 40 MG/0.4 ML DISP.SYRIN SQ SCH (20:55)
[2022-05-01] VITALS: BP 109/61
[2022-05-01] MEDS: VANCOMYCIN 0.75 GM in IV D5W 250 ML IV SCH ×2 (02:59→14:50)
[2022-05-01 04:00] VITALS: BP 103/65
[2022-05-01] MEDS: VALPROIC ACID 250 MG/5 ML UDC GT SCH ×3 (05:50→20:54)
[2022-05-01 07:29] LABS: CALCIUM, SERUM 8.5 mg/dL (8.5-10.1); CREATININE 0.4 mg/dL (0.6-1.3); MAGNESIUM 2.2 mg/dL (1.8-2.4); PHOSPHORUS 2.1 mg/dL (2.5-4.9); POTASSIUM 3.4 mmol/L (3.5-5.1)
[2022-05-01 07:32] LABS: BASOPHILS # (AUTO) 0.1 K/uL (0.0-0.2); BASOPHILS % (AUTO) 0.5 % (0.0-2.0); HEMATOCRIT 34 % (33-45); HEMOGLOBIN 10.7 g/dL (11.5-14.8); LYMPHOCYTES # (AUTO) 2.6 K/uL (0.8-4.8); LYMPHOCYTES % (AUTO) 14.3 % (20.0-44.0); MEAN CORPUSCULAR HGB CONC 32 g/dl (31.0-36.0); MEAN CORPUSCULAR VOLUME 102 fL (82-100); MONOCYTES # (AUTO) 1.1 K/uL (0.1-1.30); MONOCYTES % (AUTO) 6.2 % (2.0-12.0); NEUTROPHILS # (AUTO) 14.4 K/uL (1.8-8.9); PLATELET COUNT (AUTO) 253 K/uL (150-450); RED BLOOD CELL COUNT(AUTO) 3.29 MIL/uL (4.0-5.2); WHITE BLOOD COUNT (AUTO) 18.2 K/uL (4.3-11.0)
--- NOTE | 2022-05-01 07:35 | NUR ---
HAWA RN notes Received patient in bed, resting without active complaint. SpO2 95% with 2L oxygen via NC. Telemetry showed SR 77bpm. R hand IV site is intact and dry, without redness and infiltration, NS running at 75mL/hr. All needs attended at the moment. Call nichole is placed near patient. Bed was locked and set at the lowest position. Safety measures are implemented. Will continue to monitor.
[2022-05-01 08:00] VITALS: BP 99/61
[2022-05-01] MEDS: PHENYTOIN SUSP UDC 100 MG/4 ML UDC GT SCH ×2 (08:10→16:57)
[2022-05-01] MEDS: TOPIRAMATE 100 MG TABLET GT SCH ×2 (08:10→20:54)
[2022-05-01] MEDS: PANTOPRAZOLE 40 MG/PACK PACK GT SCH (08:10)
[2022-05-01] MEDS: CEFEPIME 1 GM in IV D5W 50 ML IV SCH (08:15)
[2022-05-01] MEDS: LEVETIRACETAM SOL (5 ML) 100 MG/ML UDC GT SCH ×2 (08:55→16:57)
[2022-05-01] MEDS ORDERED: POTASSIUM CHLORIDE 20 MEQ POWDER PACKET GT ONE (11:00)
[2022-05-01] MEDS ORDERED: NEUTRA PHOS 1 POWD.PACKET PO ONE (11:00)
[2022-05-01] MEDS ORDERED: POTASSIUM CL. PREMIX PERIPHER. 50 ML IV SCH (11:00)
[2022-05-01] MEDS: IV NS 0.9% 1,000 ML IV PRN (11:25)
--- NOTE | 2022-05-01 11:30 | NUR ---
HAWA RN NOTE KEEP CLEAN DRY ,TURN REPOSITIO, CONT ON IVF ORDERED
[2022-05-01 12:00] VITALS: BP 102/65
--- NOTE | 2022-05-01 15:08 | NUR ---
HAWA RN NOTE PER DR MELENDEZ OK TO START G TUBE FEEDING ,WILL F\U
[2022-05-01] MEDS: GLUCERNA 1.2 1,000 ML BOTTLE GT PRN (15:15)
[2022-05-01] MEDS: IV 1/2NS 1000 ML 1,000 ML IV PRN (15:36)
[2022-05-01 16:00] VITALS: BP 102/60
[2022-05-01] MEDS: ENOXAPARIN SODIUM 40 MG/0.4 ML DISP.SYRIN SQ SCH (16:58)
--- NOTE | 2022-05-01 17:21 | NUR ---
HAWA JACOB NOTE SEEN BY THOMAS JACOB SOAP MIXER ID WITH NEW ORDER ATB GIVEN, WILL F\U
--- NOTE | 2022-05-01 18:50 | NUR ---
HAWA RN notes Patient is resting in bed, facial expression is normal and nor in distress. SpO2 95% with 2L oxygen given via nasal cannula, RR WNL. Telemetry showed SR with HR 80/min. Resumed G-tube feeding and tolerated well. Right hand IV site is dry and intact and patent. Call nichole is placed within reach. Bed is locked and placed in lowest position. All safety measures are implemented. Will endorse PM nurse to continue care and monitoring.
--- NOTE | 2022-05-01 20:01 | NUR ---
RN OPENING NOTE PT FOUND IN THE RIGHT LATERAL POSITION AND OBTUNDED. PT IS AROUSABLE TO LIGHT TOUCH. RESPIRATIONS ARE EVEN AND UNLABORED. NO ACTUE SIGNS OF DISTRESS. GT FEEDING IN PROGRESS. BED LOCKED AND AT THE LOWEST LEVEL WITH 2 SIDE RAILS UP. CALL LIGHT WITHIN REACH.
[2022-05-01 21:00] VITALS: BP 92/47
[2022-05-01] MEDS ORDERED: MEROPENEM 1 G in IV NS 0.9% 100 ML IV SCH (21:00)
[2022-05-01] MEDS ORDERED: MEROPENEM 500 MG in IV NS 0.9% 50 ML IV SCH (21:00)
[2022-05-02] VITALS: BP 92/53
[2022-05-02] MEDS: VANCOMYCIN 0.75 GM in IV D5W 250 ML IV SCH ×2 (02:37→15:30)
[2022-05-02] MEDS: VALPROIC ACID 250 MG/5 ML UDC GT SCH ×3 (05:10→21:28)
[2022-05-02] MEDS: MEROPENEM 1 G in IV NS 0.9% 100 ML IV SCH ×3 (05:11→21:27)
[2022-05-02 05:58] VITALS: BP 98/56
--- NOTE | 2022-05-02 07:10 | NUR ---
RN OPENING NOTE PATIENT IN BED ASLEEP, AROUSES TO TACTILE STIMULI, AT ROOM AIR NO SOB/ACUTE DISTRESS NOTED THROUGHOUT THE NIGHT, NSR IN TELE MONITOR, GT FEEDING INFUSING ORDERED, NO RESIDUAL NOTED, PATIENT TOLERATED WELL, ON ASPIRATION PRECAUTIONS, HOB ELEVATED AT ALL TIMES, NO EPISODES OF ASPIRATION NOTED, OTHERWISE NO SIGNIFICANT CHANGE IN CONDITION DURING THE NIGHT, BED LOCKED AND IN LOWEST POSITION, CALL LIGHT WITHIN REACH, WILL ENDORSE CONTINUITY OF CARE TO ONCOMING NURSE.
[2022-05-02 07:20] LABS: BASOPHILS # (AUTO) 0.1 K/uL (0.0-0.2); BASOPHILS % (AUTO) 0.7 % (0.0-2.0); EOSINOPHILS % (AUTO) 0.1 % (0.0-6.0); HEMATOCRIT 28 % (33-45); HEMOGLOBIN 9.2 g/dL (11.5-14.8); LYMPHOCYTES # (AUTO) 1.2 K/uL (0.8-4.8); LYMPHOCYTES % (AUTO) 10.9 % (20.0-44.0); MEAN CORPUSCULAR HGB CONC 32 g/dl (31.0-36.0); MEAN CORPUSCULAR VOLUME 103 fL (82-100); MONOCYTES # (AUTO) 0.6 K/uL (0.1-1.30); MONOCYTES % (AUTO) 5.8 % (2.0-12.0); NEUTROPHILS # (AUTO) 9.2 K/uL (1.8-8.9); NEUTROPHILS % (AUTO) 82.5 % (43.0-81.0); PLATELET COUNT (AUTO) 211 K/uL (150-450); RED BLOOD CELL COUNT(AUTO) 2.76 MIL/uL (4.0-5.2); WHITE BLOOD COUNT (AUTO) 11.1 K/uL (4.3-11.0)
--- NOTE | 2022-05-02 07:30 | NUR ---
TD RN AM NOTE PATIENT IN BED, ASLEEP, OPENS EYES TO TOUCH AND VOICE. FLAT AFFECT, ON 2 L O2 NASAL CANULA O2 SAT 92%AROUSES TO TACTILE STIMULI, AT ROOM AIR NO SOB/ACUTE DISTRESS NOTED THROUGHOUT THE NIGHT, NSR IN TELE MONITOR, GT FEEDING INFUSING ORDERED 75 ML/HR ON 1500 OFF 1100, NO RESIDUAL NOTED, PLACEMENT CHECKED. WELL TOLERATED, ON ASPIRATION PRECAUTIONS, HOB ELEVATED UP 30 DEG AT ALL TIMES, BED LOCKED AND IN LOWEST POSITION, CALL LIGHT WITHIN REACH, ALL NEEDS ANTICIPATED, WILL WONT TO MONITOR.
[2022-05-02 07:48] LABS: ALBUMIN 1.9 g/dL (3.4-5.0); BILIRUBIN,TOTAL 0.2 mg/dL (0.2-1.0); CALCIUM, SERUM 8.4 mg/dL (8.5-10.1); CREATININE 0.5 mg/dL (0.6-1.3); MAGNESIUM 2.1 mg/dL (1.8-2.4); POTASSIUM 3.2 mmol/L (3.5-5.1); TOTAL PROTEIN, SERUM 5.9 g/dL (6.4-8.2)
[2022-05-02 08:00] VITALS: BP 97/60
[2022-05-02] MEDS: PHENYTOIN SUSP UDC 100 MG/4 ML UDC GT SCH ×2 (09:02→17:03)
[2022-05-02] MEDS: TOPIRAMATE 100 MG TABLET GT SCH ×2 (09:02→21:28)
[2022-05-02] MEDS: LEVETIRACETAM SOL (5 ML) 100 MG/ML UDC GT SCH ×2 (09:02→17:03)
[2022-05-02] MEDS: PANTOPRAZOLE 40 MG/PACK PACK GT SCH (09:02)
[2022-05-02] MEDS: IV 1/2NS 1000 ML 1,000 ML IV PRN (09:05)
--- NOTE | 2022-05-02 09:30 | NUR ---
RN NOTES DUE MEDS GIVEN
[2022-05-02] MEDS ORDERED: POTASSIUM CHLORIDE 20 MEQ POWDER PACKET GT SCH (10:00)
[2022-05-02] MEDS ORDERED: NEUTRA PHOS 1 POWD.PACKET GT ONE (10:00)
[2022-05-02 12:00] VITALS: BP 103/64
[2022-05-02 16:00] VITALS: BP 92/56
[2022-05-02] MEDS: ENOXAPARIN SODIUM 40 MG/0.4 ML DISP.SYRIN SQ SCH (17:04)
--- NOTE | 2022-05-02 18:21 | NUR ---
TD RN CLOSING NOTE PATIENT IN BED, ASLEEP, OPENS EYES TO TOUCH AND VOICE. FLAT AFFECT, ON 2 L O2 NASAL CANULA O2 SAT 97%AROUSES TO TACTILE STIMULI, NO SOB/ACUTE DISTRESS NOTED THROUGHOUT THE NIGHT, NSR IN TELE MONITOR,NO SIGNS OF PAIN/GRIMACING. GT FEEDING INFUSING ORDERED 75 ML/HR ON 1500 OFF 1100, NO RESIDUAL NOTED, PLACEMENT CHECKED. WELL TOLERATED, ON ASPIRATION PRECAUTIONS, HOB ELEVATED UP 30 DEG AT ALL TIMES, BED LOCKED AND IN LOWEST POSITION, CALL LIGHT WITHIN REACH, ALL NEEDS MET AT THIS TIME. PM CARE DONE. TURNED AND REPOSITIONED Q 2 HOURS. WILL ENDORSE TO NEXT SHIFT FOR KWAME.
--- NOTE | 2022-05-02 19:56 | NUR ---
RN OPENING NOTE PT IN BED LYING SUPINE. UNABLE TO ASSESS LOC DUE TO BEING OBTUNDED AND NONVERBAL. PT AROUSABLE TO LIGHT TOUCH. PT ON NC @ 2LPM AND TOLERATING WELL. NO ACUTE SIGNS OF DISTRESS. BED LOCKED AND AT LOWEST POSITION. BED ALARM ON WITH 2 SIDE RAILS UP. CALL LIGHT WITHIN REACH.
[2022-05-02 20:00] VITALS: BP 92/56
[2022-05-03] VITALS: BP 97/59
[2022-05-03] MEDS: VANCOMYCIN 0.75 GM in IV D5W 250 ML IV SCH (02:27)
[2022-05-03 04:00] VITALS: BP 95/58
[2022-05-03] MEDS: MEROPENEM 1 G in IV NS 0.9% 100 ML IV SCH ×3 (04:27→21:37)
[2022-05-03] MEDS: VALPROIC ACID 250 MG/5 ML UDC GT SCH ×3 (04:28→21:37)
--- NOTE | 2022-05-03 06:59 | NUR ---
RN CLOSING NOTE, PATIENT IN BED AWAKE, AT ROOM AIR NO SOB/ACUTE DISTRESS NOTED THROUGHOUT THE NIGHT, NSR IN TELE MONITOR, GT FEEDING INFUSING ORDERED, NO RESIDUAL NOTED, PATIENT TOLERATED WELL, ON STRICT ASPIRATION PRECAUTIONS, HOB ELEVATED AT ALL TIMES, BIG BOWEL MOVEMENT THIS MORNING, OTHERWISE NO SIGNIFICANT CHANGE IN CONDITION DURING THE NIGHT, BED LOCKED AND IN LOWEST POSITION, CALL LIGHT WITHIN REACH, WILL ENDORSE CONTINUITY OF CARE TO ONCOMING NURSE.
--- NOTE | 2022-05-03 07:30 | NUR ---
TD RN AM NOTE PATIENT IN BED, ASLEEP, OPENS EYES TO TOUCH AND VOICE. FLAT AFFECT, ON 2 L O2 NASAL CANULA O2 SAT 92%, NO SOB/ACUTE DISTRESS, NSR ON MONITOR, RT HAND 20G WITH 1/2 NS AT 75 ML/HR INFUSING WELL, SITE CLEAR. WITH GT FEEDING INFUSING ORDERED 75 ML/HR ON 1500 OFF 1100, NO RESIDUAL NOTED, PLACEMENT CHECKED. WELL TOLERATED, ON ASPIRATION PRECAUTIONS, HOB ELEVATED 30 DEG AT ALL TIMES, BED LOCKED AND IN LOWEST POSITION, CALL LIGHT WITHIN REACH, ALL NEEDS ANTICIPATED, WILL WONT TO MONITOR. Addendum: 05/03/22 at 1535 by BOBY FLORES RN addendum: JIMENEZ CATH IN PLACE FOR URINE RETENTION.
[2022-05-03 07:50] LABS: ALBUMIN 1.6 g/dL (3.4-5.0); BILIRUBIN,TOTAL 0.1 mg/dL (0.2-1.0); CALCIUM, SERUM 8.3 mg/dL (8.5-10.1); CREATININE 0.4 mg/dL (0.6-1.3); PHOSPHORUS 2.6 mg/dL (2.5-4.9); POTASSIUM 3.7 mmol/L (3.5-5.1); TOTAL PROTEIN, SERUM 5.4 g/dL (6.4-8.2)
[2022-05-03 08:00] VITALS: BP 96/60
[2022-05-03 08:26] LABS: BASOPHILS % (AUTO) 0.3 % (0.0-2.0); EOSINOPHILS % (AUTO) 1.2 % (0.0-6.0); HEMATOCRIT 28 % (33-45); HEMOGLOBIN 9.2 g/dL (11.5-14.8); LYMPHOCYTES # (AUTO) 1.7 K/uL (0.8-4.8); LYMPHOCYTES % (AUTO) 21.9 % (20.0-44.0); MEAN CORPUSCULAR HGB CONC 33 g/dl (31.0-36.0); MEAN CORPUSCULAR VOLUME 101 fL (82-100); MONOCYTES # (AUTO) 0.5 K/uL (0.1-1.30); MONOCYTES % (AUTO) 6.1 % (2.0-12.0); NEUTROPHILS # (AUTO) 5.4 K/uL (1.8-8.9); NEUTROPHILS % (AUTO) 70.5 % (43.0-81.0); PLATELET COUNT (AUTO) 211 K/uL (150-450); RED BLOOD CELL COUNT(AUTO) 2.78 MIL/uL (4.0-5.2); WHITE BLOOD COUNT (AUTO) 7.6 K/uL (4.3-11.0)
[2022-05-03] MEDS: PANTOPRAZOLE 40 MG/PACK PACK GT SCH (09:06)
[2022-05-03] MEDS: LEVETIRACETAM SOL (5 ML) 100 MG/ML UDC GT SCH ×2 (09:07→16:38)
[2022-05-03] MEDS: TOPIRAMATE 100 MG TABLET GT SCH ×2 (09:08→21:37)
[2022-05-03] MEDS: PHENYTOIN SUSP UDC 100 MG/4 ML UDC GT SCH ×2 (09:08→16:37)
--- NOTE | 2022-05-03 09:30 | NUR ---
RN NOTES DUE MEDS GIVEN
[2022-05-03 12:00] VITALS: BP 97/58
[2022-05-03] MEDS: VANCOMYCIN 1 GM in IV D5W 250ml IV SCH (15:19)
[2022-05-03 16:00] VITALS: BP 88/58
[2022-05-03] MEDS: ENOXAPARIN SODIUM 40 MG/0.4 ML DISP.SYRIN SQ SCH (16:41)
--- NOTE | 2022-05-03 18:18 | NUR ---
COMPLAINTS COORDINATOR CLOSING NOTE PATIENT IN BED, ASLEEP, OPENS EYES TO TOUCH AND VOICE. FLAT AFFECT, ON 2 L O2 NASAL CANULA O2 SAT 97%AROUSES TO TACTILE STIMULI, NO SOB/ACUTE DISTRESS, NSR IN TELE MONITOR,NO SIGNS OF PAIN/GRIMACING. GT FEEDING INFUSING ORDERED 75 ML/HR ON 1500 OFF 1100, NO RESIDUAL NOTED, PLACEMENT CHECKED. WELL TOLERATED, JIMENEZ CATH IN PLACE WITH 450 ML TOTAL OUTPUT. ON ASPIRATION PRECAUTIONS, HOB ELEVATED UP 30 DEG AT ALL TIMES, BED LOCKED AND IN LOWEST POSITION, CALL LIGHT WITHIN REACH, ALL NEEDS MET AT THIS TIME. PM CARE DONE. TURNED AND REPOSITIONED Q 2 HOURS. WILL ENDORSE TO NEXT SHIFT FOR KWAME.
[2022-05-03 20:00] VITALS: BP 97/58
[2022-05-04] VITALS: BP 96/52
[2022-05-04] MEDS: VANCOMYCIN 1 GM in IV D5W 250ml IV SCH ×2 (02:42→15:03)
[2022-05-04] MEDS: GLUCERNA 1.2 1,000 ML BOTTLE GT PRN (02:58)
[2022-05-04 04:00] VITALS: BP 98/66
[2022-05-04] MEDS: MEROPENEM 1 G in IV NS 0.9% 100 ML IV SCH ×3 (05:06→20:29)
[2022-05-04] MEDS: VALPROIC ACID 250 MG/5 ML UDC GT SCH ×3 (05:06→20:29)
[2022-05-04] MEDS: IV 1/2NS 1000 ML 1,000 ML IV PRN ×2 (05:09→19:04)
--- NOTE | 2022-05-04 06:40 | NUR ---
RN CLOSING NOTES: PATIENT IN BED, ASLEEP, BUT EASILY AROUSABLE, OPENS BOTH EYES. NON-VERBAL. O2 AT 2 L/MIN VIA N/C AND PT TOLERATED WELL. O2 SAT 93%. IV ACCESS ON RT HAND#20G AND LT HAND #22G INTACT AND PATENT. NO S/S OF INFILTRATIONS. RUNNING 1/2 NS AT 75CC/HR. GT FEEDING WELL TOLERATED. NO RESIDUAL NOTED. RUNNING GLUCERNA 1.2 AT 75CC/HR. JIMENEZ CATH IN PLACE, DRAINING BY GRAVITY. ALL DUE MEDS GIVEN ORDERED. ALL SAFETY MEASURES IN PLACE. BED IN LOWEST POSITION AND LOCKED. SIDE RAILS UP X3, PLACE CALL LIGHT WITHIN REACH. WILL ENDORSE TO MORNING SHIFT NURSE.
--- NOTE | 2022-05-04 07:10 | NUR ---
RN OPENING NOTE RECEIVED PATIENT IN BED AWAKE, OPEN HER EYES, ON OXYGEN 2L/MIN VUA NASAL CANNULA, NO SOB/ACUTE DISTRESS NOTED , NSR IN TELE MONITOR, GT FEEDING INFUSING ORDERED, NO RESIDUAL NOTED, PATIENT TOLERATED WELL, ON ASPIRATION PRECAUTIONS, HOB ELEVATED AT ALL TIMES, BED LOCKED AND IN LOWEST POSITION, CALL LIGHT WITHIN REACH, WILL MONITOR.
[2022-05-04 07:21] LABS: BASOPHILS % (AUTO) 0.5 % (0.0-2.0); EOSINOPHILS % (AUTO) 1.9 % (0.0-6.0); HEMATOCRIT 29 % (33-45); HEMOGLOBIN 9.4 g/dL (11.5-14.8); LYMPHOCYTES # (AUTO) 1.3 K/uL (0.8-4.8); MEAN CORPUSCULAR HGB CONC 33 g/dl (31.0-36.0); MEAN CORPUSCULAR VOLUME 102 fL (82-100); MONOCYTES # (AUTO) 0.5 K/uL (0.1-1.30); MONOCYTES % (AUTO) 7.1 % (2.0-12.0); NEUTROPHILS # (AUTO) 5.4 K/uL (1.8-8.9); NEUTROPHILS % (AUTO) 73.5 % (43.0-81.0); PLATELET COUNT (AUTO) 236 K/uL (150-450); RED BLOOD CELL COUNT(AUTO) 2.85 MIL/uL (4.0-5.2); WHITE BLOOD COUNT (AUTO) 7.4 K/uL (4.3-11.0)
[2022-05-04 08:00] VITALS: BP 93/57
[2022-05-04 08:20] LABS: ALBUMIN 1.5 g/dL (3.4-5.0); BILIRUBIN,TOTAL 0.1 mg/dL (0.2-1.0); CALCIUM, SERUM 8.3 mg/dL (8.5-10.1); CREATININE 0.4 mg/dL (0.6-1.3); TOTAL PROTEIN, SERUM 5.4 g/dL (6.4-8.2)
[2022-05-04] MEDS: PHENYTOIN SUSP UDC 100 MG/4 ML UDC GT SCH ×2 (08:58→17:02)
[2022-05-04] MEDS: LEVETIRACETAM SOL (5 ML) 100 MG/ML UDC GT SCH ×2 (08:59→17:02)
[2022-05-04] MEDS: TOPIRAMATE 100 MG TABLET GT SCH ×2 (08:59→20:29)
[2022-05-04] MEDS: PANTOPRAZOLE 40 MG/PACK PACK GT SCH (08:59)
--- NOTE | 2022-05-04 11:00 | NUR ---
RN notes: noted pt is due for dilantin 9 am held 7 am and administer dilantin at 9 am and resume feeding at 11 am
[2022-05-04 12:00] VITALS: BP 95/63
[2022-05-04] MEDS ORDERED: GLUCERNA 1.2 1,000 ML BOTTLE GT PRN (14:00)
--- NOTE | 2022-05-04 14:00 | NUR ---
rn notes: spoke to the RD pt has dilantin BID so i have to hold feeding 8 hours a day if she need to adjust feeding said yes with new order to change feeding to glucerna 1.2 at 65 ml/hr x 16 hours
[2022-05-04] MEDS: PROSOURCE / PROSTAT (PYXIS) 30 ML UDC GT SCH ×2 (14:27→17:02)
[2022-05-04 16:00] VITALS: BP 102/64
--- NOTE | 2022-05-04 16:30 | NUR ---
rn notes: pt in bed in stable condition no sob noted. bed bath and complete linen change done
[2022-05-04] MEDS: ENOXAPARIN SODIUM 40 MG/0.4 ML DISP.SYRIN SQ SCH (17:30)
[2022-05-04 18:11] LABS: EOSINOPHILS % (MANUAL) 5 % (0-4); LYMPHOCYTES % (MANUAL) 16 % (16-48); MONOCYTES % (MANUAL) 6 % (0-11.0); NEUTROPHILS % (MANUAL) 73 (42-76)
--- NOTE | 2022-05-04 19:25 | NUR ---
RN OPENING NOTE RECEIVED PT IN BED ASLEEP, OBTUNDED, ON 2L VIA NC, TOLERATING WELL. NO S/S OF ACUTE DISTRESS,TELE MONITOR READING SR.IV ACCESS RH #20G RUNNING 1/2 @75ML/H AND LH #22G S/L. G TUBE INTACT AND PATENT, RUNNING GLUCERNA@65ML/HR. PT HAS JIMENEZ DRAINING CLEAR YELLOW URINE. ALL SAFETY MEASURES IN PLACE, BED ALARM ON, BED IN LOW LOCK POSITION, CALL LIGHT AND TABLE WITHIN EASY REACH, SIDE RAILS UP X2. WILL CONTINUE TO MONITOR THROUGHOUT SHIFT.
--- NOTE | 2022-05-04 19:34 | NUR ---
INTRANET DEVELOPER CLOSING NOTE PATIENT IN BED, ASLEEP, OPENS EYES TO TOUCH AND VOICE. FLAT AFFECT, ON 2 L O2 NASAL CANULA O2 SAT 97%AROUSES TO TACTILE STIMULI, NO SOB/ACUTE DISTRESS NOTED THROUGHOUT THE NIGHT, NSR IN TELE MONITOR,NO SIGNS OF PAIN/GRIMACING. GT FEEDING STARTED AT 1900 AT 65 ML/HR, NO RESIDUAL NOTED, PLACEMENT CHECKED. WELL TOLERATED, ON ASPIRATION PRECAUTIONS, HOB ELEVATED AT ALL TIMES, BED LOCKED AND IN LOWEST POSITION, CALL LIGHT WITHIN REACH, ALL NEEDS MET AT THIS TIME. PM CARE DONE. TURNED AND REPOSITIONED Q 2 HOURS. WILL ENDORSE TO NEXT SHIFT FOR KWAME.
[2022-05-04 20:00] VITALS: BP 94/58
[2022-05-05] VITALS: BP 99/57
[2022-05-05] MEDS: VANCOMYCIN 1 GM in IV D5W 250ml IV SCH (03:40)
[2022-05-05 04:00] VITALS: BP 109/69
[2022-05-05 05:46] LABS: BASOPHILS % (AUTO) 0.7 % (0.0-2.0); EOSINOPHILS % (AUTO) 4.2 % (0.0-6.0); HEMATOCRIT 31 % (33-45); HEMOGLOBIN 9.7 g/dL (11.5-14.8); LYMPHOCYTES # (AUTO) 1.3 K/uL (0.8-4.8); LYMPHOCYTES % (AUTO) 20.1 % (20.0-44.0); MEAN CORPUSCULAR HGB CONC 32 g/dl (31.0-36.0); MEAN CORPUSCULAR VOLUME 102 fL (82-100); MONOCYTES # (AUTO) 0.4 K/uL (0.1-1.30); MONOCYTES % (AUTO) 6.9 % (2.0-12.0); NEUTROPHILS # (AUTO) 4.4 K/uL (1.8-8.9); NEUTROPHILS % (AUTO) 68.1 % (43.0-81.0); PLATELET COUNT (AUTO) 260 K/uL (150-450); RED BLOOD CELL COUNT(AUTO) 3.01 MIL/uL (4.0-5.2); WHITE BLOOD COUNT (AUTO) 6.5 K/uL (4.3-11.0)
[2022-05-05 05:54] LABS: CALCIUM, SERUM 8.5 mg/dL (8.5-10.1); CREATININE 0.3 mg/dL (0.6-1.3); POTASSIUM 4.1 mmol/L (3.5-5.1)
[2022-05-05] MEDS: MEROPENEM 1 G in IV NS 0.9% 100 ML IV SCH ×2 (06:17→12:59)
[2022-05-05] MEDS: VALPROIC ACID 250 MG/5 ML UDC GT SCH ×2 (06:17→12:59)
--- NOTE | 2022-05-05 07:11 | NUR ---
RN CLOSING NOTE PT IN BED ASLEEP, OBTUNDED, ON 2L VIA NC, TOLERATING WELL. NO S/S OF ACUTE DISTRESS,TELE MONITOR READING SR.IV ACCESS RH #20G RUNNING 1/2 @75ML/H AND LH #22G S/L. G TUBE INTACT AND PATENT, NOT CURRENTL;Y RUNNING, BEING HELD FOR MEDICATION PER PERAMETERS.. PT HAS JIMENEZ DRAINING CLEAR YELLOW URINE.ALL DUE MEDS GIVEN. ALL SAFETY MEASURES IN PLACE: BED LOCKED IN LOW POSITION, SR UP X 2, BED ALARM ON. HOB ELEVATED. CALL LIGHT WITHIN REACH. WILL ENDORSE TO MORNING SHIFT FOR KWAME.
[2022-05-05 08:00] VITALS: BP 116/71
[2022-05-05] MEDS: LEVETIRACETAM SOL (5 ML) 100 MG/ML UDC GT SCH (09:33)
[2022-05-05] MEDS: TOPIRAMATE 100 MG TABLET GT SCH (09:33)
[2022-05-05] MEDS: PANTOPRAZOLE 40 MG/PACK PACK GT SCH (09:33)
[2022-05-05] MEDS: PHENYTOIN SUSP UDC 100 MG/4 ML UDC GT SCH (09:33)
[2022-05-05] MEDS: PROSOURCE / PROSTAT (PYXIS) 30 ML UDC GT SCH ×2 (09:33→12:59)
[2022-05-05] MEDS ORDERED: MERO1PIG IV (11:08)
[2022-05-05 12:00] VITALS: BP 115/70
--- NOTE | 2022-05-05 14:30 | NUR ---
patient discharged to snf at this time via ambulance in the company of two attendants.
== END 2022-05-05 14:42 | DRG 871 ==
LOC: ER 13:55 → TELE-TD 18:23 → TELE1 05-03 10:48 → MEDSG1 05-05 10:32
PROVIDERS: ATTEND Internal Medicine
DX: A41.9 Sepsis, unspecified organism (principal); E43 Unspecified severe protein-calorie malnutrition; J96.01 Acute respiratory failure with hypoxia; J69.0 Pneumonitis due to inhalation of food and vomit; N17.0 Acute kidney failure with tubular necrosis; D68.59 Other primary thrombophilia; G93.40 Encephalopathy, unspecified; E87.0 Hyperosmolality and hypernatremia; N39.0 Urinary tract infection, site not specified; E86.0 Dehydration; Z20.822 Contact with and (suspected) exposure to COVID-19; F03.90 Unspecified dementia, unspecified severity, without behavioral disturbance, psychotic disturbance, mood disturbance, and anxiety; E78.5 Hyperlipidemia, unspecified; R13.10 Dysphagia, unspecified; Z93.1 Gastrostomy status; E11.9 Type 2 diabetes mellitus without complications; F31.9 Bipolar disorder, unspecified; Z79.4 Long term (current) use of insulin; Z79.899 Other long term (current) drug therapy; Z66 Do not resuscitate; R65.20 Severe sepsis without septic shock; Z87.19 Personal history of other diseases of the digestive system; G40.909 Epilepsy, unspecified, not intractable, without status epilepticus; I25.2 Old myocardial infarction; Z74.09 Other reduced mobility; Z87.440 Personal history of urinary (tract) infections; F29 Unspecified psychosis not due to a substance or known physiological condition
CPT/HCPCS: 36415; 36600; 71045-TC; 80048-TC; 80053-TC; 80076-TC; 80202-TC; 81001; 82803-TC; 83605-TC; 83735-TC; 83880; 84100-TC; 84484-TC; 85025-TC; 85730-TC; 87040-TC; 87081-TC; 87086-TC; 92526; 92611-TC; 94799-TC; A6407; C9803; G0378; J0692; J1650; J1953; J2185; J2543; J3370; J3490; J7030; J7050; J7060

== ENCOUNTER 2022-05-13 07:09 | Inpatient (IN) | payer MEDICARE, OTHER ==
[~2022-05-13] VITALS: Ht 162.6 cm; Wt 59.5 kg
[~2022-05-13 07:09] MED LIST changes: +ALLA266C2 TP; +GEL100GE TD; -HYDR-4076 GT; -MAGN400O6 GT; +MERO1PIG IV; +NUT.237L30 GT; -NUT.237L31 GT; +PETR113O TP; -PIPE3.379 IV; +POVI3780 TP
--- NOTE | 2022-05-13 07:18 | NUR ---
TO ER BED 7, [id number] FOR CHEST CONGESTION AND SHIVERING, GTUBE, NON VERBAL, CONNECTED TO O2 NC 3LPM, CONNECTED TO MONITOR.
--- NOTE | 2022-05-13 07:50 | NUR ---
COVID SWAB DONE AND SENT TO LAB
[2022-05-13] MEDS ORDERED: IV NS 0.9% 1,000 ML BAG IV ONE (08:00)
[2022-05-13] MEDS ORDERED: PIPERACILLIN /TAZOBACTAM 3.375 G in IV D5W 50 ML IV ONE (08:00)
[2022-05-13] MEDS ORDERED: VANCOMYCIN 1 GM in IV D5W 250 ML IV ONE (08:00)
[2022-05-13] MEDS ORDERED: ACETAMINOPHEN 650 MG/SUPP.RECT RC ONE (08:00)
[2022-05-13 08:17] LABS: BASOPHILS # (AUTO) 0.1 K/uL (0.0-0.2); BASOPHILS % (AUTO) 1.3 % (0.0-2.0); EOSINOPHILS % (AUTO) 0.1 % (0.0-6.0); HEMATOCRIT 36 % (33-45); HEMOGLOBIN 11.4 g/dL (11.5-14.8); LYMPHOCYTES # (AUTO) 1.9 K/uL (0.8-4.8); LYMPHOCYTES % (AUTO) 18.1 % (20.0-44.0); MEAN CORPUSCULAR HGB CONC 32 g/dl (31.0-36.0); MEAN CORPUSCULAR VOLUME 103 fL (82-100); MONOCYTES # (AUTO) 0.5 K/uL (0.1-1.30); MONOCYTES % (AUTO) 4.4 % (2.0-12.0); NEUTROPHILS # (AUTO) 8.1 K/uL (1.8-8.9); NEUTROPHILS % (AUTO) 76.1 % (43.0-81.0); PLATELET COUNT (AUTO) 525 K/uL (150-450); RED BLOOD CELL COUNT(AUTO) 3.47 MIL/uL (4.0-5.2); WHITE BLOOD COUNT (AUTO) 10.6 K/uL (4.3-11.0)
--- NOTE | 2022-05-13 08:30 | NUR ---
URINE COLLECTED AND SENT TO LAB
[2022-05-13 08:47] LABS: ALBUMIN 2.4 g/dL (3.4-5.0); BILIRUBIN,DIRECT 0.1 mg/dL (0.0-0.2); BILIRUBIN,TOTAL 0.2 mg/dL (0.2-1.0); TOTAL PROTEIN, SERUM 7.4 g/dL (6.4-8.2)
[2022-05-13 08:51] LABS: CALCIUM, SERUM 9.1 mg/dL (8.5-10.1); CARBON DIOXIDE 24 mmol/L (21-32); CHLORIDE 109 mmol/L (98-107); CREATININE 0.6 mg/dL (0.6-1.3); GLUCOSE 172 mg/dL (74-106); POTASSIUM 3.9 mmol/L (3.5-5.1); SODIUM SERUM 143 mmol/L (136-145); UREA NITROGEN, BLOOD 18 mg/dL (7-18)
[2022-05-13 10:41] LABS: BILIRUBIN,URINE NEGATIVE (NEGATIVE); COLOR,URINE YELLOW (YELLOW); LEUKOCYTE ESTERASE ,URINE 1+ (NEGATIVE); NITRITE, URINE NEGATIVE (NEGATIVE); PH,URINE 6.5 (5.0-8.0); PROTEIN,URINE TRACE mg/dl (NEGATIVE); UGLUCOSE NEGATIVE (NEGATIVE); UROBILINOGEN,URINE 0.2 EU/dL (0.2)
--- NOTE | 2022-05-13 11:59 | NUR ---
GOT BED ASSIGNMENT 312-1 PLEASE GIVE REPORT TO NIDIA DAVIS.
--- NOTE | 2022-05-13 12:16 | NUR ---
REPORT GIVEN TO SUSAN RN ROOM 312-1 FOR KWAME
--- NOTE | 2022-05-13 13:00 | NUR ---
RN NOTE PATIENT CAME TO UNIT FROM ER VIA GURNEY WITH NO SIGNED OF DISTRESS NOTED. V/S TAKEN, STABLE AND RECORDED. SKIN ASSESSMENT DONE AND PICTURES TAKEN. PATIENT AWAKE IN BED RESTING A/O X 0. NO S/S OF PAIN NOTED AT THIS TIME. ON 3L OXYGEN VIA NC, NO DISTRESS OR SHORTNESS OF BREATH NOTED. IV ACCESS L WRIST #20G, R HAND #20G INTACT, PATENT AND FLUSHING WELL. PATIENT WITH EXTERNAL NEWSPAPER DISTRIBUTOR SUPERVISOR WITH CURRENT READING OF SR AND HR OF 82, NO CARDIAC DISTRESS NOTED. PATIENT HAVE A G-TUBE, IN PLACE, FEEDING RUNNING GLUCERNA 1.2 AT 30M ML/HR GOLD 75 ML/HR. WOUND CARE IMPLEMENTED. FALL AND SAFETY MEASURES IN PLACE, BED ALARM ON, BED IN LOW AND LOCK POSITION, CALL LIGHT AND TABLE WITHIN EASY REACH, SIDE RAILS X2. WILL CONTINUE TO MONITOR.
[2022-05-13 13:38] LABS: BACTERIA,URINE Few /HPF (None Seen); SQUAMOUS EPITHELIAL CELL,UR Few /HPF (None Seen); WBC,URINE 21-50 /HPF (0-3)
[2022-05-13] MEDS ORDERED: ONDANSETRON HCL/PF 4 MG/2 ML VIAL IVP PRN (14:00)
[2022-05-13] MEDS ORDERED: Z GUARD REMEDY 4 OZ OINT TP PRN (14:00)
[2022-05-13] MEDS ORDERED: *INSULIN REGULAR(HUMULIN R)HUM 100 UNIT/ML VIAL SQ PRN (14:00)
[2022-05-13] MEDS ORDERED: ACETAMINOPHEN 325 MG TABLET MC PRN (14:00)
[2022-05-13] MEDS ORDERED: DEXTROSE 50%-WATER 50 ML DISP.SYRIN IV PRN ×3 (14:00→14:30)
[2022-05-13] MEDS ORDERED: MAGNESIUM HYDROXIDE 30 ML UDC GT PRN (14:00)
[2022-05-13] MEDS ORDERED: INSULIN REGULAR, HUMAN 100 UNIT/ML 3 ML VIAL SQ PRN ×2 (14:00→14:30)
[2022-05-13] MEDS ORDERED: MAG HYDROX/AL HYDROX/SIMETH 30 ML UDC GT PRN (14:00)
[2022-05-13] MEDS ORDERED: ACETAMINOPHEN 650 MG/20.3 ML UDC GT PRN ×2 (14:30)
[2022-05-13] MEDS ORDERED: GLUCERNA 1.2 1,000 ML BOTTLE NG PRN (15:00)
[2022-05-13] MEDS: PIPERACILLIN /TAZOBACTAM 3.375 G in IV D5W 50 ML IV SCH ×3 (17:04→23:32)
[2022-05-13] MEDS: LEVETIRACETAM SOL (5 ML) 100 MG/ML UDC GT SCH (17:04)
[2022-05-13] MEDS: PHENYTOIN SUSP UDC 100 MG/4 ML UDC GT SCH (17:05)
[2022-05-13] MEDS: BLOOD SUGAR DIAGNOSTIC 1 EACH STRIP IN SCH ×2 (17:05→23:09)
[2022-05-13] MEDS ORDERED: BLOOD SUGAR DIAGNOSTIC 1 EACH STRIP VI SCH (17:30)
[2022-05-13] MEDS ORDERED: BLOOD SUGAR DIAGNOSTIC 1 EACH STRIP IN SCH (18:00)
[2022-05-13 18:49] VITALS: BP 121/70
--- NOTE | 2022-05-13 19:29 | NUR ---
RN CLOSING NOTE PATIENT AWAKE IN BED RESTING A/O X 0. NO S/S OF PAIN NOTED AT THIS TIME. ON 3L OXYGEN VIA NC, NO DISTRESS OR SHORTNESS OF BREATH NOTED. IV ACCESS L WRIST #20G, R HAND #20G INTACT, PATENT AND FLUSHING WELL. PATIENT WITH EXTERNAL REPRESENTATIVE PHLEBOTOMY SERVICES WITH CURRENT READING OF SR AND HR OF 82, NO CARDIAC DISTRESS NOTED. PATIENT HAVE A G-TUBE, IN PLACE, FEEDING RUNNING GLUSERNA 1.2 AT 30M ML/HR GOLD 75 ML/HR. PATIENT WAS TURNED AND REPOSITIONED PER PROTOCOL. WOUND CARE IMPLEMENTED. SCHEDULE MEDICATIONS ADMINISTERED. FALL AND SAFETY MEASURES IN PLACE, BED ALARM ON, BED IN LOW AND LOCK POSITION, CALL LIGHT AND TABLE WITHIN EASY REACH, SIDE RAILS X2. WILL ENDORSE TO ACTIVITIES VOLUNTEER.
--- NOTE | 2022-05-13 19:30 | NUR ---
CASINO BEVERAGE SERVER OPENING NOTE RECEIVED PATIENT IN BED, WITH HOB ELEVATED. NON VERBAL BUT OPENS EYES. AFEBRILE AND NOT IN ANY FORM OF ACUTE DISTRESS. ON O2 INHALATION VIA NASAL CANNULA AT 3LPM. WITH IV ACCESS ON L WRIST 20G RUNNING WITH NS AT 75ML/HR AND R HAND 20G SL. ON G-TUBE FEEDING OF GLUCERNA 1.2 AT 75ML/HR. SAFETY MEASURES IN PLACE. KEPT BED IN LOCKED AND IN LOW POSITION. SIDE RAILS UP X2. CALL LIGHT WITHIN EASY REACH.
[2022-05-13 20:00] VITALS: BP 117/68
[2022-05-13] MEDS: VANCOMYCIN 0.75 GM in IV D5W 250 ML IV SCH (20:11)
[2022-05-13] MEDS: VALPROIC ACID 250 MG/5 ML UDC GT SCH (20:19)
[2022-05-13] MEDS: TOPIRAMATE 100 MG TABLET GT SCH (20:20)
[2022-05-14] VITALS: BP 98/60
[2022-05-14] MEDS: VALPROIC ACID 250 MG/5 ML UDC GT SCH ×3 (04:41→20:24)
[2022-05-14] MEDS: BLOOD SUGAR DIAGNOSTIC 1 EACH STRIP IN SCH ×3 (05:32→17:43)
[2022-05-14] MEDS: INSULIN REGULAR, HUMAN 100 UNIT/ML 3 ML VIAL SQ PRN ×3 (05:36→17:52)
[2022-05-14] MEDS: PIPERACILLIN /TAZOBACTAM 3.375 G in IV D5W 50 ML IV SCH ×3 (05:36→18:00)
[2022-05-14] MEDS: IV NS 0.9% 1,000 ML IV PRN (06:21)
[2022-05-14 06:36] LABS: BASOPHILS # (AUTO) 0.1 K/uL (0.0-0.2); BASOPHILS % (AUTO) 1.1 % (0.0-2.0); EOSINOPHILS % (AUTO) 3.5 % (0.0-6.0); HEMATOCRIT 29 % (33-45); HEMOGLOBIN 9.6 g/dL (11.5-14.8); LYMPHOCYTES # (AUTO) 1.9 K/uL (0.8-4.8); LYMPHOCYTES % (AUTO) 22.6 % (20.0-44.0); MEAN CORPUSCULAR HGB CONC 33 g/dl (31.0-36.0); MEAN CORPUSCULAR VOLUME 102 fL (82-100); MONOCYTES # (AUTO) 0.5 K/uL (0.1-1.30); MONOCYTES % (AUTO) 5.6 % (2.0-12.0); NEUTROPHILS # (AUTO) 5.6 K/uL (1.8-8.9); NEUTROPHILS % (AUTO) 67.2 % (43.0-81.0); PLATELET COUNT (AUTO) 407 K/uL (150-450); RED BLOOD CELL COUNT(AUTO) 2.88 MIL/uL (4.0-5.2); WHITE BLOOD COUNT (AUTO) 8.3 K/uL (4.3-11.0)
--- NOTE | 2022-05-14 06:44 | NUR ---
SAND AND GRAVEL PLANT OPERATOR CLOSING NOTE PATIENT IN BED, WITH HOB ELEVATED. NON VERBAL BUT OPENS EYES UPON STIMULI. AFEBRILE AND NOT IN ANY FORM OF ACUTE DISTRESS. ON O2 INHALATION VIA NASAL CANNULA AT 3LPM. ON TELE MONITORING SR 76. WITH IV ACCESS ON L WRIST 20G RUNNING WITH NS AT 75ML/HR AND R HAND 20G SL. WITH INTACT G-TUBE, FEEDING OF GLUCERNA 1.2 AT 75ML/HR. NO RESIDUAL NOTED. MONITORED FOR ANY S/SX. OF HYPO/HYPERGLYCEMIA. MEDICATED ORDERED. ON IV ATB FOR UTI, MONITORED FOR ANY ADVERSE REACTION. SAFETY MEASURES IN PLACE. KEPT BED IN LOCKED AND IN LOW POSITION. SIDE RAILS UP X2. CALL LIGHT WITHIN EASY REACH. ALL NURSING NEEDS ATTENDED. ENDORSED TO INCOMING SHIFT FOR CONTINUITY OF CARE.
[2022-05-14 07:09] LABS: BILIRUBIN,TOTAL 0.1 mg/dL (0.2-1.0); CALCIUM, SERUM 8.7 mg/dL (8.5-10.1); CREATININE 0.5 mg/dL (0.6-1.3); PHOSPHORUS 2.7 mg/dL (2.5-4.9); POTASSIUM 3.4 mmol/L (3.5-5.1); TOTAL PROTEIN, SERUM 6.1 g/dL (6.4-8.2)
--- NOTE | 2022-05-14 07:30 | NUR ---
WHEAT INSPECTOR OPENING NOTE RECEIVED PATIENT IN BED, ASLEEP. NON VERBAL BUT OPENS EYES, RESPONDS TO TACTILE STIMULI. AFEBRILE, NO S/S OF ACUTE DISTRESS, NO S/S OF PAIN NOTED VIA FLACC. ON 3L OF O2 VIA NC, TOLERATING WELL, NO S/S OF SOB NOTED. IV ACCESS ON L WRIST 20G RUNNING WITH NS AT 75ML/HR AND R HAND 20G SL, PATENT AND INTACT. G-TUBE FEEDING OF GLUCERNA 1.2 CURRENTLY AT 50ML/HR, WILL ADVANCE TO 75ML/HR TOLERATED DURING SHIFT. SAFETY MEASURES IN PLACE. KEPT BED IN LOCKED AND IN LOW POSITION. SIDE RAILS UP X2. CALL LIGHT WITHIN EASY REACH, WILL CONT WITH PLAN OF CARE DURING SHIFT.
[2022-05-14 08:00] VITALS: BP 122/61
[2022-05-14] MEDS: PHENYTOIN SUSP UDC 100 MG/4 ML UDC GT SCH ×2 (08:07→16:31)
[2022-05-14] MEDS: POLYETHYLENE GLYCOL 3350 17 GM POWD.PACK GT SCH (08:07)
[2022-05-14] MEDS: POTASSIUM CL. PREMIX PERIPHER. 50 ML IV SCH ×4 (08:07→11:32)
[2022-05-14] MEDS: ACETAMINOPHEN 650 MG/20.3 ML UDC GT SCH (08:08)
[2022-05-14] MEDS: LEVETIRACETAM SOL (5 ML) 100 MG/ML UDC GT SCH ×2 (08:08→16:31)
[2022-05-14] MEDS: PANTOPRAZOLE 40 MG/PACK PACK GT SCH (08:09)
[2022-05-14] MEDS: TOPIRAMATE 100 MG TABLET GT SCH ×2 (08:09→20:23)
[2022-05-14] MEDS: VANCOMYCIN 0.75 GM in IV D5W 250 ML IV SCH ×2 (10:26→20:23)
[2022-05-14 12:00] VITALS: BP 98/56
[2022-05-14] MEDS: PROSOURCE / PROSTAT (PYXIS) 30 ML UDC GT SCH ×2 (14:28→17:51)
[2022-05-14] MEDS ORDERED: CT SWABBABLE VALVE TRANS SET 1 EA INFUS.SET MC ONE (15:59)
[2022-05-14] MEDS ORDERED: IV NS 0.9% 250 ML IV ONE (15:59)
[2022-05-14] MEDS ORDERED: IOHEXOL-300 100 ML VIAL IV ONE (15:59)
[2022-05-14 16:00] VITALS: BP 106/62
--- NOTE | 2022-05-14 19:15 | NUR ---
CARDIAC CATH TECHNICIAN CLOSING NOTES: PATIENT IN BED, ASLEEP. NON VERBAL BUT OPENS EYES, RESPONDS TO TACTILE STIMULI. AFEBRILE, NO S/S OF ACUTE DISTRESS, NO S/S OF PAIN NOTED VIA FLACC. ON 2L OF O2 VIA NC, TOLERATING WELL, NO S/S OF SOB NOTED. TELE MONITOR READS SR, HR- 82. IV ACCESS ON L WRIST 20G RUNNING, SL AND R HAND 20G RUNNING NS @ 75ML/HR. G-TUBE FEEDING OF GLUCERNA 1.2 CURRENTLY AT 50ML/HR. SCHEDULED MEDS GIVEN, KEPT CLEAN, DRY AND COMFORTABLE. SAFETY MEASURES IN PLACE. KEPT BED IN LOCKED AND IN LOW POSITION. SIDE RAILS UP X2. CALL LIGHT WITHIN EASY REACH, WILL ENDORSE TO PM SHIFT.
--- NOTE | 2022-05-14 19:43 | NUR ---
RN OPENING NOTES RECEIVED PT IN BED, ASLEEP, AWAKENS TO VERBAL STIMULI. AOx0, NONVERBAL BUT OPENS EYES. ON NC 2LPM AND TOLERATING WELL. NO SOB NOTED. NO S/SX OF RESPIRATORY DISTRESS NOTED.TELE MONITOR DETECTS SINUS RHYTHM. IV ACCESS IN R HAND #20G RUNNING NS @ 75 ML/HR. SAFETY PRECAUTIONS IN PLACE: BED IN LOWEST, LOCKED POSITION, SIDERAILS UPx2, AND BRAKES ON. TABLE AND CALL LIGHT WITHIN REACH. ALL NEEDS MET AT THIS TIME.
[2022-05-14 20:00] VITALS: BP 121/67
[2022-05-14] MEDS ORDERED: ENOXAPARIN SODIUM 100 MG/ML DISP.SYRIN SQ ONE (20:00)
[2022-05-15] VITALS (7 sets, daily range): BP systolic 96–128; BP diastolic 55–76
[2022-05-15] MEDS: INSULIN REGULAR, HUMAN 100 UNIT/ML 3 ML VIAL SQ PRN ×4 (00:34→17:07)
[2022-05-15] MEDS: BLOOD SUGAR DIAGNOSTIC 1 EACH STRIP IN SCH ×4 (00:34→17:06)
[2022-05-15] MEDS: PIPERACILLIN /TAZOBACTAM 3.375 G in IV D5W 50 ML IV SCH ×4 (00:45→17:46)
[2022-05-15] MEDS: VALPROIC ACID 250 MG/5 ML UDC GT SCH ×3 (05:03→20:46)
[2022-05-15] MEDS: GLUCERNA 1.2 1,000 ML BOTTLE NG PRN (05:04)
--- NOTE | 2022-05-15 06:44 | NUR ---
RN CLOSING NOTES PT IN BED, AWAKE, GRUMBLING. AOx0, NONVERBAL BUT OPENS EYES. ON NC 2LPM AND TOLERATING WELL. NO SOB NOTED. NO S/SX OF RESPIRATORY DISTRESS NOTED. TELE MONITOR DETECTS SINUS RHYTHM AND SINUS BRADYCARDIA. IV ACCESS IN R HAND #20G RUNNING NS @ 75 ML/HR. ALL ORDERS CARRIED OUT. ALL NEEDS MET. PT KEPT CLEAN AND DRY. SAFETY PRECAUTIONS IN PLACE: BED IN LOWEST, LOCKED POSITION, SIDERAILS UPx2, AND BRAKES ON. TABLE AND CALL LIGHT WITHIN REACH. WILL ENDORSE TO ONCOMING SHIFT FOR KWAME.
[2022-05-15 07:17] LABS: CALCIUM, SERUM 8.7 mg/dL (8.5-10.1); CREATININE 0.3 mg/dL (0.6-1.3); POTASSIUM 3.7 mmol/L (3.5-5.1)
[2022-05-15 07:22] LABS: BASOPHILS # (AUTO) 0.1 K/uL (0.0-0.2); BASOPHILS % (AUTO) 0.8 % (0.0-2.0); EOSINOPHILS % (AUTO) 4.6 % (0.0-6.0); HEMATOCRIT 32 % (33-45); HEMOGLOBIN 10.4 g/dL (11.5-14.8); LYMPHOCYTES % (AUTO) 31.3 % (20.0-44.0); MEAN CORPUSCULAR HGB CONC 32 g/dl (31.0-36.0); MEAN CORPUSCULAR VOLUME 102 fL (82-100); MONOCYTES # (AUTO) 0.4 K/uL (0.1-1.30); NEUTROPHILS # (AUTO) 3.7 K/uL (1.8-8.9); NEUTROPHILS % (AUTO) 57.3 % (43.0-81.0); PLATELET COUNT (AUTO) 385 K/uL (150-450); RED BLOOD CELL COUNT(AUTO) 3.17 MIL/uL (4.0-5.2); WHITE BLOOD COUNT (AUTO) 6.5 K/uL (4.3-11.0)
--- NOTE | 2022-05-15 07:29 | NUR ---
INSOLE ROUNDER OPENING NOTE RECEIVED PT AWAKE AND RESTING IN BED. PT OPENS EYES TO STIMULI AND NONVERBAL. ON O2 AT 2L/MIN VIA NASAL CANNULA, TOLERATING WELL. NO SOB NOTED. NOT IN ANY SIGN OF RESPIRATORY DISTRESS. ON TELE SMALL CRAFT OPERATOR WITH CURRENT READING OF SINUS RHYTHM, HR 84. NO SIGNS OF CARDIAC DISTRESS NOTED AT THIS TIME. IV ACCESS IN RIGHT HAND G#20, INTACT AND PATENT WITH NS INFUSING AT 75ML/HR. PT'S GTUBE IN PLACE AND PATENT WITH GLUCERNA FEEDING RUNNING AT 50ML/HR. SAFETY MEASURES IN PLACE: BED IN LOWEST AND LOCKED POSITION, SIDE RAILS UPX2, BED ALARM ON, KEPT HOB ELEVATED AND CALL LIGHT WITHIN REACH. WILL CONTINUE TO MONITOR PT.
[2022-05-15] MEDS: VANCOMYCIN 0.75 GM in IV D5W 250 ML IV SCH ×2 (08:25→20:46)
[2022-05-15] MEDS: ACETAMINOPHEN 650 MG/20.3 ML UDC GT SCH (08:52)
[2022-05-15] MEDS: POLYETHYLENE GLYCOL 3350 17 GM POWD.PACK GT SCH (08:52)
[2022-05-15] MEDS: LEVETIRACETAM SOL (5 ML) 100 MG/ML UDC GT SCH ×2 (08:52→17:11)
[2022-05-15] MEDS: PHENYTOIN SUSP UDC 100 MG/4 ML UDC GT SCH ×2 (08:52→17:11)
[2022-05-15] MEDS: TOPIRAMATE 100 MG TABLET GT SCH ×2 (08:53→20:47)
[2022-05-15] MEDS: PROSOURCE / PROSTAT (PYXIS) 30 ML UDC GT SCH ×3 (08:53→17:10)
[2022-05-15] MEDS: ENOXAPARIN SODIUM 100 MG/ML DISP.SYRIN SQ SCH ×2 (08:55→20:48)
[2022-05-15] MEDS: PANTOPRAZOLE 40 MG/PACK PACK GT SCH (08:56)
[2022-05-15] MEDS: IV NS 0.9% 1,000 ML IV PRN (11:22)
--- NOTE | 2022-05-15 19:23 | NUR ---
NURSE STAFF [facility] CLOSING NOTE PT AWAKE AND RESTING IN BED. PT OPENS EYES TO STIMULI AND NONVERBAL. ON O2 AT 2L/MIN VIA NASAL CANNULA, TOLERATING WELL. NO SOB NOTED. NOT IN ANY SIGN OF RESPIRATORY DISTRESS. ON TELE SAP BODS DEVELOPER WITH CURRENT READING OF SINUS RHYTHM, HR 81. NO SIGNS OF CARDIAC DISTRESS NOTED AT THIS TIME. IV ACCESS IN RIGHT HAND G#20, INTACT AND PATENT WITH NS INFUSING AT 75ML/HR. PT'S GTUBE IN PLACE AND PATENT WITH GLUCERNA FEEDING RUNNING AT 50ML/HR. ALL NEEDS ATTENDED. KEPT CLEAN AND COMFORTABLE AT ALL TIMES. TURNED AND REPOSITIONED Q2HRS AND NEEDED. SAFETY MEASURES IN PLACE: BED IN LOWEST AND LOCKED POSITION, SIDE RAILS UPX2, BED ALARM ON, KEPT HOB ELEVATED AND CALL LIGHT WITHIN REACH. ENDORSED TO WEB DEVELOPMENT DIRECTOR NURSE FOR KWAME.
[2022-05-16] MEDS: PIPERACILLIN /TAZOBACTAM 3.375 G in IV D5W 50 ML IV SCH ×2 (00:15→05:50)
[2022-05-16] MEDS: BLOOD SUGAR DIAGNOSTIC 1 EACH STRIP IN SCH ×4 (00:37→17:30)
[2022-05-16] MEDS: INSULIN REGULAR, HUMAN 100 UNIT/ML 3 ML VIAL SQ PRN ×4 (00:37→17:30)
[2022-05-16] MEDS: IV NS 0.9% 1,000 ML IV PRN (03:03)
[2022-05-16 04:29] VITALS: BP 100/54
[2022-05-16] MEDS: VALPROIC ACID 250 MG/5 ML UDC GT SCH ×3 (05:49→21:07)
[2022-05-16] MEDS: GLUCERNA 1.2 1,000 ML BOTTLE NG PRN (05:59)
[2022-05-16 06:20] LABS: CALCIUM, SERUM 8.4 mg/dL (8.5-10.1); CREATININE 0.3 mg/dL (0.6-1.3); POTASSIUM 3.7 mmol/L (3.5-5.1)
--- NOTE | 2022-05-16 06:44 | NUR ---
RN CLOSING NOTES PT IN BED, ASLEEP, AWAKENS TO VERBAL STIMULI. AOx0, NONVERBAL BUT OPENS EYES. ON NC 2LPM AND TOLERATING WELL. NO SOB NOTED. NO S/SX OF RESPIRATORY DISTRESS NOTED.TELE MONITOR DETECTS SINUS RHYTHM. IV ACCESS IN RFA #20G RUNNING NS @ 75 ML/HR. ALL ORDERS CARRIED OUT. ALL NEEDS MET. PT KEPT CLEAN AND DRY. SAFETY PRECAUTIONS IN PLACE: BED IN LOWEST, LOCKED POSITION, SIDERAILS UPx2, AND BRAKES ON. TABLE AND CALL LIGHT WITHIN REACH. WILL ENDORSE TO ONCOMING SHIFT FOR KWAME.
--- NOTE | 2022-05-16 07:33 | NUR ---
PATIENT CARE TECHNICIAN INSTRUCTOR OPENING NOTES PT RECEIVED AWAKE IN BED IN NO ACUTE SIGNS OF DISTRESS. HOB ELEVATED. PT IS NON-VERBAL, OPEN EYES AND RESPONSIVE TO PAIN STIMULI. NO S/S OF PAIN OR ANY DISCOMFORTS OBSERVED AT THIS TIME. ON 02 VIA N/C @ 2LPM, TOLERATING WELL. NO S/S OF SOB OR DISTRESS NOTED. ON TELE MINISTER HELPER WITH CURRENT READING OF SR, HR 74, NO S/S CARDIAC DISTRESS NOTED AT THIS TIME. IV ACCESS IN RFA #20 G INTACT WITH IVF OF NS @ 75ML/HR INFUSING WELL, NO S/S OF INFILTRATION AT SITE NOTED. SAFETY MEASURES IN PLACE: BED IN LOWEST LOCKED POSITION, SIDE RAILS UP X3, BED ALARM ON, KEPT HOB ELEVATED AND CALL LIGHT WITHIN REACH. WILL CONTINUE TO MONITOR PT ACCORDINGLY. Addendum: 05/16/22 at 0819 by VIDAL OLSON RN ADDENDUM: PT WITH G-TUBE IN PLACE WITH ONGOING GTF OF GLUCERNA 1.2 @ 65 ML/HR, TOLERATING WELL. ASPIRATION PRECAUTIONS MAINTAINED.
[2022-05-16] MEDS: VANCOMYCIN 0.75 GM in IV D5W 250 ML IV SCH ×2 (08:22→21:13)
[2022-05-16 08:26] VITALS: BP 112/63
[2022-05-16] MEDS: PHENYTOIN SUSP UDC 100 MG/4 ML UDC GT SCH ×2 (08:35→16:15)
[2022-05-16] MEDS: ENOXAPARIN SODIUM 100 MG/ML DISP.SYRIN SQ SCH ×2 (08:35→21:09)
[2022-05-16] MEDS: TOPIRAMATE 100 MG TABLET GT SCH ×2 (08:36→21:08)
[2022-05-16] MEDS: PROSOURCE / PROSTAT (PYXIS) 30 ML UDC GT SCH ×3 (08:36→16:56)
[2022-05-16] MEDS: LEVETIRACETAM SOL (5 ML) 100 MG/ML UDC GT SCH ×2 (08:36→16:15)
[2022-05-16] MEDS: PANTOPRAZOLE 40 MG/PACK PACK GT SCH (08:36)
[2022-05-16] MEDS: ACETAMINOPHEN 650 MG/20.3 ML UDC GT SCH (08:36)
[2022-05-16] MEDS: POLYETHYLENE GLYCOL 3350 17 GM POWD.PACK GT SCH (08:36)
[2022-05-16 09:06] LABS: BASOPHILS % (AUTO) 0.9 % (0.0-2.0); HEMATOCRIT 30 % (33-45); HEMOGLOBIN 9.7 g/dL (11.5-14.8); LYMPHOCYTES # (AUTO) 1.2 K/uL (0.8-4.8); LYMPHOCYTES % (AUTO) 25.9 % (20.0-44.0); MEAN CORPUSCULAR HGB CONC 33 g/dl (31.0-36.0); MEAN CORPUSCULAR VOLUME 102 fL (82-100); MONOCYTES # (AUTO) 0.4 K/uL (0.1-1.30); MONOCYTES % (AUTO) 7.9 % (2.0-12.0); NEUTROPHILS % (AUTO) 63.3 % (43.0-81.0); PLATELET COUNT (AUTO) 338 K/uL (150-450); RED BLOOD CELL COUNT(AUTO) 2.91 MIL/uL (4.0-5.2); WHITE BLOOD COUNT (AUTO) 4.7 K/uL (4.3-11.0)
--- NOTE | 2022-05-16 10:55 | NUR ---
WOUND CARE CONSULT: PT PRESENTS WITH MULTIPLE WOUNDS INCLUDING STAGE 3 PRESSUREULCER TO SACRUM, RT EAR DEEP TISSUE INJURY, LEFT EAR SCARRING, DRY WOUNDS/ DISCOLORATIONS TO BILATERAL FEET, ALL PRESENT ON ADMISSION. PT HAS LOWER EXTREMITIES CONTRACTED. RECOMMENDATIONS MADE FOR SKIN PROTECTION. DISCUSSED WITH NURSING STAFF. PT IS INCONTINENT. DR TORRES AND DR VILLATORO CALLED FOR SURGICAL /DPM CONSULTS. FIRST STEP LOW AIRLOSS MATTRESS IS ON ORDER. MD IN AGREEMENT WITH PLAN OF CARE. Addendum: 05/16/22 at 1058 by ALFIE FUENTES WNDNU Amended: Links added.
[2022-05-16] MEDS: PIPERACILLIN /TAZOBACTAM 3.375 G in IV D5W 100 ML IV SCH ×2 (14:01→21:54)
[2022-05-16 16:17] VITALS: BP 90/48
--- NOTE | 2022-05-16 16:19 | NUR ---
RN NOTES DR CABRERA ON UNIT THIS MORNING AND REPORTED TO HIM THAT PT HAS POLTS THAT STATED SHE'S DNR. ASKED IF WE'LL FOLLOW THE POLTS AND HE SAID "YES".
--- NOTE | 2022-05-16 17:42 | NUR ---
RN NOTES CALLED [employer] AND LEFT MESSAGE THAT PT NEEDS SPECIALTY MATTRESS ( [employer]).
--- NOTE | 2022-05-16 18:40 | NUR ---
ELECTROMEDICAL EQUIPMENT REPAIRER CLOSING NOTES PT IN BED ASLEEP AT THIS TIME, EASILY AWAKENS TO TACTILE STIMULI. HOB ELEVATED. PT IS NON-VERBAL, OPEN EYES AND RESPONSIVE TO TACTILE/PAIN STIMULI. ON 02 VIA N/C @ 2LPM, TOLERATING WELL. NO S/S OF SOB OR DISTRESS NOTED. ON TELE- MONITOR WITH CURRENT READING OF SR, HR 85, NO S/S CARDIAC DISTRESS NOTED DURING THE DAY. IV ACCESS IN RFA #20 G INTACT WITH IVF OF NS @ 75ML/HR INFUSING WELL, NO S/S OF INFILTRATION AT SITE NOTED. G-TUBE IN PLACE WITH FEEDING OF GLUCERNA 1.2 @ 65 ML/HR IN PROGRESS AND TOLERATING WELL. ASPIRATION PRECAUTIONS MAINTAINED. PT TURNED AND REPOSITIONED Q 2HRS AND PRN. ALL NEEDS AND CARE ANTICIPATED AND MET. SAFETY MEASURES KEPT IN PLACE: BED IN LOWEST LOCKED POSITION, SIDE RAILS UP X3, BED ALARM ON, KEPT HOB ELEVATED AND CALL LIGHT WITHIN REACH. WILL ENDORSE KWAME TO RETAIL SOLAR ADVISOR NURSE.
--- NOTE | 2022-05-16 19:45 | NUR ---
RN OPENING NOTES RECEIVED PT IN BED, ASLEEP, AWAKENS TO VERBAL STIMULI. NONVERBAL BUT OPENS EYES. ON NC 2LPM AND TOLERATING WELL. NO SOB NOTED. NO S/SX OF RESPIRATORY DISTRESS NOTED.TELE MONITOR DETECTS SINUS RHYTHM. IV ACCESS IN RFA #20G RUNNING NS @ 75 ML/HR. SAFETY PRECAUTIONS IN PLACE: BED IN LOWEST, LOCKED POSITION, SIDERAILS UPx2, AND BRAKES ON. TABLE AND CALL LIGHT WITHIN REACH. ALL NEEDS MET AT THIS TIME.
[2022-05-16 20:00] VITALS: BP 89/56
[2022-05-17] VITALS: BP 144/61
[2022-05-17] MEDS: BLOOD SUGAR DIAGNOSTIC 1 EACH STRIP IN SCH ×5 (00:52→23:53)
[2022-05-17] MEDS: INSULIN REGULAR, HUMAN 100 UNIT/ML 3 ML VIAL SQ PRN ×3 (00:53→23:53)
[2022-05-17] MEDS: IV NS 0.9% 1,000 ML IV PRN (01:04)
[2022-05-17 04:00] VITALS: BP 121/70
[2022-05-17] MEDS: PIPERACILLIN /TAZOBACTAM 3.375 G in IV D5W 100 ML IV SCH ×3 (04:50→20:25)
[2022-05-17] MEDS: VALPROIC ACID 250 MG/5 ML UDC GT SCH ×3 (04:51→20:17)
[2022-05-17] MEDS: GLUCERNA 1.2 1,000 ML BOTTLE NG PRN (06:42)
--- NOTE | 2022-05-17 07:06 | NUR ---
PUFFER TENDER OPENING NOTES PT RECEIVED AWAKE IN BED IN NO ACUTE SIGNS OF DISTRESS. PT IS NON-VERBAL, OPEN EYES AND RESPONSIVE TO PAIN STIMULI. NO S/S OF PAIN OR ANY DISCOMFORTS OBSERVED AT THIS TIME. ON 02 VIA N/C @ 2LPM, TOLERATING WELL. NO S/S OF SOB OR DISTRESS NOTED. HAS TUBE FEEDING GLUCERNA @65ML/HR. TOLERATING WELL. ON TELE OPERATOR AUTOMATED PROCESS WITH CURRENT READING OF SR, HR 84, NO S/S CARDIAC DISTRESS NOTED AT THIS TIME. IV ACCESS IN RFA #20 G INTACT WITH IVF OF NS @ 75ML/HR INFUSING WELL AND L FA #22G S/L. NO S/S OF INFILTRATION AT SITE NOTED. SAFETY MEASURES IN PLACE: BED IN LOWEST LOCKED POSITION, SIDE RAILS UP X3, BED ALARM ON, KEPT HOB ELEVATED AND CALL LIGHT WITHIN REACH. WILL CONTINUE TO MONITOR.
--- NOTE | 2022-05-17 07:20 | NUR ---
RN CLOSING NOTES PT IN BED, ASLEEP, AWAKENS TO VERBAL STIMULI. NONVERBAL BUT OPENS EYES. ON NC 2LPM AND TOLERATING WELL. NO SOB NOTED. NO S/SX OF RESPIRATORY DISTRESS NOTED.TELE MONITOR DETECTS SINUS RHYTHM. IV ACCESS IN RFA #20G RUNNING NS @ 75 ML/HR. ALL ORDERS CARRIED OUT. ALL NEEDS MET. PT KEPT CLEAN AND DRY. SAFETY PRECAUTIONS IN PLACE: BED IN LOWEST, LOCKED POSITION, SIDERAILS UPx2, AND BRAKES ON. TABLE AND CALL LIGHT WITHIN REACH. WILL ENDORSE TO ONCOMING SHIFT FOR KWAME.
[2022-05-17 07:26] LABS: CALCIUM, SERUM 7.7 mg/dL (8.5-10.1); CREATININE 0.4 mg/dL (0.6-1.3); MAGNESIUM 1.8 mg/dL (1.8-2.4); PHOSPHORUS 2.5 mg/dL (2.5-4.9); POTASSIUM 3.4 mmol/L (3.5-5.1)
[2022-05-17 07:49] LABS: BASOPHILS # (AUTO) 0.1 K/uL (0.0-0.2); BASOPHILS % (AUTO) 1.1 % (0.0-2.0); EOSINOPHILS % (AUTO) 2.3 % (0.0-6.0); HEMATOCRIT 28 % (33-45); HEMOGLOBIN 9.2 g/dL (11.5-14.8); LYMPHOCYTES # (AUTO) 1.7 K/uL (0.8-4.8); LYMPHOCYTES % (AUTO) 31.7 % (20.0-44.0); MEAN CORPUSCULAR HGB CONC 33 g/dl (31.0-36.0); MEAN CORPUSCULAR VOLUME 101 fL (82-100); MONOCYTES # (AUTO) 0.3 K/uL (0.1-1.30); MONOCYTES % (AUTO) 6.1 % (2.0-12.0); NEUTROPHILS # (AUTO) 3.1 K/uL (1.8-8.9); NEUTROPHILS % (AUTO) 58.8 % (43.0-81.0); PLATELET COUNT (AUTO) 355 K/uL (150-450); RED BLOOD CELL COUNT(AUTO) 2.74 MIL/uL (4.0-5.2); WHITE BLOOD COUNT (AUTO) 5.2 K/uL (4.3-11.0)
[2022-05-17 08:00] VITALS: BP 122/75
[2022-05-17] MEDS: VANCOMYCIN 0.75 GM in IV D5W 250 ML IV SCH ×2 (08:33→20:07)
[2022-05-17] MEDS: PHENYTOIN SUSP UDC 100 MG/4 ML UDC GT SCH ×2 (08:44→16:38)
[2022-05-17] MEDS: LEVETIRACETAM SOL (5 ML) 100 MG/ML UDC GT SCH ×2 (08:44→16:38)
[2022-05-17] MEDS: TOPIRAMATE 100 MG TABLET GT SCH ×2 (08:44→20:17)
[2022-05-17] MEDS: ACETAMINOPHEN 650 MG/20.3 ML UDC GT SCH (08:44)
[2022-05-17] MEDS: PANTOPRAZOLE 40 MG/PACK PACK GT SCH (08:44)
[2022-05-17] MEDS: POLYETHYLENE GLYCOL 3350 17 GM POWD.PACK GT SCH (08:44)
[2022-05-17] MEDS: PROSOURCE / PROSTAT (PYXIS) 30 ML UDC GT SCH ×3 (08:45→16:39)
[2022-05-17] MEDS: ENOXAPARIN SODIUM 100 MG/ML DISP.SYRIN SQ SCH (08:53)
[2022-05-17] MEDS ORDERED: POTASSIUM CHLORIDE 20 MEQ POWDER PACKET GT ONE (11:00)
[2022-05-17 12:00] VITALS: BP 106/59
--- NOTE | 2022-05-17 12:30 | NUR ---
RN NOTES ACCUCHECK COMPLETED, 115 BLOOD SUGAR NO COVERAGE NEEDED. WILL CONTINUE TO MONITOR.
[2022-05-17 16:00] VITALS: BP 100/52
[2022-05-17] MEDS: APIXABAN 5 MG TABLET PO SCH (16:40)
[2022-05-17] MEDS: HYDROGEL DRESSING 90 GM TUBE TP SCH (18:54)
--- NOTE | 2022-05-17 19:00 | NUR ---
LOAN DOCUMENTS CLOSER CLOSING NOTES PATIENT AWAKE IN BED IN NO ACUTE SIGNS OF DISTRESS. PT IS NON-VERBAL, OPEN EYES AND RESPONSIVE TO PAIN STIMULI. NO S/S OF PAIN OR ANY DISCOMFORTS OBSERVED AT THIS TIME. STABLE ON 02 VIA N/C @ 2LPM, TOLERATING WELL. NO S/S OF SOB OR DISTRESS NOTED. HAS TUBE FEEDING GLUCERNA @65ML/HR. TOLERATING WELL. ON TELE LIVESTOCK AGENT WITH CURRENT READING OF SR, HR 84, NO S/S CARDIAC DISTRESS NOTED AT THIS TIME. IV ACCESS IN RFA #20 G INTACT WITH IVF OF NS @ 75ML/HR INFUSING WELL AND L FA #22G S/L. NO S/S OF INFILTRATION AT SITE NOTED. SAFETY MEASURES IN PLACE: BED IN LOWEST LOCKED POSITION, SIDE RAILS UP X3, BED ALARM ON, KEPT HOB ELEVATED AND CALL LIGHT WITHIN REACH. WILL ENDORSE TO NEXT SHIFT ANY KWAME.
--- NOTE | 2022-05-17 19:45 | NUR ---
RN OPENING NOTES RECEIVED PT IN BED, ASLEEP, AWAKENS TO VERBAL STIMULI. NONVERBAL BUT OPENS EYES. ON NC 2LPM AND TOLERATING WELL. NO SOB NOTED. NO S/SX OF RESPIRATORY DISTRESS NOTED.TELE MONITOR DETECTS SINUS RHYTHM. IV ACCESS IN RFA #20G AND LFA #22G. IV IS INTACT, PATENT, AND FLUSHING WELL. SAFETY PRECAUTIONS IN PLACE: BED IN LOWEST, LOCKED POSITION, SIDERAILS UPx2, AND BRAKES ON. TABLE AND CALL LIGHT WITHIN REACH. ALL NEEDS MET AT THIS TIME.
[2022-05-17] MEDS: MUPIROCIN OINT 2% 22 GM TUBE NS SCH (20:26)
[2022-05-17 21:19] VITALS: BP 112/62
[2022-05-18 00:31] VITALS: BP 138/66
[2022-05-18] MEDS: PIPERACILLIN /TAZOBACTAM 3.375 G in IV D5W 100 ML IV SCH ×3 (04:55→21:44)
[2022-05-18] MEDS: VALPROIC ACID 250 MG/5 ML UDC GT SCH ×3 (04:55→20:41)
[2022-05-18] MEDS: BLOOD SUGAR DIAGNOSTIC 1 EACH STRIP IN SCH ×3 (05:20→17:00)
[2022-05-18] MEDS: INSULIN REGULAR, HUMAN 100 UNIT/ML 3 ML VIAL SQ PRN ×2 (05:20→17:01)
[2022-05-18] MEDS: GLUCERNA 1.2 1,000 ML BOTTLE NG PRN (05:21)
--- NOTE | 2022-05-18 06:52 | NUR ---
RN CLOSING NOTES PT IN BED, ASLEEP, AWAKENS TO VERBAL STIMULI. NONVERBAL BUT OPENS EYES. ON NC 2LPM AND TOLERATING WELL. NO SOB NOTED. NO S/SX OF RESPIRATORY DISTRESS NOTED.TELE MONITOR DETECTS SINUS RHYTHM. IV ACCESS IN RFA #20G AND LFA #22G. IV IS INTACT, PATENT, AND FLUSHING WELL. ALL ORDERS CARRIED OUT. ALL NEEDS MET. PT KEPT CLEAN AND DRY. SAFETY PRECAUTIONS IN PLACE: BED IN LOWEST, LOCKED POSITION, SIDERAILS UPx2, AND BRAKES ON. TABLE AND CALL LIGHT WITHIN REACH. WILL ENDORSE TO ONCOMING SHIFT FOR KWAME.
--- NOTE | 2022-05-18 07:25 | NUR ---
RN OPENING NOTE RECEIVED PATIENT IN BED, ASLEEP, AROUSABLE TO VERBAL STIMULI. NONVERBAL BUT OPENS EYES. ON O2 @2LPM VIA N/C, NO SOB NOTED. NO S/SX OF RESPIRATORY DISTRESS NOTED. ON TELE MONITOR SHOWING SINUS RHYTHM, HR @ 80. NOTED WITH IV ACCESS ON RFA #20G AND LFA #22G. IV IS INTACT, PATENT, AND FLUSHING WELL. WITH G-TUBE INTACT AND PATENT,PLACEMENT CHECKED, NO RESIDUAL. FEEDING OF GLUCERNA 1.2 @65ML/HR TOLERATED WELL. SAFETY PRECAUTIONS IN PLACE. BED IN LOWEST AND LOCKED POSITION, SIDE RAILS UPx2. TABLE AND CALL LIGHT WITHIN REACH. WILL CONTINUE TO MONITOR PATIENT.
[2022-05-18 07:58] LABS: BASOPHILS % (AUTO) 0.5 % (0.0-2.0); EOSINOPHILS % (AUTO) 3.1 % (0.0-6.0); HEMATOCRIT 29 % (33-45); HEMOGLOBIN 9.7 g/dL (11.5-14.8); LYMPHOCYTES # (AUTO) 1.3 K/uL (0.8-4.8); LYMPHOCYTES % (AUTO) 30.1 % (20.0-44.0); MEAN CORPUSCULAR HGB CONC 33 g/dl (31.0-36.0); MEAN CORPUSCULAR VOLUME 101 fL (82-100); MONOCYTES # (AUTO) 0.3 K/uL (0.1-1.30); MONOCYTES % (AUTO) 6.9 % (2.0-12.0); NEUTROPHILS # (AUTO) 2.6 K/uL (1.8-8.9); NEUTROPHILS % (AUTO) 59.4 % (43.0-81.0); PLATELET COUNT (AUTO) 370 K/uL (150-450); WHITE BLOOD COUNT (AUTO) 4.4 K/uL (4.3-11.0)
[2022-05-18 08:00] VITALS: BP 97/63
[2022-05-18 08:05] LABS: CALCIUM, SERUM 8.4 mg/dL (8.5-10.1); CREATININE 0.3 mg/dL (0.6-1.3); POTASSIUM 4.1 mmol/L (3.5-5.1)
[2022-05-18] MEDS: VANCOMYCIN 0.75 GM in IV D5W 250 ML IV SCH ×2 (08:29→20:40)
[2022-05-18] MEDS: PHENYTOIN SUSP UDC 100 MG/4 ML UDC GT SCH ×2 (08:30→16:13)
[2022-05-18] MEDS: POLYETHYLENE GLYCOL 3350 17 GM POWD.PACK GT SCH (08:30)
[2022-05-18] MEDS: ACETAMINOPHEN 650 MG/20.3 ML UDC GT SCH (08:30)
[2022-05-18] MEDS: LEVETIRACETAM SOL (5 ML) 100 MG/ML UDC GT SCH ×2 (08:30→16:13)
[2022-05-18] MEDS: PROSOURCE / PROSTAT (PYXIS) 30 ML UDC GT SCH ×3 (08:30→16:11)
[2022-05-18] MEDS: TOPIRAMATE 100 MG TABLET GT SCH ×2 (08:30→20:41)
[2022-05-18] MEDS: PANTOPRAZOLE 40 MG/PACK PACK GT SCH (08:30)
[2022-05-18] MEDS: MUPIROCIN OINT 2% 22 GM TUBE NS SCH ×2 (08:31→21:44)
[2022-05-18] MEDS: HYDROGEL DRESSING 90 GM TUBE TP SCH (08:31)
[2022-05-18] MEDS: APIXABAN 5 MG TABLET PO SCH ×2 (09:00→16:11)
--- NOTE | 2022-05-18 09:49 | NUR ---
RN NOTE ELIQUIS DOSE WITHHELD FOR PROCEDURE.
--- NOTE | 2022-05-18 10:30 | NUR ---
RN NOTE PATIENT PICKED UP FOR PERCUTANEOUS DRAINAGE OF ABSCESS RIGHT HIP VIA BED.
--- NOTE | 2022-05-18 11:35 | NUR ---
RN NOTE PATIENT BACK, S/P RIGHT HIP ASPIRATION OF ABSCESS. WITH 5ML FLUID ASPIRATED, SENT TO LAB. RIGHT HIP SITE NOTED WITH BANDAGE.
[2022-05-18 12:00] VITALS: BP 127/78
[2022-05-18 16:00] VITALS: BP 97/46
--- NOTE | 2022-05-18 18:48 | NUR ---
RN CLOSING NOTE PATIENT IN BED ASLEEP. REMAINS NON-VERBAL. AWAKENS TO VERBAL AND TACTILE STIMULI. NO SIGNS OF ACUTE DISTRESS NOTED. REMAINS ON O2 INHALATION @2LPM VIA N/C. NO SOB NOTED, BREATHING EVEN AND UNLABORED. PERIPHERAL LINES ON RIGHT FORE ARM #20G AND LEFT FORE ARM #22G, INTACT AND PATENT RUNNING NS AT TKO. G-TUBE FEEDING OF GLUCERNA 1.2 @ 65ML/HR TOLERATING WELL. ASPIRATION PRECAUTIONS OBSERVED. ALL DUE MEDS GIVEN. SAFETY MEASURE MAINTAINED. BED IN LOWEST AND LOCKED POSITION. SIDE RAILS UP X2, CALL LIGHT PLACED WITHIN EASY REACH. WILL ENDORSE TO NEXT SHIFT FOR CONTINUITY OF CARE.
--- NOTE | 2022-05-18 19:30 | NUR ---
COREMAKER APPRENTICE OPENING NOTE RECEIVED PATIENT IN BED, WITH HOB ELEVATED, EYES CLOSED BUT EASY TO AROUSE. AFEBRILE AND NOT IN ANY FORM OF ACUTE DISTRESS. ON 02 INHALATION VIA NASAL CANNULA AT 2LPM. ON TELE MONITORING SR-84. WITH IV ACCESS ON LFA 22G AND RFA 20G-SL. WITH INTACT G-TUBE, ON FEEDING OF GLUCERNA 1.5 AT 65ML/HR. SAFETY MEASURES IN PLACE. KEPT BED IN LOCKED AND IN LOW POSITION. SIDE RAILS UP X2. CALL LIGHT WITHIN EASY REACH.
[2022-05-19] MEDS: BLOOD SUGAR DIAGNOSTIC 1 EACH STRIP IN SCH ×5 (00:19→23:58)
[2022-05-19] MEDS: GLUCERNA 1.2 1,000 ML BOTTLE NG PRN (02:27)
[2022-05-19] MEDS: VALPROIC ACID 250 MG/5 ML UDC GT SCH ×3 (04:42→21:15)
[2022-05-19] MEDS: PIPERACILLIN /TAZOBACTAM 3.375 G in IV D5W 100 ML IV SCH ×3 (04:42→21:15)
--- NOTE | 2022-05-19 06:47 | NUR ---
RN CLOSING NOTE PATIENT IN BED, WITH HOB ELEVATED, EYES CLOSED BUT EASY TO AROUSE AND RESPONDS TO VERBAL AND TACTILE STIMULI. AFEBRILE AND NOT IN ANY FORM OF ACUTE DISTRESS. ON 02 INHALATION VIA NASAL CANNULA AT 2LPM. ON TELE MONITORING SR 87. WITH IV ACCESS ON LFA 22G AND RFA 20G-SL. WITH INTACT G-TUBE, ON FEEDING OF GLUCERNA 1.5 AT 65ML/HR. MONITORED FOR ANY S/SX. OF HYPO/HYPERGLYCEMIA. MEDICATED ORDERED. CONTINUOUS ON IV ATB, MONITORED FOR ANY ADVERSE REACTION. MAINTAINED ON CONTACT ISOLATION FOR MRSA (NARES). WOUND CARE DONE DURING THE SHIFT. SAFETY MEASURES IN PLACE. KEPT BED IN LOCKED AND IN LOW POSITION. SIDE RAILS UP X2. CALL LIGHT WITHIN EASY REACH. ALL NURSING NEEDS ATTENDED. ENDORSED TO INCOMING NURSE FOR CONTINUITY OF CARE.
--- NOTE | 2022-05-19 07:08 | NUR ---
ms rn received on bed, awake, nonverbal patient, gtube intact w/ on going feeding at 65ml/hour, respirations even and unlabored,no sob noted, no s/s of pain,repositioned for comfort.
[2022-05-19 07:23] LABS: CALCIUM, SERUM 8.5 mg/dL (8.5-10.1); CREATININE 0.5 mg/dL (0.6-1.3)
[2022-05-19 08:00] VITALS: BP 100/54
[2022-05-19] MEDS: TOPIRAMATE 100 MG TABLET GT SCH ×2 (09:31→21:15)
[2022-05-19] MEDS: PANTOPRAZOLE 40 MG/PACK PACK GT SCH (09:31)
[2022-05-19] MEDS: PHENYTOIN SUSP UDC 100 MG/4 ML UDC GT SCH ×2 (09:31→17:09)
[2022-05-19] MEDS: POLYETHYLENE GLYCOL 3350 17 GM POWD.PACK GT SCH (09:32)
[2022-05-19] MEDS: ACETAMINOPHEN 650 MG/20.3 ML UDC GT SCH (09:32)
[2022-05-19] MEDS: LEVETIRACETAM SOL (5 ML) 100 MG/ML UDC GT SCH ×2 (09:32→17:09)
[2022-05-19] MEDS: APIXABAN 5 MG TABLET PO SCH ×2 (09:33→17:12)
--- NOTE | 2022-05-19 09:40 | NUR ---
ms rn on bed, no distress noted,all needs attended.
[2022-05-19] MEDS: PROSOURCE / PROSTAT (PYXIS) 30 ML UDC GT SCH ×3 (09:48→17:11)
[2022-05-19] MEDS: VANCOMYCIN 0.75 GM in IV D5W 250 ML IV SCH ×2 (09:48→20:06)
[2022-05-19] MEDS: MUPIROCIN OINT 2% 22 GM TUBE NS SCH ×2 (12:31→21:15)
[2022-05-19] MEDS: HYDROGEL DRESSING 90 GM TUBE TP SCH (12:32)
[2022-05-19] MEDS: INSULIN REGULAR, HUMAN 100 UNIT/ML 3 ML VIAL SQ PRN (12:38)
[2022-05-19 16:00] VITALS: BP 98/55
--- NOTE | 2022-05-19 19:30 | NUR ---
LOBSTER CATCHER OPENING NOTE RECEIVED PATIENT IN BED, WITH HOB ELEVATED, AWAKE BUT NON VERBAL. AFEBRILE AND NOT IN ANY FORM OF ACUTE DISTRESS. ON 02 INHALATION VIA NASAL CANNULA AT 2LPM. ON TELE MONITORING SINUS RHYTHM. WITH IV ACCESS ON LFA 22G AND RFA 20G-SL. WITH INTACT G-TUBE, ON FEEDING OF GLUCERNA 1.2 AT 65ML/HR. SAFETY MEASURES IN PLACE. KEPT BED IN LOCKED AND IN LOW POSITION. SIDE RAILS UP X2. CALL LIGHT WITHIN EASY REACH.
[2022-05-19 20:18] VITALS: BP 126/58
[2022-05-20 00:20] VITALS: BP 110/62
[2022-05-20] MEDS: GLUCERNA 1.2 1,000 ML BOTTLE NG PRN (02:03)
[2022-05-20 04:14] VITALS: BP 144/74
[2022-05-20] MEDS: PIPERACILLIN /TAZOBACTAM 3.375 G in IV D5W 100 ML IV SCH ×2 (04:22→12:34)
[2022-05-20] MEDS: VALPROIC ACID 250 MG/5 ML UDC GT SCH ×2 (05:20→12:34)
[2022-05-20] MEDS: BLOOD SUGAR DIAGNOSTIC 1 EACH STRIP IN SCH ×3 (06:11→17:48)
--- NOTE | 2022-05-20 06:30 | NUR ---
APPLIED BEHAVIOR SCIENCE SPECIALIST CLOSING NOTE PATIENT IN BED, WITH HOB ELEVATED, ASLEEP BUT EASY TO AROUSE AND RESPONDS TO VERBAL AND TACTILE STIMULI. AFEBRILE AND NOT IN ANY FORM OF ACUTE DISTRESS. ON 02 INHALATION VIA NASAL CANNULA AT 2LPM. ON TELE MONITORING SINUS RHYTHM SR 95. WITH IV ACCESS ON LFA 22G AND RFA 20G-SL. WITH INTACT G-TUBE, ON FEEDING OF GLUCERNA 1.2 AT 65ML/HR. MEDICATED ORDERED. CONTINUOUS ON IV ATB FOR UTI, MONITORED FOR ANY ADVERSE REACTION. TURNED AND REPOSITIONED EVERY 2 HOURS AND TOLERATED. OFF LOADS HEELS. SAFETY MEASURES IN PLACE. KEPT BED IN LOCKED AND IN LOW POSITION. SIDE RAILS UP X2. CALL LIGHT WITHIN EASY REACH. CONSTANT VISUAL CHECK DONE TO ENSURE SAFETY. ALL NURSING NEEDS ATTENDED. ENDORSED TO INCOMING NURSE FOR CONTINUITY OF CARE.
[2022-05-20 06:51] LABS: BASOPHILS # (AUTO) 0.1 K/uL (0.0-0.2); BASOPHILS % (AUTO) 1.3 % (0.0-2.0); EOSINOPHILS % (AUTO) 2.9 % (0.0-6.0); HEMATOCRIT 32 % (33-45); HEMOGLOBIN 10.3 g/dL (11.5-14.8); LYMPHOCYTES # (AUTO) 2.1 K/uL (0.8-4.8); LYMPHOCYTES % (AUTO) 33.6 % (20.0-44.0); MEAN CORPUSCULAR HGB CONC 32 g/dl (31.0-36.0); MEAN CORPUSCULAR VOLUME 102 fL (82-100); MONOCYTES # (AUTO) 0.5 K/uL (0.1-1.30); MONOCYTES % (AUTO) 7.8 % (2.0-12.0); NEUTROPHILS # (AUTO) 3.4 K/uL (1.8-8.9); NEUTROPHILS % (AUTO) 54.4 % (43.0-81.0); PLATELET COUNT (AUTO) 429 K/uL (150-450); RED BLOOD CELL COUNT(AUTO) 3.18 MIL/uL (4.0-5.2); WHITE BLOOD COUNT (AUTO) 6.2 K/uL (4.3-11.0)
--- NOTE | 2022-05-20 07:20 | NUR ---
RN NOTE RECEIVED PATIENT IN BED RESTING CONFUSED,CONTACTED, NON VERBAL OPEN EYES FOR PAIN STIMULI,ON 2L OXYGEN VIA NASAL CANNULA,O2:98% ON G-TUBE FEEDING WITH IV ACCESS ON LFA 22G AND RFA 20G-SL. WITH INTACT G-TUBE, GLUCERNA 1.2 AT 65ML/HR,CHECKED PLACEMENT IN PLACE NO RESIDUAL NOTED,INCONTINENT BOWEL/BLADDER,SAFETY MEASURE IMPLEMENT BED IN LOW POSITION AND LOCKED,HEAD OF THE BED ELEVATED,CONTINUE TO MONITOR.
[2022-05-20] MEDS: VANCOMYCIN 0.75 GM in IV D5W 250 ML IV SCH (07:31)
[2022-05-20 08:00] VITALS: BP 130/79
[2022-05-20 09:00] LABS: CALCIUM, SERUM 8.9 mg/dL (8.5-10.1); CREATININE 0.5 mg/dL (0.6-1.3); POTASSIUM 3.5 mmol/L (3.5-5.1)
[2022-05-20] MEDS: POLYETHYLENE GLYCOL 3350 17 GM POWD.PACK GT SCH (09:34)
[2022-05-20] MEDS: PHENYTOIN SUSP UDC 100 MG/4 ML UDC GT SCH ×2 (09:34→16:59)
[2022-05-20] MEDS: ACETAMINOPHEN 650 MG/20.3 ML UDC GT SCH (09:34)
[2022-05-20] MEDS: PANTOPRAZOLE 40 MG/PACK PACK GT SCH (09:35)
[2022-05-20] MEDS: LEVETIRACETAM SOL (5 ML) 100 MG/ML UDC GT SCH ×2 (09:35→16:59)
[2022-05-20] MEDS: TOPIRAMATE 100 MG TABLET GT SCH (09:35)
[2022-05-20] MEDS: APIXABAN 5 MG TABLET PO SCH ×2 (09:37→17:01)
[2022-05-20] MEDS: PROSOURCE / PROSTAT (PYXIS) 30 ML UDC GT SCH ×3 (09:38→17:01)
[2022-05-20] MEDS: HYDROGEL DRESSING 90 GM TUBE TP SCH (09:38)
[2022-05-20] MEDS: MUPIROCIN OINT 2% 22 GM TUBE NS SCH (09:38)
[2022-05-20] MEDS ORDERED: CEFE1FRO IV (13:43)
[2022-05-20] MEDS ORDERED: VANC750F2 IV (13:43)
--- NOTE | 2022-05-20 17:00 | NUR ---
RN NOTE PATIENT WILL DISCHARGE TO [facility] REPORT GIVEN TO CINDY JACOB CONTINUE TO MONITOR.
--- NOTE | 2022-05-20 18:40 | NUR ---
FLANGING MACHINE OPERATOR NOTE PATIENT DISCHARGE [facility] WITH ACCOMPANIED BY 3MT FROM ISAIAH CARVER,CONFUSED CONTRACTED ON G-TUBE FEEDING NON VERBAL,OPEN EYES BY PAIN STIMULI.LEFT MESSAGE TO HER SON NOTIFIED OF DISCHARGE.VITAL SIGN IN STABLE CONDITION BP 116/83 HR 88 O2:96% ON 2L OXYGEN VIA NASAL CANNULA,TEMP 97.9
== END 2022-05-20 18:58 | DRG 871 ==
LOC: ER 07:11 → TELE 12:25
PROVIDERS: ADMIT Internal Medicine; ATTEND Internal Medicine
PROC: 0S993ZX Drainage of Right Hip Joint, Percutaneous Approach, Diagnostic (ICD-10-PCS; principal; 2022-05-18)
DX: A41.9 Sepsis, unspecified organism (principal); E43 Unspecified severe protein-calorie malnutrition; G93.41 Metabolic encephalopathy; I82.220 Acute embolism and thrombosis of inferior vena cava; J18.9 Pneumonia, unspecified organism; N39.0 Urinary tract infection, site not specified; J96.11 Chronic respiratory failure with hypoxia; D68.59 Other primary thrombophilia; Z20.822 Contact with and (suspected) exposure to COVID-19; Z66 Do not resuscitate; F03.90 Unspecified dementia, unspecified severity, without behavioral disturbance, psychotic disturbance, mood disturbance, and anxiety; G40.909 Epilepsy, unspecified, not intractable, without status epilepticus; E11.9 Type 2 diabetes mellitus without complications; R13.10 Dysphagia, unspecified; Z93.1 Gastrostomy status; Z86.711 Personal history of pulmonary embolism; F31.9 Bipolar disorder, unspecified; I10 Essential (primary) hypertension; E78.5 Hyperlipidemia, unspecified; Z88.8 Allergy status to other drugs, medicaments and biological substances; F29 Unspecified psychosis not due to a substance or known physiological condition; Z79.4 Long term (current) use of insulin; Z79.899 Other long term (current) drug therapy; K63.89 Other specified diseases of intestine; I25.2 Old myocardial infarction; Z74.09 Other reduced mobility; F19.90 Other psychoactive substance use, unspecified, uncomplicated; D25.9 Leiomyoma of uterus, unspecified; Z95.828 Presence of other vascular implants and grafts; M24.561 Contracture, right knee; M24.562 Contracture, left knee; L89.890 Pressure ulcer of other site, unstageable; L89.526 Pressure-induced deep tissue damage of left ankle; L89.516 Pressure-induced deep tissue damage of right ankle; L98.9 Disorder of the skin and subcutaneous tissue, unspecified; R32 Unspecified urinary incontinence; J06.9 Acute upper respiratory infection, unspecified; M25.451 Effusion, right hip
CPT/HCPCS: 36415; 71045-TC; 74178; 75989-TC; 80048-TC; 80053-TC; 80076-TC; 80202-TC; 81001; 82962-TC; 83605-TC; 83735-TC; 83880; 84100-TC; 84484-TC; 85025-TC; 85610-TC; 87040-TC; 87081-TC; 87086-TC; 93307-TC; 94799-TC; A6248; A6403; C9803; G0378; J1650; J1815; J1953; J2543; J3370; J3480; J7030; J7050; J7060; Q9967

== ENCOUNTER 2022-05-31 13:05 | Inpatient (IN) | payer MEDICARE, OTHER ==
[~2022-05-31] VITALS: Ht 165.1 cm; Wt 77.1 kg
[~2022-05-31 13:05] MED LIST changes: +CEFE1FRO IV; -MERO1PIG IV; -POVI3780 TP; +VANC750F2 IV
[2022-05-31] MEDS ORDERED: VANCOMYCIN 1 GM in IV D5W 250 ML IV ONE (14:30)
[2022-05-31] MEDS ORDERED: CEFEPIME 1 GM in IV D5W 50 ML IV ONE (14:30)
--- NOTE | 2022-05-31 14:56 | NUR ---
MOVE SHEET SUBMITTED
[2022-05-31 15:01] LABS: BASOPHILS # (AUTO) 0.1 K/uL (0.0-0.2); BASOPHILS % (AUTO) 0.8 % (0.0-2.0); EOSINOPHILS % (AUTO) 0.1 % (0.0-6.0); HEMATOCRIT 30 % (33-45); HEMOGLOBIN 9.3 g/dL (11.5-14.8); LYMPHOCYTES # (AUTO) 1.7 K/uL (0.8-4.8); MEAN CORPUSCULAR HGB CONC 31 g/dl (31.0-36.0); MEAN CORPUSCULAR VOLUME 104 fL (82-100); MONOCYTES # (AUTO) 0.9 K/uL (0.1-1.30); NEUTROPHILS # (AUTO) 10.2 K/uL (1.8-8.9); NEUTROPHILS % (AUTO) 79.1 % (43.0-81.0); PLATELET COUNT (AUTO) 219 K/uL (150-450); WHITE BLOOD COUNT (AUTO) 12.9 K/uL (4.3-11.0)
[2022-05-31] MEDS ORDERED: NA P133E RC (15:05)
[2022-05-31] MEDS ORDERED: NUT.237L30 GT (15:05)
[2022-05-31] MEDS ORDERED: POVI3780 TP (15:05)
[2022-05-31] MEDS ORDERED: ACET-868 GT (15:05)
[2022-05-31] MEDS ORDERED: CEFE1VIA3 IV (15:05)
[2022-05-31] MEDS ORDERED: VANC1PLA9 IV (15:05)
[2022-05-31] MEDS ORDERED: MAGN400O6 GT (15:05)
[2022-05-31] MEDS ORDERED: ASCO500T10 GT (15:05)
[2022-05-31] MEDS ORDERED: XEROFORM TD (15:05)
--- NOTE | 2022-05-31 15:17 | NUR ---
[facility] PAGED
[2022-05-31 15:36] LABS: CALCIUM, SERUM 8.1 mg/dL (8.5-10.1); CARBON DIOXIDE 29 mmol/L (21-32); CHLORIDE 117 mmol/L (98-107); CREATININE 0.5 mg/dL (0.6-1.3); GLUCOSE 141 mg/dL (74-106); POTASSIUM 3.4 mmol/L (3.5-5.1); SODIUM SERUM 151 mmol/L (136-145); UREA NITROGEN, BLOOD 20 mg/dL (7-18)
[2022-05-31 15:41] LABS: ALANINE AMINOTRANSFERASE 43 U/L (12-78); ALBUMIN 1.8 g/dL (3.4-5.0); ALKALINE PHOSPHATASE 71 U/L (46-116); ASPARTATE AMINOTRANSFERASE 30 U/L (15-37); BILIRUBIN,DIRECT 0.1 mg/dL (0.0-0.2); BILIRUBIN,TOTAL 0.3 mg/dL (0.2-1.0); TOTAL PROTEIN, SERUM 6.6 g/dL (6.4-8.2)
[2022-05-31] MEDS ORDERED: ALBUTEROL FS 2.5 MG/0.5 ML VIAL.NEB NEB PRN (16:00)
[2022-05-31] MEDS ORDERED: Z GUARD REMEDY 4 OZ OINT TP PRN (16:00)
[2022-05-31] MEDS ORDERED: ACETAMINOPHEN 325 MG TABLET PO PRN (16:00)
[2022-05-31] MEDS ORDERED: ONDANSETRON HCL/PF 4 MG/2 ML VIAL IVP PRN (16:00)
[2022-05-31] MEDS ORDERED: MORPHINE SULFATE INJ 2 MG/ML DISP.SYRIN IV PRN (16:00)
[2022-05-31] MEDS ORDERED: IPRATROPIUM/ALBUTEROL INHALER IH SCH (18:00)
--- NOTE | 2022-05-31 18:21 | NUR ---
RAPID COVID SWAB DONE AND SENT TO LAB
[2022-05-31] MEDS ORDERED: NA PHOS,M-B/NA PHOS,DI-BA 1 EA ENEMA RC PRN (19:30)
[2022-05-31] MEDS ORDERED: GLUCERNA 1.2 1,000 ML BOTTLE NG PRN (19:30)
--- NOTE | 2022-05-31 19:35 | NUR ---
RECEIVED REPORT FROM NIDIA JACOBSEN. PATIENT IS FOR ADMISSION DT UTI. RECEIVED PATIENT AAOX0, ON O2 INH AT 3LPM SATS 99%. WITH PICC LINE ON RIGHT UPPER ARM. CAME WITH GTUBE. ATTACHED TO MONITOR. VITALS CHECKED.
--- NOTE | 2022-05-31 19:35 | NUR ---
Zoie post in [facility] - 05/31/22 at 1935 by CARMEN JESÚSV
--- NOTE | 2022-05-31 20:24 | NUR ---
RECENT TEMT 97.6 ORALLY
--- NOTE | 2022-05-31 20:41 | NUR ---
REPORT GIVEN TO RN RR
--- NOTE | 2022-05-31 20:52 | NUR ---
TRANSFERRED PATIENT TO ROOM VIA ACLS
--- NOTE | 2022-05-31 21:00 | NUR ---
EDUCATIONAL CONSULTANT NOTES RECEIVED PATIENT FROM ER VIA GURNEY ACCOMPANIED BY RN AND NATIONAL SALES EXECUTIVE. A/0 X1. NON VERBAL/ FLAT. ATTACHED TO 02 4LPM, SATURATING 100%. STABLE VITAL SIGNS. IV ACCESS AT RIGHT UPPER ARM PICC LINE WITH 0.45% NS@70ML/H. INFUSING WELL. ON G-TUBE FEEDING GLUCERNA AT 75ML/H. CHECKED PLACEMENT, INTACT. ONGOING FEEDING. WITH SKIN ISSUES DOCUMENTED. NO FEVER AT THIS TIME. SAFETY MEASURES INITIATED. WILL CONTINUE TO MONITOR.
[2022-05-31] MEDS: MEROPENEM 1 G in IV NS 0.9% 100 ML IV SCH (22:18)
[2022-05-31] MEDS: VALPROIC ACID 250 MG/5 ML UDC GT SCH (22:18)
[2022-05-31] MEDS: TOPIRAMATE 100 MG TABLET GT SCH (22:18)
[2022-05-31] MEDS: HEPARIN SODIUM, PORCINE 5000 UNITS/1 ML VIAL SQ SCH (22:20)
[2022-05-31 22:57] LABS: BILIRUBIN,URINE NEGATIVE (NEGATIVE); COLOR,URINE DARK YELLOW (YELLOW); LEUKOCYTE ESTERASE ,URINE TRACE (NEGATIVE); NITRITE, URINE NEGATIVE (NEGATIVE); PH,URINE 5.5 (5.0-8.0); PROTEIN,URINE 2+ mg/dl (NEGATIVE); UGLUCOSE NEGATIVE (NEGATIVE); UROBILINOGEN,URINE 0.2 EU/dL (0.2)
[2022-05-31 22:58] LABS: BACTERIA,URINE Few /HPF (None Seen); SQUAMOUS EPITHELIAL CELL,UR Few /HPF (None Seen)
[2022-06-01] MEDS ORDERED: GLUCERNA 1.2 1,000 ML BOTTLE PEG SCH (00:30)
[2022-06-01 02:21] VITALS: BP 110/70
[2022-06-01] MEDS ORDERED: CEFEPIME 1 GM in IV D5W 50 ML IV SCH (03:00)
[2022-06-01] MEDS: IV 1/2NS 1000 ML 1,000 ML IV SCH ×3 (04:33→21:17)
[2022-06-01 05:00] VITALS: BP 120/67
[2022-06-01] MEDS: VALPROIC ACID 250 MG/5 ML UDC GT SCH ×3 (05:27→21:16)
[2022-06-01] MEDS: MEROPENEM 1 G in IV NS 0.9% 100 ML IV SCH ×3 (05:27→21:16)
--- NOTE | 2022-06-01 06:34 | NUR ---
E COMMERCE STRATEGIST CLOSING NOTES PATIENT LYING ASLEEP IN BED, SEMI FOWLERS POSITION. A/0 X1. NON VERBAL/ FLAT AFFECT. ATTACHED TO 02 4LPM, SATURATING 100%. STABLE VITAL SIGNS. TELE MONITORING READS JUNCTIONAL RHYTHM, HR 95. IV ACCESS AT RIGHT UPPER ARM PICC LINE WITH 0.45% NS@70ML/H. INFUSING WELL. ON G-TUBE FEEDING GLUCERNA AT 75ML/H. CHECKED PLACEMENT, INTACT. ONGOING FEEDING. NO FEVER AT THIS TIME. SAFETY MEASURES INITIATED. WILL ENDORSE TO NEXT SHIFT RN FOR KWAME.
[2022-06-01 06:36] LABS: BASOPHILS # (AUTO) 0.1 K/uL (0.0-0.2); EOSINOPHILS % (AUTO) 0.4 % (0.0-6.0); HEMATOCRIT 28 % (33-45); HEMOGLOBIN 8.8 g/dL (11.5-14.8); LYMPHOCYTES % (AUTO) 7.6 % (20.0-44.0); MEAN CORPUSCULAR HGB CONC 31 g/dl (31.0-36.0); MEAN CORPUSCULAR VOLUME 105 fL (82-100); MONOCYTES # (AUTO) 0.7 K/uL (0.1-1.30); MONOCYTES % (AUTO) 5.7 % (2.0-12.0); NEUTROPHILS # (AUTO) 10.8 K/uL (1.8-8.9); NEUTROPHILS % (AUTO) 85.3 % (43.0-81.0); PLATELET COUNT (AUTO) 232 K/uL (150-450); RED BLOOD CELL COUNT(AUTO) 2.71 MIL/uL (4.0-5.2); WHITE BLOOD COUNT (AUTO) 12.6 K/uL (4.3-11.0)
--- NOTE | 2022-06-01 07:25 | NUR ---
RN OPENING NOTE RECEIVED PATIENT IN BED, AWAKE, ALERT TO SELF, NON-VERBAL, NO SIGNS OF ACUTE DISTRESS NOTED. ON O2 INHALATION @4LPM VIA N/C, NO SOB NOTED, BREATHING EVEN AND UNLABORED. NOTED WITH IV ACCESS ON RIGHT UPPER ARM PICC LINE INTACT AND PATENT WITH 1/2 NS @ 70 ML/HR INFUSING WELL. WITH G-TUBE INTACT AND PATENT, POSITIVE PLACEMENT, 5 ML RESIDUAL NOTED. WITH GTF OF GLUCERNA 1.2 @ 75 ML/HR RUNNING, TOLERATING WELL. SAFETY MEASURE IN PLACE. BED IN LOWEST AND LOCKED POSITION, SIDE RAILS UP X2, CALL LIGHT PLACED WITHIN EASY REACH. WILL CONTINUE TO MONITOR PATIENT.
[2022-06-01 07:31] LABS: ALBUMIN 1.7 g/dL (3.4-5.0); BILIRUBIN,TOTAL 0.2 mg/dL (0.2-1.0); CALCIUM, SERUM 8.8 mg/dL (8.5-10.1); CREATININE 0.5 mg/dL (0.6-1.3); MAGNESIUM 2.6 mg/dL (1.8-2.4); PHOSPHORUS 2.1 mg/dL (2.5-4.9); POTASSIUM 3.8 mmol/L (3.5-5.1); TOTAL PROTEIN, SERUM 6.4 g/dL (6.4-8.2)
--- NOTE | 2022-06-01 07:41 | NUR ---
WOUND CARE CONSULT: LIMITED ASSESSMENT DUE TO PT RESTING AND NOT TURNED AT THIS TIME. BILATERAL EAR DEEP TISSUE INJURIES NOTED TO BE OPEN, LOWER EXTREMITY WOUNDS NOTED AND ADMISSION PHOTO INDICATES FULL THICKNESS SACRAL PRESSURE ULCER, ALL PRESENT ON ADMISSION. DR TORRES AND DR VILLATORO CALLED TO SURGICAL AND DPM CONSULTS. DISCUSSED SKIN PROTECTION WITH NURSING STAFF. FIRST STEP LOW AIRLOSS MATTRESS ORDERED. MD IN AGREEMENT WITH PLAN OF CARE.
[2022-06-01 08:00] VITALS: BP 138/90
[2022-06-01] MEDS: PHENYTOIN SUSP UDC 100 MG/4 ML UDC GT SCH ×2 (08:51→16:22)
[2022-06-01] MEDS: PANTOPRAZOLE 40 MG/PACK PACK GT SCH (08:51)
[2022-06-01] MEDS: TOPIRAMATE 100 MG TABLET GT SCH ×2 (08:52→21:16)
[2022-06-01] MEDS: POLYETHYLENE GLYCOL 3350 17 GM POWD.PACK GT SCH (08:52)
[2022-06-01] MEDS: LEVETIRACETAM SOL (5 ML) 100 MG/ML UDC GT SCH ×2 (08:52→16:22)
[2022-06-01] MEDS: ASCORBIC ACID 500 MG TABLET GT SCH (08:52)
[2022-06-01] MEDS: HEPARIN SODIUM, PORCINE 5000 UNITS/1 ML VIAL SQ SCH ×2 (08:54→21:31)
[2022-06-01] MEDS ORDERED: PROSTAT (PYXIS) 30 ML UDC GT SCH (09:00)
[2022-06-01] MEDS ORDERED: GLUCERNA 1.2 1,000 ML BOTTLE PEG PRN (15:30)
[2022-06-01] MEDS: PROSTAT (PYXIS) 30 ML UDC GT SCH ×3 (15:52→21:16)
[2022-06-01] MEDS ORDERED: NEUTRA PHOS 1 POWD.PACKET GT ONE (16:00)
[2022-06-01] MEDS ORDERED: NEUTRA PHOS 1 POWD.PACKET NG ONE (16:00)
[2022-06-01 17:34] LABS: BAND % (MANUAL) 7 % (0.0-5.0); EOSINOPHILS % (MANUAL) 1 % (0-4); LYMPHOCYTES % (MANUAL) 12 % (16-48); MONOCYTES % (MANUAL) 2 % (0-11.0); NEUTROPHILS % (MANUAL) 78 (42-76)
--- NOTE | 2022-06-01 18:55 | NUR ---
RN CLOSING NOTE PATIENT SLEEPING IN BED, NO SIGNS OF ACUTE DISTRESS NOTED. REMAINS ON O2 INHALATION @4LPM VIA N/C, NO SOB NOTED, BREATHING EVEN AND UNLABORED. SUCTIONED ORAL SECRETIONS PRN. ON TELE MONITOR SHOWING ATRIAL RHYTHM, HR @100. IV ACCESS ON RIGHT UPPER ARM PICC LINE INTACT AND PATENT WITH 1/2 NS @ 70 ML/HR INFUSING WELL. WITH G-TUBE INTACT AND PATENT, WITH GTF OF GLUCERNA 1.2 @ 80 ML/HR RUNNING, TOLERATING WELL. ALL DUE MEDS GIVEN, TOLERATED WELL. SAFETY MEASURE IN PLACE. BED IN LOWEST AND LOCKED POSITION, SIDE RAILS UP X2, CALL LIGHT PLACED WITHIN EASY REACH. WILL ENDORSE TO NEXT SHIFT FOR CONTINUITY OF CARE.
--- NOTE | 2022-06-01 19:21 | NUR ---
RN OPENING NOTE PATIENT SLEEPING IN BED, NO SIGNS OF ACUTE DISTRESS NOTED. REMAINS ON O2 INHALATION @4LPM VIA N/C, NO SOB NOTED, BREATHING EVEN AND UNLABORED. ON TELE MONITOR SHOWING ATRIAL RHYTHM, HR @100. IV ACCESS ON RIGHT UPPER ARM PICC LINE INTACT AND PATENT WITH 1/2 NS @ 70 ML/HR INFUSING WELL. WITH G-TUBE INTACT AND PATENT, WITH GTF OF GLUCERNA 1.2 @ 80 ML/HR RUNNING, TOLERATING WELL. SAFETY MEASURE IN PLACE. BED IN LOWEST AND LOCKED POSITION, SIDE RAILS UP X2, CALL LIGHT PLACED WITHIN EASY REACH. WILL CONT TO MONITOR
[2022-06-01 20:00] VITALS: BP 100/60
[2022-06-01] MEDS: IPRATROPIUM NEB FS 0.5 MG/2.5 ML AMPUL.NEB NEB SCH ×2 (20:21→21:39)
[2022-06-01] MEDS: ALBUTEROL FS 2.5 MG/3 ML VIAL.NEB NEB SCH ×2 (20:21→21:39)
--- NOTE | 2022-06-01 20:38 | NUR ---
RN NOTES PATIENT IS CONGESTED, UNABLE TO COUGH. SECRETIONS NOTED. LUNGS AUSCULTATED. ONGOING BREATHING TREATMENT WITH RT AT BEDSIDE. SUCTIONING DONE. WILL CONT TO MONITOR
[2022-06-01 20:49] VITALS: BP 100/60
--- NOTE | 2022-06-01 21:42 | NUR ---
RT NOTE tx given @2020,initially scanned incorrect sched time. Addendum: 06/01/22 at 2143 by SALLIE GODINEZ RT Amended: Links added.
[2022-06-02] VITALS: BP 105/63
[2022-06-02] MEDS: ALBUTEROL FS 2.5 MG/3 ML VIAL.NEB NEB SCH ×4 (01:40→20:02)
[2022-06-02] MEDS: IPRATROPIUM NEB FS 0.5 MG/2.5 ML AMPUL.NEB NEB SCH ×4 (01:40→20:02)
[2022-06-02 04:00] VITALS: BP 107/65
[2022-06-02] MEDS: MEROPENEM 1 G in IV NS 0.9% 100 ML IV SCH ×3 (05:10→20:14)
[2022-06-02] MEDS: VALPROIC ACID 250 MG/5 ML UDC GT SCH ×3 (05:10→20:12)
--- NOTE | 2022-06-02 06:48 | NUR ---
RN CLOSING NOTE PATIENT SLEEPING IN BED, NO SIGNS OF ACUTE DISTRESS NOTED. REMAINS ON O2 INHALATION @4LPM VIA N/C, NO SOB NOTED, BREATHING EVEN AND UNLABORED. ON TELE MONITOR SHOWING SINUS RHYTHM, HR 79. IV ACCESS ON RIGHT UPPER ARM PICC LINE INTACT AND PATENT WITH 1/2 NS @ 70 ML/HR INFUSING WELL. WITH G-TUBE INTACT AND PATENT, WITH GTF OF GLUCERNA 1.2 @ 80 ML/HR RUNNING, TOLERATING WELL. ALL DUE MEDS GIVEN, TOLERATED WELL. SAFETY MEASURE IN PLACE. BED IN LOWEST AND LOCKED POSITION, SIDE RAILS UP X2, CALL LIGHT PLACED WITHIN EASY REACH. WILL ENDORSE TO NEXT SHIFT FOR CONTINUITY OF CARE.
[2022-06-02 08:53] VITALS: BP 96/70
[2022-06-02] MEDS: LEVETIRACETAM SOL (5 ML) 100 MG/ML UDC GT SCH ×2 (08:58→16:56)
[2022-06-02] MEDS: TOPIRAMATE 100 MG TABLET GT SCH ×2 (09:01→20:12)
[2022-06-02] MEDS: PHENYTOIN SUSP UDC 100 MG/4 ML UDC GT SCH ×2 (09:01→16:55)
[2022-06-02] MEDS: ASCORBIC ACID 500 MG TABLET GT SCH (09:01)
[2022-06-02] MEDS: PANTOPRAZOLE 40 MG/PACK PACK GT SCH (09:01)
[2022-06-02] MEDS: POLYETHYLENE GLYCOL 3350 17 GM POWD.PACK GT SCH (09:02)
[2022-06-02] MEDS: HEPARIN SODIUM, PORCINE 5000 UNITS/1 ML VIAL SQ SCH ×2 (09:03→20:14)
--- NOTE | 2022-06-02 09:59 | NUR ---
RN OPENING NOTE RECEIVED PATIENT SLEEPING IN BED, NON VERBAL, NO S/S OF SOB/ACUTE DISTRESS NOTED. REMAINS ON O2 INHALATION @4LPM VIA NC. TELE MONITOR SHOWING SINUS RHYTHM, HR 83. IV ACCESS ON RIGHT UPPER ARM PICC LINE INTACT AND PATENT WITH 1/2 NS @ 70 ML/HR INFUSING WELL. G-TUBE INTACT AND PATENT, WITH GTF OF GLUCERNA 1.2 @ 80 ML/HR, RUNNING, TOLERATING WELL, WILL TURN OFF SCHEDULED. SAFETY MEASURE IN PLACE. BED IN LOWEST AND LOCKED POSITION, SIDE RAILS UP X2, CALL LIGHT PLACED WITHIN EASY REACH. WILL CONTINUE WITH PLAN OF CARE DURING SHIFT.
[2022-06-02 10:39] LABS: BASOPHILS # (AUTO) 0.4 K/uL (0.0-0.2); BASOPHILS % (AUTO) 4.5 % (0.0-2.0); EOSINOPHILS % (AUTO) 1.2 % (0.0-6.0); HEMATOCRIT 25 % (33-45); LYMPHOCYTES # (AUTO) 1.1 K/uL (0.8-4.8); MEAN CORPUSCULAR HGB CONC 32 g/dl (31.0-36.0); MEAN CORPUSCULAR VOLUME 104 fL (82-100); MONOCYTES # (AUTO) 0.4 K/uL (0.1-1.30); MONOCYTES % (AUTO) 4.1 % (2.0-12.0); NEUTROPHILS % (AUTO) 78.2 % (43.0-81.0); PLATELET COUNT (AUTO) 210 K/uL (150-450); RED BLOOD CELL COUNT(AUTO) 2.45 MIL/uL (4.0-5.2); WHITE BLOOD COUNT (AUTO) 8.9 K/uL (4.3-11.0)
[2022-06-02 11:00] LABS: ALBUMIN 1.6 g/dL (3.4-5.0); BILIRUBIN,TOTAL 0.1 mg/dL (0.2-1.0); CALCIUM, SERUM 8.4 mg/dL (8.5-10.1); CREATININE 0.5 mg/dL (0.6-1.3); POTASSIUM 3.3 mmol/L (3.5-5.1); TOTAL PROTEIN, SERUM 5.9 g/dL (6.4-8.2)
[2022-06-02] MEDS: IV 1/2NS 1000 ML 1,000 ML IV SCH (12:02)
[2022-06-02] MEDS: PROSOURCE / PROSTAT (PYXIS) 30 ML UDC GT SCH ×3 (13:40→20:14)
[2022-06-02 16:00] VITALS: BP 92/53
--- NOTE | 2022-06-02 18:54 | NUR ---
STORE MERCHANDISER CLOSING NOTES PATIENT SLEEPING IN BED, NON VERBAL, NO S/S OF SOB/ACUTE DISTRESS NOTED. REMAINS ON O2 INHALATION @4LPM VIA NC. TELE MONITOR READS SR, HR - 82. IV ACCESS ON RIGHT UPPER ARM PICC LINE INTACT AND PATENT WITH 1/2 NS @ 70 ML/HR INFUSING WELL. G-TUBE INTACT AND PATENT, WITH GTF OF GLUCERNA 1.2 @ 80 ML/HR, RUNNING, TOLERATING WELL, WILL TURN OFF SCHEDULED. WOUND CARE DONE. KEPT PT CLEAN DRY AND COMFORTABLE, MEDS GIVEN. SAFETY MEASURE IN PLACE. BED IN LOWEST AND LOCKED POSITION, SIDE RAILS UP X2, CALL LIGHT WITHIN EASY REACH, WILL ENDORSE TO PM SHIFT.
--- NOTE | 2022-06-02 19:30 | NUR ---
VEST TAILOR OPENING NOTE RECEIVED PATIENT IN BED, WITH HOB ELEVATED, ALERT AND ORIENTED X1. AFEBRILE AND NOT IN ANY FORM OF ACUTE DISTRESS. ON O2 INHALATION VIA NASAL CANNULA AT 4LPM. WITH G-TUBE INTACT WITH NO RESIDUAL NOTED WITH GLUCERNA 1.2 AT 80ML/HR. WITH IV ACCESS ON R UA PICC LINE RUNNING WITH NS AT 75ML/HR. SAFETY MEASURES IN PLACE. KEPT BED IN LOCKED AND IN LOW POSITION. SIDE RAILS UP X2. CALL LIGHT WITHIN EASY REACH.
[2022-06-02 20:00] VITALS: BP 102/62
[2022-06-03] VITALS: BP 111/65
[2022-06-03] MEDS: IPRATROPIUM NEB FS 0.5 MG/2.5 ML AMPUL.NEB NEB SCH ×4 (01:37→19:45)
[2022-06-03] MEDS: ALBUTEROL FS 2.5 MG/3 ML VIAL.NEB NEB SCH ×4 (01:37→19:46)
[2022-06-03 03:41] LABS: BAND % (MANUAL) 3 % (0.0-5.0); BASOPHILS % (MANUAL) 0 % (0.0-2.0); EOSINOPHILS % (MANUAL) 2 % (0-4); LYMPHOCYTES % (MANUAL) 15 % (16-48); MONOCYTES % (MANUAL) 6 % (0-11.0); NEUTROPHILS % (MANUAL) 74 (42-76)
[2022-06-03] MEDS: MEROPENEM 1 G in IV NS 0.9% 100 ML IV SCH ×3 (04:50→21:27)
[2022-06-03] MEDS: VALPROIC ACID 250 MG/5 ML UDC GT SCH ×3 (04:50→21:23)
--- NOTE | 2022-06-03 06:30 | NUR ---
QUALITY MEASUREMENT SPECIALIST CLOSING NOTE PATIENT IN BED, WITH HOB ELEVATED, ALERT AND ORIENTED X1. AFEBRILE AND NOT IN ANY FORM OF ACUTE DISTRESS. ON O2 INHALATION VIA NASAL CANNULA AT 2LPM. WITH G-TUBE INTACT WITH NO RESIDUAL NOTED WITH GLUCERNA 1.2 AT 75ML/HR. WITH IV ACCESS ON R UA PICC LINE RUNNING WITH NS AT 75ML/HR. ON TELE MONITORING WITH CURRENT READING OF SR 84. SAFETY MEASURES IN PLACE. KEPT BED IN LOCKED AND IN LOW POSITION. SIDE RAILS UP X2. CALL LIGHT WITHIN EASY REACH. ALL NURSING NEEDS ATTENDED. ENDORSED TO INCOMING SHIFT FOR CONTINUITY OF CARE.
[2022-06-03 07:00] VITALS: BP 111/65
[2022-06-03 07:01] LABS: BASOPHILS # (AUTO) 0.1 K/uL (0.0-0.2); BASOPHILS % (AUTO) 0.8 % (0.0-2.0); HEMATOCRIT 25 % (33-45); LYMPHOCYTES # (AUTO) 1.3 K/uL (0.8-4.8); LYMPHOCYTES % (AUTO) 18.1 % (20.0-44.0); MEAN CORPUSCULAR HGB CONC 32 g/dl (31.0-36.0); MEAN CORPUSCULAR VOLUME 103 fL (82-100); MONOCYTES # (AUTO) 0.4 K/uL (0.1-1.30); MONOCYTES % (AUTO) 6.1 % (2.0-12.0); PLATELET COUNT (AUTO) 262 K/uL (150-450); RED BLOOD CELL COUNT(AUTO) 2.41 MIL/uL (4.0-5.2); WHITE BLOOD COUNT (AUTO) 6.9 K/uL (4.3-11.0)
[2022-06-03 07:19] LABS: CALCIUM, SERUM 8.4 mg/dL (8.5-10.1); CREATININE 0.5 mg/dL (0.6-1.3); POTASSIUM 3.4 mmol/L (3.5-5.1)
[2022-06-03 07:25] LABS: ALBUMIN 1.6 g/dL (3.4-5.0); BILIRUBIN,TOTAL 0.1 mg/dL (0.2-1.0); TOTAL PROTEIN, SERUM 5.8 g/dL (6.4-8.2)
--- NOTE | 2022-06-03 07:30 | NUR ---
CORPORATE LAW SPECIALIST OPENING NOTE RECEIVED PATIENT SLEEPING IN BED, NON VERBAL, NO S/S OF SOB/ACUTE DISTRESS NOTED. REMAINS ON O2 INHALATION @4LPM VIA NC. TELE MONITOR SHOWING SINUS RHYTHM, HR 84 . IV ACCESS ON RIGHT UPPER ARM PICC LINE INTACT AND PATENT WITH 1/2 NS @ 70 ML/HR INFUSING WELL. G-TUBE INTACT AND PATENT, WITH GTF OF GLUCERNA 1.2 @ 75 ML/HR ON HOLD AT THIS TIME FOR DILANTIN MEDICATION , . SAFETY MEASURE IN PLACE. BED IN LOWEST AND LOCKED POSITION, SIDE RAILS UP X2, CALL LIGHT PLACED WITHIN EASY REACH. WILL CONTINUE WITH PLAN OF CARE DURING SHIFT.
[2022-06-03] MEDS ORDERED: IV D5/0.45 NACL 1,000 ML IV SCH (08:00)
[2022-06-03] MEDS: PHENYTOIN SUSP UDC 100 MG/4 ML UDC GT SCH ×2 (09:01→17:20)
[2022-06-03] MEDS: PANTOPRAZOLE 40 MG/PACK PACK GT SCH (09:01)
[2022-06-03] MEDS: ASCORBIC ACID 500 MG TABLET GT SCH (09:01)
[2022-06-03] MEDS: LEVETIRACETAM SOL (5 ML) 100 MG/ML UDC GT SCH ×2 (09:01→17:20)
[2022-06-03] MEDS: POLYETHYLENE GLYCOL 3350 17 GM POWD.PACK GT SCH (09:01)
[2022-06-03] MEDS: TOPIRAMATE 100 MG TABLET GT SCH ×2 (09:03→21:25)
[2022-06-03] MEDS: PROSOURCE / PROSTAT (PYXIS) 30 ML UDC GT SCH ×4 (09:05→21:24)
[2022-06-03] MEDS: HEPARIN SODIUM, PORCINE 5000 UNITS/1 ML VIAL SQ SCH ×2 (09:21→21:26)
[2022-06-03] MEDS ORDERED: POTASSIUM CHLORIDE 20 MEQ POWDER PACKET GT SCH (11:00)
[2022-06-03 12:00] VITALS: BP 111/62
[2022-06-03] MEDS: THERAHONEY GEL 1.5 OZ TUBE TP SCH (14:23)
[2022-06-03] MEDS: IV D5W 1,000 ML IV SCH (16:32)
[2022-06-03] MEDS ORDERED: GLUCERNA 1.2 1,000 ML BOTTLE GT PRN (18:30)
--- NOTE | 2022-06-03 18:37 | NUR ---
MUSHROOM GROWER CLOSING NOTE PATIENT IN BED AWAKE , NON VERBAL, NO S/S OF SOB/ACUTE DISTRESS NOTED. REMAINS ON O2 INHALATION @2LPM VIA NC. TELE MONITOR SHOWING SINUS RHYTHM, HR 82 . IV ACCESS ON RIGHT UPPER ARM PICC LINE INTACT AND PATENT WITH NEW ORDER OF D5 WATER NS @ 75 ML/HR INFUSING WELL. G-TUBE INTACT AND PATENT, WITH GTF OF GLUCERNA 1.2 @ 80 ML/HR FOR 16 HOURS , ON HOLD AT THIS TIME FOR DILANTIN MEDICATION , . SAFETY MEASURE IN PLACE. BED IN LOWEST AND LOCKED POSITION, SIDE RAILS UP X2, CALL LIGHT PLACED WITHIN EASY REACH. WILL ENDORSED TO NEXT SHIFT .
--- NOTE | 2022-06-03 19:00 | NUR ---
noc rn opening received patient in bed, eye opening, non-verbal. no s/s of apparent distress on 2lpm of o2 via nc. not exhibiting pain via flacc. reading sr 77 bpm on tele monitor. g-tube noted in place-- feeding on standby at this time, and started again Glucerna 1.2 @80mls/hr. rt. ua picc running d5w @75mls/hr. safety in place. will continue with patient's plan of care.
[2022-06-03 20:00] VITALS: BP 114/71
[2022-06-04] MEDS: IPRATROPIUM NEB FS 0.5 MG/2.5 ML AMPUL.NEB NEB SCH ×2 (01:36→07:56)
[2022-06-04] MEDS: ALBUTEROL FS 2.5 MG/3 ML VIAL.NEB NEB SCH ×2 (01:36→07:56)
--- NOTE | 2022-06-04 01:54 | NUR ---
noc rn ote patient saturating 100% on 2lpm via nc. titrated o2 down to 1lpm, will re-assess and continue to monitor.
--- NOTE | 2022-06-04 02:50 | NUR ---
maximo alfred note saturating 98% on 1lpm. will wean off oxygen and re-assess. Addendum: 06/04/22 at 0254 by LULU WRIGHT RN disregard
[2022-06-04] MEDS: MEROPENEM 1 G in IV NS 0.9% 100 ML IV SCH (05:11)
[2022-06-04] MEDS: VALPROIC ACID 250 MG/5 ML UDC GT SCH (05:12)
[2022-06-04] MEDS: IV D5W 1,000 ML IV SCH (06:48)
--- NOTE | 2022-06-04 06:49 | NUR ---
noc rn note Bag of D5W hanged late since half a bag still running @0450 am.
[2022-06-04 07:01] LABS: BASOPHILS % (AUTO) 0.7 % (0.0-2.0); EOSINOPHILS % (AUTO) 4.2 % (0.0-6.0); HEMATOCRIT 29 % (33-45); HEMOGLOBIN 8.8 g/dL (11.5-14.8); LYMPHOCYTES # (AUTO) 1.4 K/uL (0.8-4.8); MEAN CORPUSCULAR HGB CONC 31 g/dl (31.0-36.0); MEAN CORPUSCULAR VOLUME 106 fL (82-100); MONOCYTES # (AUTO) 0.5 K/uL (0.1-1.30); MONOCYTES % (AUTO) 7.9 % (2.0-12.0); NEUTROPHILS # (AUTO) 3.7 K/uL (1.8-8.9); NEUTROPHILS % (AUTO) 63.2 % (43.0-81.0); PLATELET COUNT (AUTO) 277 K/uL (150-450); RED BLOOD CELL COUNT(AUTO) 2.68 MIL/uL (4.0-5.2); WHITE BLOOD COUNT (AUTO) 5.9 K/uL (4.3-11.0)
--- NOTE | 2022-06-04 07:07 | NUR ---
noc rn closing note patient in bed, with eyes closed, easy to arouse. no s/s of apparent distress on 1lpm of o2 via nc. not exhibiting pain via flacc. reading sr with 77 bpm this am. r.ua picc line running D5w @75mls/hr. GT feeding turned off at this time for administration og dilantin. needs attended. all scheduled medication administered. safety kept in place the whole shift. will endorse to morning shift rn for continuity of patient care.
[2022-06-04 07:14] LABS: ALBUMIN 1.5 g/dL (3.4-5.0); CALCIUM, SERUM 8.2 mg/dL (8.5-10.1); CREATININE 0.4 mg/dL (0.6-1.3); POTASSIUM 3.4 mmol/L (3.5-5.1); TOTAL PROTEIN, SERUM 5.5 g/dL (6.4-8.2)
[2022-06-04 07:45] LABS: BILIRUBIN,TOTAL 0.1 mg/dL (0.2-1.0)
--- NOTE | 2022-06-04 07:50 | NUR ---
[employer]MI[employer] OPENING NOTE RECEIVED PATIENT SLEEPING IN BED, NON VERBAL, NO S/S OF SOB/ACUTE DISTRESS NOTED. REMAINS ON O2 INHALATION @ 1 LPM VIA NC. TELE MONITOR SHOWING SINUS RHYTHM, HR 78 . IV ACCESS ON RIGHT UPPER ARM PICC LINE INTACT AND PATENT WITH D 5 WATER @ 75 ML/HR INFUSING WELL. G-TUBE INTACT AND PATENT, WITH GTF OF GLUCERNA 1.2 @ 80 ML/HR ON HOLD AT THIS TIME FOR DILANTIN MEDICATION , . SAFETY MEASURE IN PLACE. BED IN LOWEST AND LOCKED POSITION, SIDE RAILS UP X2, CALL LIGHT PLACED WITHIN EASY REACH. WILL CONTINUE WITH PLAN OF CARE DURING SHIFT.
[2022-06-04 08:00] VITALS: BP 115/62
[2022-06-04] MEDS ORDERED: MERO1VIA23 IV (08:58)
[2022-06-04] MEDS: PHENYTOIN SUSP UDC 100 MG/4 ML UDC GT SCH (09:55)
[2022-06-04] MEDS: POLYETHYLENE GLYCOL 3350 17 GM POWD.PACK GT SCH (09:55)
[2022-06-04] MEDS: LEVETIRACETAM SOL (5 ML) 100 MG/ML UDC GT SCH (09:55)
[2022-06-04] MEDS: PANTOPRAZOLE 40 MG/PACK PACK GT SCH (09:56)
[2022-06-04] MEDS: ASCORBIC ACID 500 MG TABLET GT SCH (09:56)
[2022-06-04] MEDS: TOPIRAMATE 100 MG TABLET GT SCH (09:59)
[2022-06-04] MEDS: PROSOURCE / PROSTAT (PYXIS) 30 ML UDC GT SCH (10:00)
[2022-06-04] MEDS ORDERED: POTASSIUM CHLORIDE 20 MEQ POWDER PACKET NG SCH (10:00)
[2022-06-04] MEDS: HEPARIN SODIUM, PORCINE 5000 UNITS/1 ML VIAL SQ SCH (10:02)
[2022-06-04] MEDS: THERAHONEY GEL 1.5 OZ TUBE TP SCH (13:00)
--- NOTE | 2022-06-04 14:00 | NUR ---
FIRE AND SAFETY HELPER NOTES PATIENT IS WITH ORDER FOR DISCHARGE TODAY , CLEARED BY MD , WITH ORDER FOR COVID RAPID TEST FOR FACILITY TRANSFER PROTOCOL, ALL PAPERS WERE PREPARED AND , BODY ASSESSMENT DONE PHOTOS TAKEN , NO BELONGINGS AND FORMED WAS SIGNED BY TWO RN PATIENT IS UNABLE TO ARTI DUE TO PRESENT MEDICAL CONDITION , DISCHARGE INSTRUCTIONS WAS REPORTED TO [facility] RN CALL SPECIALIST REGARDING IV ATB TO CONTINUE AND MEDICATIONS ORDERED, REPORT WAS GIVEN TO RENEE Reddy RN , PATIENT WAS PICKUP BY AMBULANCE PERSONEL VIA GURNEY , PATIENT STILL WITH RIGHT UPPER ARM PICC LINE , PATIENT LEFT IN A STABLE CONDITION
== END 2022-06-04 13:30 | DRG 871 ==
LOC: ER 13:07 → TELE 20:16
PROVIDERS: ADMIT Internal Medicine; ATTEND Internal Medicine
DX: A41.9 Sepsis, unspecified organism (principal); E43 Unspecified severe protein-calorie malnutrition; G93.41 Metabolic encephalopathy; R53.2 Functional quadriplegia; N39.0 Urinary tract infection, site not specified; E87.0 Hyperosmolality and hypernatremia; J98.11 Atelectasis; E86.0 Dehydration; G40.909 Epilepsy, unspecified, not intractable, without status epilepticus; Z86.718 Personal history of other venous thrombosis and embolism; Z87.440 Personal history of urinary (tract) infections; R13.10 Dysphagia, unspecified; Z93.1 Gastrostomy status; E11.9 Type 2 diabetes mellitus without complications; E78.5 Hyperlipidemia, unspecified; E83.39 Other disorders of phosphorus metabolism; E87.6 Hypokalemia; E88.09 Other disorders of plasma-protein metabolism, not elsewhere classified; F03.90 Unspecified dementia, unspecified severity, without behavioral disturbance, psychotic disturbance, mood disturbance, and anxiety; F31.9 Bipolar disorder, unspecified; I10 Essential (primary) hypertension; M24.561 Contracture, right knee; M24.562 Contracture, left knee; Z20.822 Contact with and (suspected) exposure to COVID-19; Z79.4 Long term (current) use of insulin; Z95.828 Presence of other vascular implants and grafts; L98.8 Other specified disorders of the skin and subcutaneous tissue; L89.890 Pressure ulcer of other site, unstageable; Z88.8 Allergy status to other drugs, medicaments and biological substances; S90.02XA Contusion of left ankle, initial encounter; S90.01XA Contusion of right ankle, initial encounter; S90.32XA Contusion of left foot, initial encounter; S90.31XA Contusion of right foot, initial encounter; X58.XXXA Exposure to other specified factors, initial encounter; Y93.89 Activity, other specified
CPT/HCPCS: 31720; 36415; 71045-TC; 80048-TC; 80053-TC; 80076-TC; 81001; 82962-TC; 83605-TC; 83735-TC; 84100-TC; 84484-TC; 85025-TC; 85730-TC; 87040-TC; 87081-TC; 87086-TC; 94799-TC; A6403; C9803; G0378; J0692; J1644; J1953; J2185; J3370; J3490; J7030; J7050; J7060; J7070

== ENCOUNTER 2022-06-18 06:19 | Inpatient (IN) | payer MEDICARE, OTHER ==
[~2022-06-18] VITALS: Ht 170.2 cm; Wt 65.8 kg
[~2022-06-18 06:19] MED LIST changes: -ASCO500C17 GT; +ASCO500T10 GT; -CEFE1FRO IV; +MAGN400O6 GT; +MERO1VIA23 IV; +NA P133E RC; +POVI3780 TP; -VANC750F2 IV; +XEROFORM TD
--- NOTE | 2022-06-18 06:24 | NUR ---
[id number] FROM SNF FOR O2 DESATURATION 88% RA, PLACED ON NRB SATTING 93%. PATIENT IN BED 08 ON MONITOR AND POX, AWAITING MD ECHEVERRIA.
[2022-06-18] MEDS ORDERED: MEROPENEM 1 G in IV NS 0.9% 100 ML IV ONE (06:30)
[2022-06-18] MEDS ORDERED: VANCOMYCIN 1 GM in IV D5W 250 ML IV ONE (06:30)
[2022-06-18] MEDS ORDERED: IV NS 0.9% 1,000 ML BAG IV ONE (06:30)
--- NOTE | 2022-06-18 06:34 | NUR ---
COVID SWAB DONE AND SENT TO LAB
--- NOTE | 2022-06-18 06:34 | NUR ---
URINE COLLECTED AND SENT TO LAB
--- NOTE | 2022-06-18 06:34 | NUR ---
BLOOD COLLECTED AND SENT TO LAB
[2022-06-18] MEDS ORDERED: MEROPENEM 1 G VIAL IV ONE (06:37)
[2022-06-18] MEDS ORDERED: VANCOMYCIN 1 GM VIAL ONE (06:37)
--- NOTE | 2022-06-18 06:47 | NUR ---
LARGE BM, PATIENT CHANGED AND CLEANED
[2022-06-18 06:51] LABS: BASOPHILS # (AUTO) 0.1 K/uL (0.0-0.2); BASOPHILS % (AUTO) 1.2 % (0.0-2.0); EOSINOPHILS % (AUTO) 0.1 % (0.0-6.0); HEMATOCRIT 36 % (33-45); HEMOGLOBIN 11.3 g/dL (11.5-14.8); LYMPHOCYTES # (AUTO) 1.5 K/uL (0.8-4.8); LYMPHOCYTES % (AUTO) 16.5 % (20.0-44.0); MEAN CORPUSCULAR HGB CONC 32 g/dl (31.0-36.0); MEAN CORPUSCULAR VOLUME 101 fL (82-100); MONOCYTES # (AUTO) 0.4 K/uL (0.1-1.30); MONOCYTES % (AUTO) 4.1 % (2.0-12.0); NEUTROPHILS # (AUTO) 7.2 K/uL (1.8-8.9); NEUTROPHILS % (AUTO) 78.1 % (43.0-81.0); PLATELET COUNT (AUTO) 326 K/uL (150-450); RED BLOOD CELL COUNT(AUTO) 3.56 MIL/uL (4.0-5.2); WHITE BLOOD COUNT (AUTO) 9.2 K/uL (4.3-11.0)
--- NOTE | 2022-06-18 06:53 | NUR ---
IV R WRIST 20G ESTABLISHED
--- NOTE | 2022-06-18 06:54 | NUR ---
XRAY AT BEDSIDE
[2022-06-18 07:01] LABS: CALCIUM, SERUM 8.2 mg/dL (8.5-10.1); CARBON DIOXIDE 21 mmol/L (21-32); CHLORIDE 105 mmol/L (98-107); CREATININE 0.8 mg/dL (0.6-1.3); GLUCOSE 208 mg/dL (74-106); POTASSIUM 4.3 mmol/L (3.5-5.1); SODIUM SERUM 141 mmol/L (136-145); UREA NITROGEN, BLOOD 34 mg/dL (7-18)
[2022-06-18 07:14] LABS: ALANINE AMINOTRANSFERASE 30 U/L (12-78); ALBUMIN 2.2 g/dL (3.4-5.0); ALKALINE PHOSPHATASE 166 U/L (46-116); ASPARTATE AMINOTRANSFERASE 42 U/L (15-37); BILIRUBIN,DIRECT 0.1 mg/dL (0.0-0.2); BILIRUBIN,TOTAL 0.2 mg/dL (0.2-1.0); TOTAL PROTEIN, SERUM 7.3 g/dL (6.4-8.2)
[2022-06-18] MEDS ORDERED: IV NS 0.9% 1,000 ML IV ONE (07:30)
[2022-06-18] MEDS ORDERED: ALBU2.5V13 IH (08:13)
[2022-06-18] MEDS ORDERED: ACETAMINOPHEN 650 MG/SUPP.RECT RC PRN (08:30)
[2022-06-18] MEDS ORDERED: Z GUARD REMEDY 4 OZ OINT TP PRN (08:30)
[2022-06-18] MEDS ORDERED: ACETAMINOPHEN 325 MG TABLET MC PRN (08:30)
[2022-06-18] MEDS ORDERED: ACETAMINOPHEN 325 MG TABLET PO PRN (08:30)
[2022-06-18] MEDS ORDERED: MORPHINE SULFATE INJ 2 MG/ML DISP.SYRIN IV PRN (08:30)
[2022-06-18] MEDS ORDERED: ONDANSETRON HCL/PF 4 MG/2 ML VIAL IVP PRN (08:30)
[2022-06-18] MEDS ORDERED: ACETAMINOPHEN ES 500 MG TABLET GT PRN (08:30)
[2022-06-18] MEDS ORDERED: DEXTROSE 50%-WATER 50 ML DISP.SYRIN IV PRN (08:30)
[2022-06-18 08:42] LABS: BILIRUBIN,URINE NEGATIVE (NEGATIVE); COLOR,URINE YELLOW (YELLOW); LEUKOCYTE ESTERASE ,URINE 2+ (NEGATIVE); NITRITE, URINE NEGATIVE (NEGATIVE); PROTEIN,URINE 2+ mg/dl (NEGATIVE); UGLUCOSE NEGATIVE (NEGATIVE)
[2022-06-18] MEDS: LEVETIRACETAM SOL (5 ML) 100 MG/ML UDC GT SCH ×2 (09:00→17:33)
[2022-06-18 09:03] LABS: BACTERIA,URINE Moderate /HPF (None Seen); CALCIUM OXALATE CRYSTALS,UR Many /HPF (None Seen); SQUAMOUS EPITHELIAL CELL,UR Few /HPF (None Seen); WBC,URINE 21-50 /HPF (0-3)
[2022-06-18] MEDS ORDERED: LEVETIRACETAM (500MG) 500 MG/5 ML VIAL IV ONE ×2 (09:46→09:57)
[2022-06-18] MEDS ORDERED: ASCORBIC ACID 500 MG TABLET ONE (09:47)
[2022-06-18] MEDS ORDERED: PANTOPRAZOLE 40 MG/PACK PACK ONE (09:47)
[2022-06-18] MEDS: ASCORBIC ACID 500 MG TABLET GT SCH (09:51)
[2022-06-18] MEDS: PANTOPRAZOLE 40 MG/PACK PACK GT SCH (09:51)
[2022-06-18] MEDS ORDERED: ACETAMINOPHEN 650 MG/20.3 ML UDC PO PRN (10:00)
[2022-06-18] MEDS ORDERED: ACETAMINOPHEN 650 MG/20.3 ML UDC GT PRN (10:00)
[2022-06-18] MEDS ORDERED: ENOXAPARIN SODIUM 40 MG/0.4 ML DISP.SYRIN SQ ONE (10:20)
[2022-06-18] MEDS: ENOXAPARIN SODIUM 40 MG/0.4 ML DISP.SYRIN SQ SCH (10:22)
--- NOTE | 2022-06-18 10:53 | NUR ---
LACTIC ACID 2.6 MD MADE AWARE
[2022-06-18] MEDS: BLOOD SUGAR DIAGNOSTIC 1 EACH STRIP IN SCH ×3 (11:23→23:59)
[2022-06-18] MEDS: INSULIN REGULAR, HUMAN 100 UNIT/ML 3 ML VIAL SQ PRN (11:24)
--- NOTE | 2022-06-18 11:55 | NUR ---
104 Addendum: 06/18/22 at 1252 by HSLADE 103, NOT 104
[2022-06-18] MEDS: MEROPENEM 1 G in IV NS 0.9% 100 ML IV SCH ×2 (12:16→22:04)
--- NOTE | 2022-06-18 12:48 | NUR ---
CALLED [facility] AND GAVE PATIENT REPORT TO RN.
[2022-06-18] MEDS ORDERED: MEROPENEM 500 MG in IV NS 0.9% 50 ML IV SCH (13:00)
[2022-06-18] MEDS ORDERED: MEROPENEM 1,000 MG in IV NS 0.9% 50 ML IV SCH (13:00)
[2022-06-18 13:30] VITALS: BP 99/67
--- NOTE | 2022-06-18 13:30 | NUR ---
TD HAND FLESHER NOTE: ADMITTED PATIENT FROM ER FROM [facility], DX SEPSIS UTI, OPENS EYE, OBTUNDED, ON 15L O2 VIA NON REBREATHER MASK, O2 SAT AT 100%. NO DISTRESS, RESPIRATION UNLABORED. ST HR 120 ON MONITOR. NO SIGNS OF PAIN/GRIMACINGS. IV ACCESS - RIGHT WRIST G 20 FLUSHSES WELL, SITE CLEAR. KOFI MIDLINE WITH NS AT 75 ML/HR INFUSING WELL. SITE CLEAR. SEE NURSING FLOWSHEET FOR SKIN ISSUES, FOR WOUND CONSULT. GT CHECKED FOR PLACEMENT, CLAMPED AT THIS TIME. O RESIDUAL WILL START FEEDING. SAFETY MEASURES IN PLACE. SEIZURE PRECAUTION IN PLACE, BED RAILS PADDED, SUCTION SET UP, BED LOW LOCKED, SR UP X 2, HOB UP 30 DEG. CALL LIGHT WITHIN REACH. WILL CONTINUE TO MONITOR.
--- NOTE | 2022-06-18 13:38 | NUR ---
Patient transferred to [facility] unit 103. All paperwork and medications transported with patient. Full report given to RN. Patient transferred to bed without incident.
[2022-06-18] MEDS: IV NS 0.9% 1,000 ML IV PRN (16:47)
[2022-06-18] MEDS: PHENYTOIN SUSP UDC 100 MG/4 ML UDC GT SCH (17:34)
[2022-06-18] MEDS: GLUCERNA 1.2 1,000 ML BOTTLE GT SCH (17:49)
[2022-06-18] MEDS: VANCOMYCIN HCL 0.75 GM in IV D5W 250 ML IV SCH (18:24)
--- NOTE | 2022-06-18 18:51 | NUR ---
RN NOTES ALL NEEDS MET AT THIS TIME. PM CARE DONE. HOB UP X 30 DEG. WILL ENDORSE TO NEXT SHIFT FOR KWAME
--- NOTE | 2022-06-18 19:53 | NUR ---
[facility]/CHELSIE RECEIVED PATIENT IN BED APPEARS SLEEPING, APPEARS COMFORTABLE, NO SIGNS OF DISTRESS NOTED, G TUBE FEEDING INFUSING, HOB ELEVATED, CALL LIGHT IN EACH, WILL MONITOR.
[2022-06-18 20:00] VITALS: BP 110/71
[2022-06-19] VITALS: BP 94/63
--- NOTE | 2022-06-19 00:36 | NUR ---
[facility]/RN SLEEPING, NO CHANGE IN CONDITION. WILL CONTINUE TO MONITOR.
[2022-06-19] MEDS: ALBUTEROL FS 2.5 MG/0.5 ML VIAL.NEB NEB SCH ×4 (02:08→20:02)
[2022-06-19 04:00] VITALS: BP 106/62
[2022-06-19] MEDS: MEROPENEM 1 G in IV NS 0.9% 100 ML IV SCH ×3 (05:30→21:09)
[2022-06-19] MEDS: IV NS 0.9% 1,000 ML IV PRN ×2 (05:36→22:35)
[2022-06-19 06:03] LABS: HEMATOCRIT 29 % (33-45); HEMOGLOBIN 9.4 g/dL (11.5-14.8); MEAN CORPUSCULAR HGB CONC 32 g/dl (31.0-36.0); MEAN CORPUSCULAR VOLUME 102 fL (82-100); RED BLOOD CELL COUNT(AUTO) 2.86 MIL/uL (4.0-5.2); WHITE BLOOD COUNT (AUTO) 7.9 K/uL (4.3-11.0)
[2022-06-19 06:04] LABS: BASOPHILS # (AUTO) 0.1 K/uL (0.0-0.2); BASOPHILS % (AUTO) 1.1 % (0.0-2.0); EOSINOPHILS % (AUTO) 0.7 % (0.0-6.0); LYMPHOCYTES # (AUTO) 0.9 K/uL (0.8-4.8); MONOCYTES # (AUTO) 0.7 K/uL (0.1-1.30); MONOCYTES % (AUTO) 8.6 % (2.0-12.0); NEUTROPHILS # (AUTO) 6.1 K/uL (1.8-8.9); NEUTROPHILS % (AUTO) 77.6 % (43.0-81.0); PLATELET COUNT (AUTO) 185 K/uL (150-450)
[2022-06-19] MEDS: BLOOD SUGAR DIAGNOSTIC 1 EACH STRIP IN SCH ×3 (06:09→16:56)
--- NOTE | 2022-06-19 06:12 | NUR ---
[facility]/RN PATIENT IS AWAKE, NO SIGNS OF DISTRESS NOTED, HOB ELEVATED, G TUBE FEEDING INFUSING, ALL NEEDS ATTENDED AT THIS TIME, WILL CONTINUE TO MONITOR.
[2022-06-19 06:18] LABS: CALCIUM, SERUM 8.3 mg/dL (8.5-10.1); CREATININE 0.4 mg/dL (0.6-1.3); MAGNESIUM 2.4 mg/dL (1.8-2.4); PHOSPHORUS 2.6 mg/dL (2.5-4.9); POTASSIUM 3.5 mmol/L (3.5-5.1)
[2022-06-19] MEDS: VANCOMYCIN HCL 0.75 GM in IV D5W 250 ML IV SCH ×2 (06:36→18:52)
--- NOTE | 2022-06-19 07:16 | NUR ---
CARBON SEQUESTRATION PLANT MANAGER OPENING NOTES RECEIVED PATIENT IN BED ASLEEP BUT EASILY AWOKEN, NON VERBAL OBTUNDED, WITH FLAT AFFECT. ON 5LPM O2 VIA NC, WELL TOLERATED, NO SOB, NO S/S RESP DISTRESS. IV ACCESS ON RIGHT HAND G #22 WITH IVF NS @ 75 ML/HR INFUSING WELL. WITH G TUBE FEEDING OF GLUCERNA RUNNING AT 75 ML/HR, INFUSING WELL. SAFETY MEASURES IN PLACED: BED LOCKED AND IN LOWEST POSITION. CALL LIGHT WITHIN EASY REACH. IN STABLE CONDITION. WILL CONTINUE WITH PLAN OF CARE.
--- NOTE | 2022-06-19 08:16 | NUR ---
OTOLARYNGOLOGIST NOTE SEEN BY DR. HERCULES, IN STABLE CONDITION.
[2022-06-19] MEDS: PHENYTOIN SUSP UDC 100 MG/4 ML UDC GT SCH ×2 (08:42→16:55)
[2022-06-19] MEDS: ZINC SULFATE 220 MG CAPSULE GT SCH (08:42)
[2022-06-19] MEDS: ASCORBIC ACID 500 MG TABLET GT SCH (08:42)
[2022-06-19] MEDS: MULTIVIT W/MINERALS 1 TAB TABLET GT SCH (08:42)
[2022-06-19] MEDS: LEVETIRACETAM SOL (5 ML) 100 MG/ML UDC GT SCH ×2 (08:42→16:55)
[2022-06-19] MEDS: PANTOPRAZOLE 40 MG/PACK PACK GT SCH (08:42)
[2022-06-19] MEDS: ENOXAPARIN SODIUM 40 MG/0.4 ML DISP.SYRIN SQ SCH (09:09)
--- NOTE | 2022-06-19 09:48 | NUR ---
BAR ROLLER NOTE SEEN BY HOSPITALIST ROSY, IN STABLE CONDITION.
[2022-06-19] MEDS: GLUCERNA 1.2 1,000 ML BOTTLE GT SCH (17:00)
--- NOTE | 2022-06-19 18:53 | NUR ---
SATELLITE SPECIALIST CLOSING NOTES PATIENT IN BED ASLEEP RESPONSIVE TO LIGHT TOUCH OR SOUND, NON VERBAL OBTUNDED, WITH FLAT AFFECT. ON 5LPM O2 VIA NC, WELL TOLERATED, NO SOB, NO S/S RESP DISTRESS. IV ACCESS ON RIGHT HAND G #22 WITH IVF NS @ 75 ML/HR INFUSING WELL. WITH G TUBE FEEDING OF GLUCERNA RUNNING AT 75 ML/HR, INFUSING WELL. SAFETY MEASURES IN PLACED: BED LOCKED AND IN LOWEST POSITION. CALL LIGHT WITHIN EASY REACH. IN STABLE CONDITION. ENDORSED TO NEXT SHIFT FOR CONTINUITY OF CARE.
--- NOTE | 2022-06-19 19:30 | NUR ---
noc rn note received patient in bed with eyes closed, easy to arouse. obtunded and growls. no s/s of apparent distress on 5lpm of o2 via nc. not exhibiting pain via flacc. reading sr on the tele monitor with 85 bpm. Gt fedding running glucerna @75mls/hr. rt. hand #22g running ns @75mls/hr. safety in place-- all 4 rails padded, bed in lowest, locked position. will continue with patient's care plan.
[2022-06-19 20:00] VITALS: BP 102/55
--- NOTE | 2022-06-19 22:42 | NUR ---
noc rn note Ericka from lab reported @[phone] to Nisha Charge nurse that patient blood culture positive. per lab no organism noted on there end and to defer to ID tomorrow.
[2022-06-20] VITALS: BP 104/59
[2022-06-20] MEDS: BLOOD SUGAR DIAGNOSTIC 1 EACH STRIP IN SCH ×4 (00:09→17:32)
[2022-06-20] MEDS: INSULIN REGULAR, HUMAN 100 UNIT/ML 3 ML VIAL SQ PRN ×2 (01:23→06:49)
[2022-06-20] MEDS: ALBUTEROL FS 2.5 MG/0.5 ML VIAL.NEB NEB SCH ×4 (01:43→20:01)
[2022-06-20 04:00] VITALS: BP 116/71
[2022-06-20] MEDS: MEROPENEM 1 G in IV NS 0.9% 100 ML IV SCH ×3 (04:42→20:16)
[2022-06-20] MEDS: VANCOMYCIN HCL 0.75 GM in IV D5W 250 ML IV SCH ×2 (06:35→18:01)
[2022-06-20 06:47] LABS: BASOPHILS % (AUTO) 0.4 % (0.0-2.0); EOSINOPHILS % (AUTO) 4.4 % (0.0-6.0); HEMATOCRIT 25 % (33-45); HEMOGLOBIN 8.1 g/dL (11.5-14.8); LYMPHOCYTES # (AUTO) 0.6 K/uL (0.8-4.8); LYMPHOCYTES % (AUTO) 11.4 % (20.0-44.0); MEAN CORPUSCULAR HGB CONC 32 g/dl (31.0-36.0); MEAN CORPUSCULAR VOLUME 100 fL (82-100); MONOCYTES # (AUTO) 0.3 K/uL (0.1-1.30); MONOCYTES % (AUTO) 5.9 % (2.0-12.0); NEUTROPHILS # (AUTO) 4.1 K/uL (1.8-8.9); NEUTROPHILS % (AUTO) 77.9 % (43.0-81.0); PLATELET COUNT (AUTO) 199 K/uL (150-450); RED BLOOD CELL COUNT(AUTO) 2.52 MIL/uL (4.0-5.2); WHITE BLOOD COUNT (AUTO) 5.2 K/uL (4.3-11.0)
--- NOTE | 2022-06-20 06:49 | NUR ---
noc rn closing note patient in bed, obtunded. no s/s of apparent distress on 3lpm of o2 via nc. not exhibiting pain via flacc. reading throughout out with 81 bpm this am. Glucerna resumed running @75mls/hr tolerating well with no residual. rt. hand 22g running IV vanco @250mls/hr. all needs attended. all scheduled medication administered. safety in place. will endorse to morning shift rn for continuity of patient care.
[2022-06-20 07:06] LABS: CALCIUM, SERUM 8.2 mg/dL (8.5-10.1); CREATININE 0.4 mg/dL (0.6-1.3); POTASSIUM 3.7 mmol/L (3.5-5.1)
--- NOTE | 2022-06-20 07:41 | NUR ---
TRANSITIONAL CARE MANAGER OPENING NOTE Patient in bed, asleep. Obtunded. On O2 at 3 LPM via NC. IV access on KOFI midline, SL and Right hand #22 infusing NS at 75 ml/hr. G-tube in place running Glucerna 1.2 at 75 ml/hr. Purewick in place draining to a yellow colored urine. On tele monitoring showing SR, HR on the 80's. Safety precautions in place: bed in low, locked position; siderails up x 2; call light within reach. Will continue to monitor.
[2022-06-20 09:00] VITALS: BP 113/67
[2022-06-20] MEDS: PANTOPRAZOLE 40 MG/PACK PACK GT SCH (09:12)
[2022-06-20] MEDS: ASCORBIC ACID 500 MG TABLET GT SCH (09:12)
[2022-06-20] MEDS: MULTIVIT W/MINERALS 1 TAB TABLET GT SCH (09:12)
[2022-06-20] MEDS: ZINC SULFATE 220 MG CAPSULE GT SCH (09:12)
[2022-06-20] MEDS: PHENYTOIN SUSP UDC 100 MG/4 ML UDC GT SCH ×2 (09:12→17:00)
[2022-06-20] MEDS: ENOXAPARIN SODIUM 40 MG/0.4 ML DISP.SYRIN SQ SCH (09:13)
[2022-06-20] MEDS: LEVETIRACETAM SOL (5 ML) 100 MG/ML UDC GT SCH ×2 (09:13→17:00)
--- NOTE | 2022-06-20 11:00 | NUR ---
RN NOTE Purewick changed.
[2022-06-20] MEDS: PROSOURCE / PROSTAT (PYXIS) 30 ML UDC GT SCH ×2 (12:37→17:00)
[2022-06-20 13:00] VITALS: BP 109/63
[2022-06-20] MEDS: GLUCERNA 1.2 1,000 ML BOTTLE GT SCH (14:15)
[2022-06-20 17:00] VITALS: BP 115/68
[2022-06-20] MEDS: IV NS 0.9% 1,000 ML IV PRN (17:01)
--- NOTE | 2022-06-20 19:17 | NUR ---
FORENSIC STRUCTURAL ENGINEER CLOSING NOTE Patient in bed, asleep. Obtunded. On O2 at 3 LPM via NC. IV access on KOFI midline, SL and Right hand #22 infusing NS at 75 ml/hr. G-tube in place running Glucerna 1.2 at 75 ml/hr. Purewick in place draining to a yellow colored urine with an output of 450 cc. On tele monitoring showing SR, HR on the 80's. Patient kept clean and dry. Due meds given. Turned and repositioned, as tolerated. Safety precautions in place: bed in low, locked position; siderails up x 2; call light within reach. Will endorse to shift supervisor melting nurse for KWAME.
--- NOTE | 2022-06-20 20:02 | NUR ---
RN OPENING NOTES RECEIVED PT IN BED, ASLEEP, OPENS EYES TO TACTILE STIMULI. OBTUNDED. ON NC 3LPM AND TOLERATING WELL. NO SOB NOTED. NO S/SX OF RESPIRATORY DISTRESS NOTED. TELE MONITOR DETECTS SR WITH RATE OF 80s. IV ACCESS IN KOFI MIDLINE AND R HAND #22G RUNNING NS @ 75 ML/HR. SAFETY PRECAUTIONS IN PLACE: BED IN LOWEST, LOCKED POSITION, SIDERAILS UPx2, AND BRAKES ON. TABLE AND CALL LIGHT WITHIN REACH. ALL NEEDS MET AT THIS TIME.
[2022-06-20 21:00] VITALS: BP 105/64
[2022-06-21] MEDS: BLOOD SUGAR DIAGNOSTIC 1 EACH STRIP IN SCH ×5 (00:17→23:18)
[2022-06-21] MEDS: INSULIN REGULAR, HUMAN 100 UNIT/ML 3 ML VIAL SQ PRN ×2 (00:17→05:27)
[2022-06-21 01:00] VITALS: BP 104/61
[2022-06-21] MEDS: ALBUTEROL FS 2.5 MG/0.5 ML VIAL.NEB NEB SCH ×4 (02:01→19:58)
[2022-06-21 05:00] VITALS: BP 118/71
[2022-06-21] MEDS: MEROPENEM 1 G in IV NS 0.9% 100 ML IV SCH ×3 (05:26→21:06)
[2022-06-21] MEDS: IV NS 0.9% 1,000 ML IV PRN (05:26)
[2022-06-21] MEDS: VANCOMYCIN HCL 0.75 GM in IV D5W 250 ML IV SCH (06:25)
--- NOTE | 2022-06-21 06:39 | NUR ---
RN CLOSING NOTES PT IN BED, ASLEEP, OPENS EYES TO TACTILE STIMULI. OBTUNDED. ON NC 3LPM AND TOLERATING WELL. NO SOB NOTED. NO S/SX OF RESPIRATORY DISTRESS NOTED. TELE MONITOR DETECTS SR WITH RATE OF 70-80s. IV ACCESS IN KOFI MIDLINE AND R HAND #22G RUNNING NS @ 75 ML/HR. ALL ORDERS CARRIED OUT. ALL NEEDS MET. PT KEPT CLEAN AND DRY. SAFETY PRECAUTIONS IN PLACE: BED IN LOWEST, LOCKED POSITION, SIDERAILS UPx2, AND BRAKES ON. TABLE AND CALL LIGHT WITHIN REACH. WILL ENDORSE TO ONCOMING SHIFT FOR KWAME.
[2022-06-21 07:10] LABS: BASOPHILS % (AUTO) 0.6 % (0.0-2.0); EOSINOPHILS % (AUTO) 5.4 % (0.0-6.0); HEMATOCRIT 25 % (33-45); LYMPHOCYTES # (AUTO) 0.8 K/uL (0.8-4.8); LYMPHOCYTES % (AUTO) 17.6 % (20.0-44.0); MEAN CORPUSCULAR HGB CONC 32 g/dl (31.0-36.0); MEAN CORPUSCULAR VOLUME 101 fL (82-100); MONOCYTES # (AUTO) 0.3 K/uL (0.1-1.30); MONOCYTES % (AUTO) 6.2 % (2.0-12.0); NEUTROPHILS # (AUTO) 3.4 K/uL (1.8-8.9); NEUTROPHILS % (AUTO) 70.2 % (43.0-81.0); PLATELET COUNT (AUTO) 226 K/uL (150-450); RED BLOOD CELL COUNT(AUTO) 2.48 MIL/uL (4.0-5.2); WHITE BLOOD COUNT (AUTO) 4.8 K/uL (4.3-11.0)
--- NOTE | 2022-06-21 07:10 | NUR ---
METAL FURRER OPENING NOTES RECEIVED PT AWAKE IN BED. NON VERBAL AND UNABLE TO FOLLOW COMMAND. NO SIGNS OF PAIN OR DISCOMFORT AT THIS TIME. RESPIRATIONS ARE EQUAL AND UNLABORED WITH NO SOB. PT IS ON NC 3L AND TOLERATING IT WELL. GT IS PATENT AND INTACT WITH GTF RUNNING AT PRESCRIBED SETTINGS. IV ACCES ON KOFI MIDLINE AND RIGHT HAND 22G PATENT AND INTACT. HOB ELEVATED TO 30-45 DEGREES. SIDERAILS UP AT ALL TIMES. CALL LIGHT WITHIN REACH. WILL CONTINUE CURRENT PLAN OF CARE.
[2022-06-21 07:33] LABS: CALCIUM, SERUM 8.1 mg/dL (8.5-10.1); CREATININE 0.4 mg/dL (0.6-1.3)
[2022-06-21 09:00] VITALS: BP 119/67
--- NOTE | 2022-06-21 09:21 | NUR ---
CLIENT SERVICE EXECUTIVE NOTES ACCIDENTLY PULLED AMLODIPINE BUT MEDICATION WAS PROTONIX FROM [facility]MN[facility]. EXITED OUT OF [facility]MNICELL AND PULLED PROTONIX AND RETURNED AMLODIPINE IN CORRECT BIN. ONLY ONE DOSE OF PROTONIX GIVEN. NOTIFIED PHARMACY AND MADE AWARE. PHARMACY SAID ITS OK JUST GIVE CORRECT DOSE.
[2022-06-21] MEDS: PHENYTOIN SUSP UDC 100 MG/4 ML UDC GT SCH ×2 (09:27→17:02)
[2022-06-21] MEDS: LEVETIRACETAM SOL (5 ML) 100 MG/ML UDC GT SCH ×2 (09:27→16:47)
[2022-06-21] MEDS: MULTIVIT W/MINERALS 1 TAB TABLET GT SCH (09:28)
[2022-06-21] MEDS: ZINC SULFATE 220 MG CAPSULE GT SCH (09:28)
[2022-06-21] MEDS: PANTOPRAZOLE 40 MG/PACK PACK GT SCH (09:28)
[2022-06-21] MEDS: ASCORBIC ACID 500 MG TABLET GT SCH (09:29)
[2022-06-21] MEDS: ENOXAPARIN SODIUM 40 MG/0.4 ML DISP.SYRIN SQ SCH (09:30)
--- NOTE | 2022-06-21 10:23 | NUR ---
WOUND CARE CONSULT: PT RESTING AT THIS TIME. SKIN ASSESSMENT LIMITED TO EARS AT THIS TIME. BILATERAL EAR DEEP TISSUE INJURIES IN EVOLUTION, NOTED PRESENT ON ADMISSION. ADMISSION PHOTOS INDICATE SACRAL PRESSURE ULCER AND FOOT WOUNDS, ALL PRESENT ON ADMISSION. DR TORRES AND DR VILLATORO CALLED FOR SURGICAL AND DPM CONSULTS. FIRST STEP LOW AIRLOSS MATTRESS IS ON ORDER. DISCUSSED SKIN PROTECTION WITH NURSING STAFF. MD IN AGREEMENT WITH PLAN OF CARE. Addendum: 06/21/22 at 1025 by ALFIE FUENTES WNDNU Amended: Links added.
[2022-06-21] MEDS: PROSOURCE / PROSTAT (PYXIS) 30 ML UDC GT SCH ×2 (10:30→16:41)
[2022-06-21 13:00] VITALS: BP 119/69
[2022-06-21] MEDS: GLUCERNA 1.2 1,000 ML BOTTLE GT SCH (15:40)
--- NOTE | 2022-06-21 16:48 | NUR ---
TELEVISION PRODUCER NOTES Keppra medication wasn't registering when getting scanned on [employer]. Pharmacy made aware and instructed to get keppra from other [facility] and bring first batch to them. Returned original keppra to pharmacy.
[2022-06-21 17:00] VITALS: BP 123/78
--- NOTE | 2022-06-21 18:23 | NUR ---
MEDICAL OFFICE PROFESSIONAL INSTRUCTOR CLOSING NOTES PT AWAKE IN BED. NON VERBAL AND UNABLE TO FOLLOW COMMAND. NO SIGNS OF PAIN OR DISCOMFORT AT THIS TIME. RESPIRATIONS ARE EQUAL AND UNLABORED WITH NO SOB. PT IS ON NC 3L AND TOLERATING IT WELL WITH 02 SATURATION AT 97%. PT IS ON EXTERNAL DERMATOLOGY PROCEDURAL PHYSICIAN SINUS RYTHM 85. GT IS PATENT AND INTACT WITH GTF RUNNING AT PRESCRIBED SETTINGS. NO GASTIRC RESIUDAL NOTED. IV ACCES ON KOFI MIDLINE AND RIGHT HAND 22G PATENT AND INTACT. HOB ELEVATED TO 30-45 DEGREES. SIDERAILS UP AT ALL TIMES. BED ALARM ON. CALL LIGHT WITHIN REACH. ENDORSED TO WET AND DRY SUGAR BIN OPERATOR RN FOR CONTINUATION OF CARE.
[2022-06-21] MEDS: VANCOMYCIN 0.75 GM in IV NS 0.9% 250 ML IV SCH (21:02)
[2022-06-21 22:04] VITALS: BP 105/68
[2022-06-21] MEDS: THERAHONEY GEL 1.5 OZ TUBE TP SCH (22:09)
--- NOTE | 2022-06-22 00:15 | NUR ---
SANDBLAST CARVER NOTE PATIENT'S BS IS 88, 120 ML OF APPLE JUICENG IVEN THROUGH G-TUBE TO THE PATIENT.
[2022-06-22 01:03] VITALS: BP 101/61
[2022-06-22] MEDS: ALBUTEROL FS 2.5 MG/0.5 ML VIAL.NEB NEB SCH ×4 (02:09→19:54)
[2022-06-22] MEDS: MEROPENEM 1 G in IV NS 0.9% 100 ML IV SCH ×3 (04:40→20:26)
[2022-06-22 05:18] VITALS: BP 122/68
[2022-06-22] MEDS: BLOOD SUGAR DIAGNOSTIC 1 EACH STRIP IN SCH ×3 (06:19→17:29)
[2022-06-22 07:15] LABS: BASOPHILS # (AUTO) 0.1 K/uL (0.0-0.2); BASOPHILS % (AUTO) 1.1 % (0.0-2.0); EOSINOPHILS % (AUTO) 6.1 % (0.0-6.0); HEMATOCRIT 26 % (33-45); HEMOGLOBIN 8.4 g/dL (11.5-14.8); LYMPHOCYTES # (AUTO) 1.2 K/uL (0.8-4.8); LYMPHOCYTES % (AUTO) 22.7 % (20.0-44.0); MEAN CORPUSCULAR HGB CONC 32 g/dl (31.0-36.0); MEAN CORPUSCULAR VOLUME 101 fL (82-100); MONOCYTES # (AUTO) 0.4 K/uL (0.1-1.30); MONOCYTES % (AUTO) 8.3 % (2.0-12.0); NEUTROPHILS # (AUTO) 3.2 K/uL (1.8-8.9); NEUTROPHILS % (AUTO) 61.8 % (43.0-81.0); PLATELET COUNT (AUTO) 271 K/uL (150-450); RED BLOOD CELL COUNT(AUTO) 2.62 MIL/uL (4.0-5.2); WHITE BLOOD COUNT (AUTO) 5.2 K/uL (4.3-11.0)
[2022-06-22 07:54] LABS: CALCIUM, SERUM 8.3 mg/dL (8.5-10.1); CREATININE 0.4 mg/dL (0.6-1.3)
[2022-06-22] MEDS: VANCOMYCIN 0.75 GM in IV NS 0.9% 250 ML IV SCH (08:05)
[2022-06-22 09:00] VITALS: BP 113/69
[2022-06-22] MEDS: THERAHONEY GEL 1.5 OZ TUBE TP SCH (09:28)
[2022-06-22] MEDS: ENOXAPARIN SODIUM 40 MG/0.4 ML DISP.SYRIN SQ SCH (09:33)
[2022-06-22] MEDS: PROSOURCE / PROSTAT (PYXIS) 30 ML UDC GT SCH ×2 (09:33→17:32)
[2022-06-22] MEDS: PANTOPRAZOLE 40 MG/PACK PACK GT SCH (09:33)
[2022-06-22] MEDS: MULTIVIT W/MINERALS 1 TAB TABLET GT SCH (09:34)
[2022-06-22] MEDS: LEVETIRACETAM SOL (5 ML) 100 MG/ML UDC GT SCH ×2 (09:34→17:32)
[2022-06-22] MEDS: ASCORBIC ACID 500 MG TABLET GT SCH (09:34)
[2022-06-22] MEDS: PHENYTOIN SUSP UDC 100 MG/4 ML UDC GT SCH ×2 (09:34→17:32)
[2022-06-22] MEDS: ZINC SULFATE 220 MG CAPSULE GT SCH (09:34)
[2022-06-22] MEDS: INSULIN REGULAR, HUMAN 100 UNIT/ML 3 ML VIAL SQ PRN (11:39)
[2022-06-22 12:00] VITALS: BP 119/73
[2022-06-22 16:00] VITALS: BP 107/76
[2022-06-22] MEDS: GLUCERNA 1.2 1,000 ML BOTTLE GT SCH (17:50)
[2022-06-22] MEDS: IV NS 0.9% 1,000 ML IV PRN (18:41)
--- NOTE | 2022-06-22 19:00 | NUR ---
CHURCH WORKER OPENING NOTES RECEIVED PT IN BED WITH EYES OPENING. PATIENT IS NON-VERBAL, UNABLE TO ACCESS HER MIND STATUS. SHE IS ON 3LPM OXYGEN VIA NC; TOLERATING WELL. O 2 SAT IS 99%. NO S/S OF SOB OR DISTRESS. PATIENT IS ON EXTERNAL TELE MONITOR, ON THE MONITOR, HEARTY RHYTHM SR WITH RATE OF 80s. IV ACCESS: ONE IS AT HER R UA MIDLINE, #18G, RUNNING NS @ 75 ML/HR. AND ANOTHER ONE IS AT HER R HAND #22G, SL. SAFETY PRECAUTIONS IN PLACE: BED IN LOWEST AND LOCKED POSITION, SIDE RAILS UP x 3, TABLE AND CALL LIGHT WITHIN REACH. WILL CONTINUE MONITOR THE PATIENT AND PROVIDE THE CARE PATIENT NEEDS. Addendum: 06/23/22 at 0537 by NICK MUNOZ RN G TUBE PLACEMENT IS CHECKED, PATENT AND INTACT. ZERO RESIDUAL. G- TUBE IS RUNNING GLUCERNA 1.2 @ 75 ML / HR.
--- NOTE | 2022-06-22 19:15 | NUR ---
RN CLOSING NOTES PT IN BED, NON VERBAL, UNABLE TO FOLLOW COMMAND. NO SIGNS OF PAIN OR DISCOMFORT AT THIS TIME. RESPIRATIONS ARE EQUAL AND UNLABORED WITH NO SOB. PT IS ON NC 3L AND TOLERATING IT WELL WITH 02 SATURATION AT 99%. PT IS ON EXTERNAL TIRE RETREADER SINUS RYTHM 85. GT IS PATENT AND INTACT WITH GTF RUNNING AT PRESCRIBED SETTINGS. NO GASTIRC RESIDUAL NOTED. IV ACCES ON KOFI MIDLINE AND RIGHT HAND 22G PATENT AND INTACT. HOB ELEVATED TO 30-45 DEGREES. SIDERAILS UP AT ALL TIMES. BED ALARM ON. CALL LIGHT WITHIN REACH. ENDORSED TO ICE GUARD INSPECTOR RN FOR CONTINUATION OF CARE.
[2022-06-22 20:00] VITALS: BP 122/57
[2022-06-23] VITALS: BP 115/59
[2022-06-23] MEDS: BLOOD SUGAR DIAGNOSTIC 1 EACH STRIP IN SCH ×2 (00:08→05:40)
[2022-06-23] MEDS: ALBUTEROL FS 2.5 MG/0.5 ML VIAL.NEB NEB SCH ×3 (01:27→13:29)
[2022-06-23 04:00] VITALS: BP 110/61
[2022-06-23] MEDS: MEROPENEM 1 G in IV NS 0.9% 100 ML IV SCH ×2 (04:01→14:35)
[2022-06-23] MEDS: IV NS 0.9% 1,000 ML IV PRN (04:03)
[2022-06-23 07:23] LABS: BASOPHILS % (AUTO) 0.3 % (0.0-2.0); EOSINOPHILS % (AUTO) 5.4 % (0.0-6.0); HEMATOCRIT 31 % (33-45); HEMOGLOBIN 9.6 g/dL (11.5-14.8); LYMPHOCYTES # (AUTO) 1.1 K/uL (0.8-4.8); LYMPHOCYTES % (AUTO) 23.1 % (20.0-44.0); MEAN CORPUSCULAR HGB CONC 31 g/dl (31.0-36.0); MEAN CORPUSCULAR VOLUME 103 fL (82-100); MONOCYTES # (AUTO) 0.3 K/uL (0.1-1.30); NEUTROPHILS # (AUTO) 3.1 K/uL (1.8-8.9); NEUTROPHILS % (AUTO) 64.2 % (43.0-81.0); PLATELET COUNT (AUTO) 118 K/uL (150-450); RED BLOOD CELL COUNT(AUTO) 2.96 MIL/uL (4.0-5.2); WHITE BLOOD COUNT (AUTO) 4.9 K/uL (4.3-11.0)
--- NOTE | 2022-06-23 07:36 | NUR ---
ASSOCIATE MEDIA PLANNER CLOSING NOTES PT IS IN BED SLEEPING. EASILY BEING AROUSED. NON-VERBAL. SHE IS ON 3LPM OXYGEN VIA NC; TOLERATING WELL. O2 SAT IS 99%. NO S/S OF SOB OR DISTRESS. PATIENT IS ON EXTERNAL TELE MONITOR, ON THE MONITOR, HEARTY RHYTHM SR WITH RATE OF 80s. IV ACCESS: ONE IS AT HER R UA MIDLINE, #18G, RUNNING NS @ 75 ML/HR. AND ANOTHER ONE IS AT HER R HAND #22G, SL. g-TUBE IS PATENT AND INTACT, RUNNING GLUCERNA 1.2 @75 ML/HR. SAFETY PRECAUTIONS IN PLACE: BED IN LOWEST AND LOCKED POSITION, SIDE RAILS UP x 3, TABLE AND CALL LIGHT WITHIN REACH. WILL ENDORSE THE NEXT SHIFT NURSE FOR CONTINUING PATIENT CARE.
[2022-06-23 08:00] VITALS: BP 122/74
[2022-06-23] MEDS: PHENYTOIN SUSP UDC 100 MG/4 ML UDC GT SCH (08:18)
[2022-06-23] MEDS: MULTIVIT W/MINERALS 1 TAB TABLET GT SCH (08:18)
[2022-06-23] MEDS: ZINC SULFATE 220 MG CAPSULE GT SCH (08:19)
[2022-06-23] MEDS: LEVETIRACETAM SOL (5 ML) 100 MG/ML UDC GT SCH (08:19)
[2022-06-23] MEDS: PANTOPRAZOLE 40 MG/PACK PACK GT SCH (08:19)
[2022-06-23] MEDS: PROSOURCE / PROSTAT (PYXIS) 30 ML UDC GT SCH ×3 (08:20→12:24)
[2022-06-23] MEDS: ENOXAPARIN SODIUM 40 MG/0.4 ML DISP.SYRIN SQ SCH (08:23)
[2022-06-23] MEDS: THERAHONEY GEL 1.5 OZ TUBE TP SCH (08:35)
[2022-06-23] MEDS: ASCORBIC ACID 500 MG TABLET GT SCH (08:35)
[2022-06-23] MEDS ORDERED: GLUCERNA 1.2 1,000 ML BOTTLE GT SCH (09:30)
[2022-06-23 14:49] VITALS: BP 96/63
--- NOTE | 2022-06-23 17:01 | NUR ---
Patient discharged. Reported given to nurse at receiving facility. Midline and peripheral IV removed without complications. Patient transported off unit via Ambulance tra
== END 2022-06-23 17:00 | DRG 871 ==
LOC: ER 06:23 → TRANSITION 09:08 → TELE1 12:50
PROVIDERS: ADMIT Nurse Practitioner Acute Care; ATTEND Internal Medicine
DX: A41.9 Sepsis, unspecified organism (principal); E43 Unspecified severe protein-calorie malnutrition; G93.41 Metabolic encephalopathy; I21.4 Non-ST elevation (NSTEMI) myocardial infarction; J96.01 Acute respiratory failure with hypoxia; J69.0 Pneumonitis due to inhalation of food and vomit; R53.2 Functional quadriplegia; R65.21 Severe sepsis with septic shock; J15.6 Pneumonia due to other Gram-negative bacteria; D68.59 Other primary thrombophilia; N39.0 Urinary tract infection, site not specified; E87.20 Acidosis, unspecified; N17.9 Acute kidney failure, unspecified; J98.11 Atelectasis; M00.9 Pyogenic arthritis, unspecified; Z20.822 Contact with and (suspected) exposure to COVID-19; Z51.5 Encounter for palliative care; Z66 Do not resuscitate; E78.5 Hyperlipidemia, unspecified; I10 Essential (primary) hypertension; Z93.1 Gastrostomy status; R13.10 Dysphagia, unspecified; E11.9 Type 2 diabetes mellitus without complications; F32.9 Major depressive disorder, single episode, unspecified; M24.561 Contracture, right knee; M24.562 Contracture, left knee; Z88.8 Allergy status to other drugs, medicaments and biological substances; Z79.51 Long term (current) use of inhaled steroids; Z79.4 Long term (current) use of insulin; Z79.899 Other long term (current) drug therapy; B96.89 Other specified bacterial agents as the cause of diseases classified elsewhere; E86.0 Dehydration; G40.909 Epilepsy, unspecified, not intractable, without status epilepticus; Z74.01 Bed confinement status; K21.9 Gastro-esophageal reflux disease without esophagitis; E88.09 Other disorders of plasma-protein metabolism, not elsewhere classified; Z74.09 Other reduced mobility; Z86.718 Personal history of other venous thrombosis and embolism; Z87.440 Personal history of urinary (tract) infections; F09 Unspecified mental disorder due to known physiological condition; L89.90 Pressure ulcer of unspecified site, unspecified stage; S91.312A Laceration without foreign body, left foot, initial encounter; S91.311A Laceration without foreign body, right foot, initial encounter; S91.012A Laceration without foreign body, left ankle, initial encounter; S91.011A Laceration without foreign body, right ankle, initial encounter; S91.119A Laceration without foreign body of unspecified toe without damage to nail, initial encounter; X58.XXXA Exposure to other specified factors, initial encounter; Y92.9 Unspecified place or not applicable; L89.156 Pressure-induced deep tissue damage of sacral region; L89.896 Pressure-induced deep tissue damage of other site; F03.90 Unspecified dementia, unspecified severity, without behavioral disturbance, psychotic disturbance, mood disturbance, and anxiety
CPT/HCPCS: 36415; 71045-TC; 73502; 74018; 80048-TC; 80076-TC; 80202-TC; 81001; 82962-TC; 83605-TC; 83735-TC; 84100-TC; 84484-TC; 85025-TC; 85652-TC; 85730-TC; 86140-TC; 87040-TC; 87081-TC; 87086-TC; 94799-TC; A4217; A4629; C9803; G0378; J1650; J1953; J2185; J3370; J7030; J7040; J7050; J7060